=== PATIENT | male | born 1980 | race American Indian/Alaskan Native ===

== ENCOUNTER 2017-07-25 15:51 | Emergency (ER) | payer MEDICAID ==
[2017-07-25 16:04] VITALS: BP 124/73
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
[2017-07-25] MEDS ORDERED: Ciprofloxacin 500 MG Tab PO ONE (18:15)
== END 2017-07-25 18:20 | disposition home or self-care (01) ==
LOC: DL.ED 15:51
DX: T83.511S Infection and inflammatory reaction due to indwelling urethral catheter, sequela (principal); K21.9 Gastro-esophageal reflux disease without esophagitis; F32.9 Major depressive disorder, single episode, unspecified; Z96.0 Presence of urogenital implants; Z98.890 Other specified postprocedural states; Z79.899 Other long term (current) drug therapy; Z87.820 Personal history of traumatic brain injury
CPT/HCPCS: 81003; 87086; 99284; A9270; 87088; 87186

== ENCOUNTER 2017-12-08 13:55 | Inpatient (IN) | payer MEDICAID ==
[2017-12-08] MEDS ORDERED: Sodium Chloride 0.9% 1,000 ML IV ONE ×2 (13:56→16:23)
[2017-12-08] MEDS ORDERED: Acetaminophen 325 MG Tab PO ONE (13:57)
[2017-12-08] MEDS: Sodium Chloride 0.9% 10 ML Syringe FLUSH PRN (14:09)
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
--- NOTE | 2017-12-08 14:33 | CR ---
Clinical history: 37-year-old male chest pain. Interpretation: Evidence of lower cervical spinal fusion. Melva thorax otherwise unremarkable on this AP portable film. Normal cardiac silhouette and no cephalization of vascular flow, signs of alveolar edema or dependent pleural fluid accumulation. No lung mass, hilar lymphadenopathy or focal lobar pneumonia. No pneumothorax. CONCLUSION: No acute cardiopulmonary abnormality.
[2017-12-08 14:38] LABS: ANION GAP 12.3; CHLORIDE,CL 97 mmol/L (101-111); SODIUM,NA 131 mmol/L (135-145)
[2017-12-08] MEDS ORDERED: Zolpidem 5 MG Tab PO PRN (16:33)
[2017-12-08] MEDS ORDERED: Docusate Sodium 100 MG Cap PO PRN (16:33)
[2017-12-08] MEDS ORDERED: Ondansetron 4 MG/2 ML SDV IVPUSH PRN (16:33)
[2017-12-08] MEDS ORDERED: Albuterol 0.083% 2.5 MG/3 ML Neb Soln NEB PRN (16:33)
[2017-12-08] MEDS ORDERED: Magnesium Hydroxide 400 MG/5 ML Susp 30 ML Cup PO PRN (16:33)
[2017-12-08] MEDS ORDERED: Morphine 2 MG/ML Syringe IVPUSH PRN (16:33)
[2017-12-08] MEDS ORDERED: Polyethylene Glycol 3350 Powder 17 GM Packet PO PRN (16:33)
[2017-12-08] MEDS ORDERED: Acetaminophen 325 MG Tab PO PRN (16:33)
[2017-12-08] MEDS ORDERED: Promethazine 25 MG/ML SDV IM PRN (16:33)
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
[2017-12-08] MEDS: Multivitamins,Therapeutic Tab PO SCH (17:36)
[2017-12-08] MEDS: Oseltamivir 75 MG Cap PO SCH ×2 (17:36→21:22)
[2017-12-08] MEDS: Acetaminophen/oxyCODONE 325-5 MG Tab PO SCH ×2 (17:37→21:22)
[2017-12-08] MEDS: PARoxetine 20 MG Tab PO SCH (17:37)
[2017-12-08] MEDS: Ketorolac 30 MG/ML SDV IVPUSH PRN (17:39)
[2017-12-08] MEDS: Albuterol/Ipratropium 3.0-0.5 MG/3 ML Neb Soln NEB SCH (18:26)
[2017-12-08] MEDS ORDERED: Sodium Chloride 0.9% 1,000 ML IV SCH (21:45)
[2017-12-09] MEDS: Acetaminophen/oxyCODONE 325-5 MG Tab PO SCH ×6 (01:27→22:29)
[2017-12-09] MEDS: Albuterol/Ipratropium 3.0-0.5 MG/3 ML Neb Soln NEB SCH ×4 (01:29→18:27)
[2017-12-09 07:32] LABS: ANION GAP 8.9; CHLORIDE,CL 110 mmol/L (101-111); SODIUM,NA 138 mmol/L (135-145)
[2017-12-09] MEDS: Ketorolac 30 MG/ML SDV IVPUSH PRN ×2 (08:15→13:49)
[2017-12-09] MEDS: Enoxaparin 40 MG/0.4 ML Syringe SUBCUT SCH (08:16)
[2017-12-09] MEDS: Sodium Chloride 0.9% 10 ML Syringe FLUSH PRN (08:17)
[2017-12-09] MEDS: Multivitamins,Therapeutic Tab PO SCH (08:17)
[2017-12-09] MEDS: Oseltamivir 75 MG Cap PO SCH ×2 (08:17→21:43)
[2017-12-09] MEDS: PARoxetine 20 MG Tab PO SCH (08:17)
[2017-12-09] MEDS: Ascorbic Acid 500 MG Tab PO SCH (08:17)
[2017-12-09] MEDS: Sodium Chloride 0.9% 1,000 ML IV SCH ×2 (09:00→21:38)
--- NOTE | 2017-12-09 09:44 | PCM.PN ---
- General Info Date of Service: 12/09/17 Admission Dx/Problem (Free Text): Admission Diagnosis/Problem Admission Diagnosis/Problem Influenza due to influenza A virus Subjective Update: Patient stated that he feels slightly better but his cough is worse. Now his coughing up a lot of green thick mucus. His shortness of breath improved. He still having fever and chills. Toradol helps. He denies nausea, vomiting, chest pain, abdominal pain, diarrhea, any other symptoms or concerns - Patient Data Vitals - Most Recent: Last Vital Signs Temp 36.9 C 12/09/17 08:00 Pulse 80 12/09/17 08:48 Resp 16 12/09/17 08:00 BP 114/64 12/09/17 08:00 Pulse Ox 95 12/09/17 08:00 Weight - Most Recent: 64.274 kg I&O - Last 24 Hours: Intake & Output 12/08/17 12/09/17 12/09/17 22:59 06:59 14:59 Intake Total 2220 912 125 Output Total 1175 450 Balance 1045 462 125 Lab Results Last 24 Hours: Laboratory Results - last 24 hr 12/09/17 12/09/17 Range/Units 07:00 07:00 WBC 12.2 H (5.0-10.0) 10^3/uL RBC 3.63 L (4.6-6.2) 10^6/uL Hgb 11.0 L D (14.0-18.0) g/dL Hct 34.2 L (40.0-54.0) % MCV 94.2 (80-100) fL MCH 30.3 (27.0-34.0) pg MCHC 32.2 L (33.0-35.0) g/dL Plt Count 200 (150-450) 10^3/uL Neut % (Auto) 78.5 H (42.2-75.2) % Lymph % (Auto) 12.7 L (20.5-50.1) % [place] % (Auto) 8.4 H (2-8) % Eos % (Auto) 0.2 L (1.0-3.0) % Baso % (Auto) 0.2 (0.0-1.0) % Sodium 138 (135-145) mmol/L Potassium 3.9 (3.6-5.0) mmol/L Chloride 110 D (101-111) mmol/L Carbon Dioxide 23.0 (21.0-31.0) mmol/L Anion Gap 8.9 BUN 11 (7-18) mg/dL Creatinine 0.6 (0.6-1.3) mg/dL Est Cr Clr Drug Dosing 154.73 mL/min Estimated GFR (MDRD) > 60 BUN/Creatinine Ratio 18.33 Glucose 101 (74-105) mg/dL Calcium 7.5 L (8.4-10.2) mg/dl Total Bilirubin 0.4 (0.2-1.0) mg/dL AST 43 H (10-42) IU/L ALT 53 (10-60) IU/L Alkaline Phosphatase 52 (42-121) IU/L Total Protein 5.4 L (6.7-8.2) g/dl Albumin 2.6 L (3.2-5.5) g/dl Globulin 2.8 Albumin/Globulin Ratio 0.93 Juliano Results Last 24 Hours: Microbiology 12/09/17 01:47 Gram Stain - Final Sputum - Expectorated Med Orders - Current: Current Medications Acetaminophen (Tylenol) 650 mg PO Q4H PRN PRN Reason: Pain (Mild 1-3)/fever Last Admin: 12/08/17 19:58 Dose: 650 mg Albuterol (Proventil Neb Soln) 2.5 mg NEB Q2H PRN PRN Reason: shortness of breath/wheezing Albuterol/Ipratropium (Duoneb 3.0-0.5 Mg/3 Ml) 3 ml NEB Q6HRRT [facility] Last Admin: 12/09/17 08:48 Dose: 3 ml Ascorbic Acid (Vitamin C) 500 mg PO DAILY [facility] Last Admin: 12/09/17 08:17 Dose: 500 mg Docusate Sodium (Colace) 100 mg PO BID PRN PRN Reason: Constipation Enoxaparin Sodium (Lovenox) 40 mg SUBCUT DAILY [facility] Last Admin: 12/09/17 08:16 Dose: 40 mg Levofloxacin/Dextrose 750 mg/ (Premix) 150 mls @ 100 mls/hr IV Q24H [facility] Sodium Chloride (Normal Saline) 1,000 mls @ 100 mls/hr IV ASDIRECTED [facility] Ketorolac Tromethamine (Toradol) 30 mg IVPUSH Q6H PRN PRN Reason: body aches, fever Stop: 12/13/17 16:33 Last Admin: 12/09/17 08:15 Dose: 30 mg Magnesium Hydroxide (Milk Of Magnesia) 30 ml PO Q12H PRN PRN Reason: Constipation Morphine Sulfate (Morphine) 2 mg IVPUSH Q2H PRN PRN Reason: Pain (severe 7-10) Multivitamins (Thera) 1 each PO DAILY [facility] Last Admin: 12/09/17 08:17 Dose: 1 each Ondansetron HCl (Zofran) 4 mg IVPUSH Q6H PRN PRN Reason: Nausea/Vomiting Oseltamivir Phosphate (Tamiflu) 75 mg PO BID [facility] Last Admin: 12/09/17 08:17 Dose: 75 mg Oxycodone/Acetaminophen (Percocet 325-5 Mg) 1 tab PO Q4H [facility] Last Admin: 12/09/17 05:28 Dose: 1 tab Paroxetine HCl (Paxil) 20 mg PO DAILY [facility] Last Admin: 12/09/17 08:17 Dose: 20 mg Polyethylene Glycol (Miralax) 17 gm PO DAILY PRN PRN Reason: Constipation Promethazine HCl (Phenergan) 12.5 mg IM Q6H PRN PRN Reason: Nausea/Vomiting Sodium Chloride (Saline Flush) 10 ml FLUSH ASDIRECTED PRN PRN Reason: Keep Vein Open Last Admin: 12/09/17 08:17 Dose: 10 ml Zolpidem Tartrate (Ambien) 5 mg PO BEDTIME PRN PRN Reason: Sleep Discontinued Medications Acetaminophen (Tylenol) 650 mg PO NOW ONE Stop: 12/08/17 13:58 Last Admin: 12/08/17 14:09 Dose: 650 mg Sodium Chloride (Normal Saline) 1,000 mls @ 999 mls/hr IV .BOLUS ONE Stop: 12/08/17 14:56 Last Infusion: 12/08/17 16:20 Dose: Infused Sodium Chloride (Normal Saline) 1,000 mls @ 250 mls/hr IV .BOLUS ONE Stop: 12/08/17 20:22 Last Admin: 12/08/17 17:33 Dose: 250 mls/hr Sodium Chloride (Normal Saline) 1,000 mls @ 100 mls/hr IV ASDIRECTED [facility] Stop: 12/09/17 07:44 Last Admin: 12/08/17 22:29 Dose: 100 mls/hr - Exam General: Alert, Oriented, Cooperative, No Acute Distress, Other (Still looks ill. ). No: Moderate Distress, Severe Distress, Sedated, Lethargic, Obtunded HEENT: Pupils Equal, Pupils Reactive, Other (Dry mouth) Neck: Supple, Trachea Midline, No JVD Lungs: Normal Respiratory Effort, Crackles, Rhonchi (Diffuse). No: Stridor, Wheezing Cardiovascular: Regular Rate, Regular Rhythm GI/Abdominal Exam: Normal Bowel Sounds, Soft, Non-Tender, No Organomegaly, No Distention, No Abnormal Bruit, No Mass (Male) Exam: Deferred Back Exam: Normal Inspection, Full Range of Motion. No: CVA Tenderness (L), CVA Tenderness (R) Extremities: Normal Inspection, Normal Range of Motion, Non-Tender, No Pedal Edema, Normal Capillary Refill Skin: Warm, Dry, Intact Neurological: No New Focal Deficit Psy/Mental Status: Alert, Normal Affect, Normal Mood - Problem List Review Problem List Initiated/Reviewed/Updated: Yes - My Orders Last 24 Hours: My Active Orders 12/08/17 16:44 Communication Order [RC] 08,20 12/08/17 16:45 Flutter Valve Therapy [RT Chest Physiotherapy] [RC] ASDIRECTED Multivitamins,Therapeutic [Thera] 1 each PO DAILY PARoxetine [Paxil] 20 mg PO DAILY 12/08/17 18:00 Acetaminophen/oxyCODONE [Percocet 325-5 MG] 1 tab PO Q4H 12/09/17 01:47 CULTURE SPUTUM + SMEAR [RM] Routine 12/09/17 09:00 Ascorbic Acid [Vitamin C] 500 mg PO DAILY 12/09/17 09:24 CXR [Chest 2V] [CR] Routine 12/09/17 09:30 Levofloxacin/Dextrose 5%-Water [Levaquin in D5W 750 MG/150 ML] 750 mg Premix Bag 1 bag IV Q24H Sodium Chloride 0.9% [Normal Saline] 1,000 ml IV ASDIRECTED - Plan Plan:: 57-year-old male with past medical history as above presented with history of, physical exam, workup consistent with influenza a and sepsis from viral infection #Influenza infection -Continue Tamiflu -Toradol IV and Tylenol by mouth as needed for body aches, headache, fever. Acetaminophen not to exceed 4000 milligram per 24 hours #Sepsis most likely due to viral infection Admission Lactic acid is 2.2. Patient received 4 L of normal saline upon admission Continue Tamiflu -We'll add levofloxacin for concern for committee acquired pneumonia #Probable committee acquired pneumonia -We'll repeat chest x-ray -Start levofloxacin empirically -Awaiting sputum culture results #Dehydration, due to influenza and decreased oral intake -Continue IV fluid at 100 mL per hour of normal saline -Fritz catheter for more accurate urine output. Patient also requested the Fritz catheter #Hyponatremia -Resolved Sodium on admission is 131 #Elevated liver enzymes Most likely from sepsis and dehydration Improved #Paraplegia, chronic Change position every 2 hours #Urine retention, 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 He does self-catheterization Fritz catheter is placed per patient's request #Chronic pain Continue oxycodone/acetaminophen that he takes at home #Depression and anxiety, chronic Stable Continue paroxetine CODE STATUS: Full Lovenox for DVT prophylaxis
--- NOTE | 2017-12-09 10:34 | CR ---
Clinical history: 37-year-old male with "influenza A" and possible pneumonia. Interpretation: No new signs of lobar pneumonia when compared to recent 08 December chest radiograph or... earlier CT scan chest 21 July 2014. Evidence of lower cervical spinal fusion. Normal cardiac silhouette without alveolar edema or dependent pleural effusion. No atelectasis/collapse. No pneumothorax.
[2017-12-09] MEDS: Levofloxacin/Dextrose 5%-Water 750 MG in Premix Bag 1 BAG IV SCH (11:01)
[2017-12-10] MEDS: Albuterol/Ipratropium 3.0-0.5 MG/3 ML Neb Soln NEB SCH ×4 (00:51→17:43)
[2017-12-10] MEDS: Acetaminophen/oxyCODONE 325-5 MG Tab PO SCH ×6 (02:58→21:57)
[2017-12-10] MEDS: Sodium Chloride 0.9% 1,000 ML IV SCH (07:46)
[2017-12-10] MEDS: Oseltamivir 75 MG Cap PO SCH ×2 (09:13→21:57)
[2017-12-10] MEDS: PARoxetine 20 MG Tab PO SCH (09:14)
[2017-12-10] MEDS: Ascorbic Acid 500 MG Tab PO SCH (09:14)
[2017-12-10] MEDS: Multivitamins,Therapeutic Tab PO SCH (09:14)
[2017-12-10] MEDS: Enoxaparin 40 MG/0.4 ML Syringe SUBCUT SCH (09:15)
[2017-12-10] MEDS: Levofloxacin/Dextrose 5%-Water 750 MG in Premix Bag 1 BAG IV SCH (10:33)
[2017-12-10] MEDS ORDERED: LORazepam 1 MG Tab PO PRN (11:57)
--- NOTE | 2017-12-10 11:58 | PCM.PN ---
- General Info Date of Service: 12/10/17 Admission Dx/Problem (Free Text): Admission Diagnosis/Problem Admission Diagnosis/Problem Influenza due to influenza A virus Subjective Update: Patient stated that he feels better. He said that he is breathing better and his cough improved. He denies fever or chills since yesterday evening, however he had sweats this morning. He denies nausea, vomiting, chest pain, abdominal pain, diarrhea, any other symptoms or concerns - Patient Data Vitals - Most Recent: Last Vital Signs Temp 36.9 C 12/10/17 11:00 Pulse 77 12/10/17 11:00 Resp 20 12/10/17 11:00 BP 115/69 12/10/17 11:00 Pulse Ox 99 12/10/17 11:00 Weight - Most Recent: 64.274 kg I&O - Last 24 Hours: Intake & Output 12/09/17 12/10/17 12/10/17 22:59 06:59 14:59 Intake Total 1560 984 223 Output Total 475 600 Balance 1085 384 223 Juliano Results Last 24 Hours: Microbiology 12/09/17 01:47 Gram Stain - Final Sputum - Expectorated Sputum Culture - Preliminary Normal [facility] Orders - Current: Current Medications Acetaminophen (Tylenol) 650 mg PO Q4H PRN PRN Reason: Pain (Mild 1-3)/fever Last Admin: 12/08/17 19:58 Dose: 650 mg Albuterol (Proventil Neb Soln) 2.5 mg NEB Q2H PRN PRN Reason: shortness of breath/wheezing Albuterol/Ipratropium (Duoneb 3.0-0.5 Mg/3 Ml) 3 ml NEB Q6HRRT [facility] Last Admin: 12/10/17 09:12 Dose: 3 ml Ascorbic Acid (Vitamin C) 500 mg PO DAILY [facility] Last Admin: 12/10/17 09:14 Dose: 500 mg Docusate Sodium (Colace) 100 mg PO BID PRN PRN Reason: Constipation Enoxaparin Sodium (Lovenox) 40 mg SUBCUT DAILY [facility] Last Admin: 12/10/17 09:15 Dose: 40 mg Levofloxacin/Dextrose 750 mg/ (Premix) 150 mls @ 100 mls/hr IV Q24H [facility] Last Admin: 12/10/17 10:33 Dose: 100 mls/hr Sodium Chloride (Normal Saline) 1,000 mls @ 100 mls/hr IV ASDIRECTED [facility] Last Admin: 12/10/17 07:46 Dose: 100 mls/hr Ketorolac Tromethamine (Toradol) 30 mg IVPUSH Q6H PRN PRN Reason: body aches, fever Stop: 12/13/17 16:33 Last Admin: 12/09/17 13:49 Dose: 30 mg Magnesium Hydroxide (Milk Of Magnesia) 30 ml PO Q12H PRN PRN Reason: Constipation Last Admin: 12/10/17 09:15 Dose: 30 ml Morphine Sulfate (Morphine) 2 mg IVPUSH Q2H PRN PRN Reason: Pain (severe 7-10) Multivitamins (Thera) 1 each PO DAILY [facility] Last Admin: 12/10/17 09:14 Dose: 1 each Ondansetron HCl (Zofran) 4 mg IVPUSH Q6H PRN PRN Reason: Nausea/Vomiting Oseltamivir Phosphate (Tamiflu) 75 mg PO BID [facility] Last Admin: 12/10/17 09:13 Dose: 75 mg Oxycodone/Acetaminophen (Percocet 325-5 Mg) 1 tab PO Q4H [facility] Last Admin: 12/10/17 09:14 Dose: 1 tab Paroxetine HCl (Paxil) 20 mg PO DAILY [facility] Last Admin: 12/10/17 09:14 Dose: 20 mg Polyethylene Glycol (Miralax) 17 gm PO DAILY PRN PRN Reason: Constipation Promethazine HCl (Phenergan) 12.5 mg IM Q6H PRN PRN Reason: Nausea/Vomiting Sodium Chloride (Saline Flush) 10 ml FLUSH ASDIRECTED PRN PRN Reason: Keep Vein Open Last Admin: 12/09/17 08:17 Dose: 10 ml Zolpidem Tartrate (Ambien) 5 mg PO BEDTIME PRN PRN Reason: Sleep Last Admin: 12/09/17 22:28 Dose: 5 mg Discontinued Medications Acetaminophen (Tylenol) 650 mg PO NOW ONE Stop: 12/08/17 13:58 Last Admin: 12/08/17 14:09 Dose: 650 mg Sodium Chloride (Normal Saline) 1,000 mls @ 999 mls/hr IV .BOLUS ONE Stop: 12/08/17 14:56 Last Infusion: 12/08/17 16:20 Dose: Infused Sodium Chloride (Normal Saline) 1,000 mls @ 250 mls/hr IV .BOLUS ONE Stop: 12/08/17 20:22 Last Admin: 12/08/17 17:33 Dose: 250 mls/hr Sodium Chloride (Normal Saline) 1,000 mls @ 100 mls/hr IV ASDIRECTED [facility] Stop: 12/09/17 07:44 Last Infusion: 12/09/17 10:27 Dose: Infused - Exam General: Alert, Oriented, Cooperative, No Acute Distress. No: Mild Distress, Moderate Distress, Severe Distress, Sedated, Lethargic, Obtunded HEENT: Pupils Equal, Pupils Reactive, EOMI, Mucous Membr. Moist/[place] Neck: Supple, Trachea Midline, No JVD Lungs: Clear to Auscultation, Normal Respiratory Effort. No: Decreased Breath Sounds, Crackles, Rales, Rhonchi, Rub, Stridor, Wheezing Cardiovascular: Regular Rate, Regular Rhythm GI/Abdominal Exam: Normal Bowel Sounds, Soft, Non-Tender, No Organomegaly, No Distention, No Abnormal Bruit, No Mass (Male) Exam: Deferred Back Exam: No: CVA Tenderness (L), CVA Tenderness (R) Extremities: Normal Inspection, Normal Range of Motion, Non-Tender, No Pedal Edema, Normal Capillary Refill Neurological: No New Focal Deficit Psy/Mental Status: Alert, Anxious. No: Suicidal Ideation, Homicidal Ideation, Hallucinations, Withdrawal Symptoms - Problem List Review Problem List Initiated/Reviewed/Updated: Yes - My Orders Last 24 Hours: My Active Orders 12/11/17 05:11 CBC WITH AUTO DIFF [HEME] Routine CMP [COMPREHENSIVE METABOLIC PN,CMP] [CHEM] AM - Plan Plan:: 57-year-old male with past medical history as above presented with history of, physical exam, workup consistent with influenza a and sepsis from viral infection #Influenza infection -Continue Tamiflu -Toradol IV and Tylenol by mouth as needed for body aches, headache, fever, maximum 5 doses. Acetaminophen not to exceed 4000 milligram per 24 hours #Sepsis most likely due to viral infection Admission Lactic acid is 2.2. Patient received 4 L of normal saline upon admission, patient had IV fluid infusion at 100 mL per hour. Patient's appetite improved so we'll stop his IV fluid infusion today. Continue Tamiflu -Continue levofloxacin #Probable committee acquired pneumonia -Repeat chest x-ray from yesterday did not report any infiltrates or pneumothorax -Continue levofloxacin empirically -Awaiting sputum culture results #Dehydration, due to influenza and decreased oral intake Improved. Patient is having good urine output Stop IV fluid as afternoon Encourage oral fluid intake -Fritz catheter for more accurate urine output. Patient also requested the Fritz catheter #Hyponatremia -Resolved Sodium on admission is 131 #Elevated liver enzymes Most likely from sepsis and dehydration Improved #Paraplegia, chronic Change position every 2 hours #Urine retention, 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 He does self-catheterization Fritz catheter is placed per patient's request #Chronic pain Continue oxycodone/acetaminophen that he takes at home #Depression and anxiety, chronic Stable Continue paroxetine -Add Ativan as needed as patient looks anxious. CODE STATUS: Full Lovenox for DVT prophylaxis
[2017-12-10] MEDS ORDERED: Bisacodyl 10 MG Supp RECTAL PRN (16:54)
[2017-12-11] MEDS: Acetaminophen/oxyCODONE 325-5 MG Tab PO SCH ×6 (01:56→21:30)
[2017-12-11] MEDS: Albuterol/Ipratropium 3.0-0.5 MG/3 ML Neb Soln NEB SCH ×4 (01:57→17:46)
[2017-12-11 07:04] LABS: ANION GAP 9.4; CHLORIDE,CL 104 mmol/L (101-111); SODIUM,NA 138 mmol/L (135-145)
[2017-12-11] MEDS: Ascorbic Acid 500 MG Tab PO SCH (08:54)
[2017-12-11] MEDS: Multivitamins,Therapeutic Tab PO SCH (08:54)
[2017-12-11] MEDS: Oseltamivir 75 MG Cap PO SCH ×2 (08:54→20:31)
[2017-12-11] MEDS: PARoxetine 20 MG Tab PO SCH (08:54)
[2017-12-11] MEDS: Enoxaparin 40 MG/0.4 ML Syringe SUBCUT SCH (08:54)
[2017-12-11] MEDS: Levofloxacin/Dextrose 5%-Water 750 MG in Premix Bag 1 BAG IV SCH (10:36)
--- NOTE | 2017-12-11 12:03 | PCM.PN ---
- General Info Date of Service: 12/11/17 Admission Dx/Problem (Free Text): Admission Diagnosis/Problem Admission Diagnosis/Problem Influenza due to influenza A virus and weakness Subjective Update: Patient stated that he feels better. He said that he is breathing better and his cough improved. He denies fever or chills . He denies nausea, vomiting, chest pain, abdominal pain, diarrhea, any other symptoms , but has rt sided chest wall pain with deep breathing Functional Status: Reports: Pain Controlled, Tolerating Diet, Urinating - Review of Systems General: Reports: Weakness, Appetite (good). Denies: Fever, Chills HEENT: Denies: Post Nasal Drip, Sinus Congestion, Sore Throat, Visual Changes Pulmonary: Reports: Other (Decrease air movement into Rt Lower lobe). Denies: Shortness of Breath, Cough, Sputum, Wheezing Cardiovascular: Denies: Chest Pain, Edema, Lightheadedness Gastrointestinal: Denies: Abdominal Pain, Diarrhea, Difficulty Swallowing, Nausea, Vomiting Genitourinary: Denies: Dysuria, Frequency, Burning, Urgency Musculoskeletal: Denies: Neck Pain, Arm Pain, Hand Pain, Foot Pain Skin: Denies: Cyanosis, Jaundice, Bruising, Pruritis, Rash Neurological: Reports: Other (paraplegic). Denies: Confusion, Tremors Psychiatric: Denies: Confusion, Anxiety - Patient Data Vitals - Most Recent: Last Vital Signs Temp 36.4 C 12/11/17 11:41 Pulse 80 12/11/17 11:41 Resp 20 12/11/17 11:41 BP 121/67 12/11/17 11:41 Pulse Ox 99 12/11/17 11:41 Weight - Most Recent: 64.274 kg I&O - Last 24 Hours: Intake & Output 12/10/17 12/11/17 12/11/17 22:59 06:59 14:59 Intake Total 3423 300 240 Output Total 3325 1600 Balance 98 -1300 240 Lab Results Last 24 Hours: Laboratory Results - last 24 hr 12/11/17 12/11/17 Range/Units 06:10 06:10 WBC 5.8 (5.0-10.0) 10^3/uL RBC 3.97 L (4.6-6.2) 10^6/uL Hgb 11.9 L (14.0-18.0) g/dL Hct 37.0 L (40.0-54.0) % MCV 93.2 (80-100) fL MCH 30.0 (27.0-34.0) pg MCHC 32.2 L (33.0-35.0) g/dL Plt Count 266 (150-450) 10^3/uL Neut % (Auto) 52.4 (42.2-75.2) % Lymph % (Auto) 32.7 (20.5-50.1) % Cotton % (Auto) 8.5 H (2-8) % Eos % (Auto) 6.1 H (1.0-3.0) % Baso % (Auto) 0.3 (0.0-1.0) % Sodium 138 (135-145) mmol/L Potassium 4.4 (3.6-5.0) mmol/L Chloride 104 (101-111) mmol/L Carbon Dioxide 29.0 (21.0-31.0) mmol/L Anion Gap 9.4 BUN 7 (7-18) mg/dL Creatinine 0.6 (0.6-1.3) mg/dL Est Cr Clr Drug Dosing 154.73 mL/min Estimated GFR (MDRD) > 60 BUN/Creatinine Ratio 11.66 Glucose 89 (74-105) mg/dL Calcium 8.1 L (8.4-10.2) mg/dl Total Bilirubin 0.4 (0.2-1.0) mg/dL AST 43 H (10-42) IU/L ALT 56 (10-60) IU/L Alkaline Phosphatase 52 (42-121) IU/L Total Protein 6.0 L (6.7-8.2) g/dl Albumin 2.7 L (3.2-5.5) g/dl Globulin 3.3 Albumin/Globulin Ratio 0.82 Juliano Results Last 24 Hours: Microbiology 12/09/17 01:47 Gram Stain - Final Sputum - Expectorated Sputum Culture - Preliminary Normal [facility] Orders - Current: Current Medications Acetaminophen (Tylenol) 650 mg PO Q4H PRN PRN Reason: Pain (Mild 1-3)/fever Last Admin: 12/08/17 19:58 Dose: 650 mg Albuterol (Proventil Neb Soln) 2.5 mg NEB Q2H PRN PRN Reason: shortness of breath/wheezing Albuterol/Ipratropium (Duoneb 3.0-0.5 Mg/3 Ml) 3 ml NEB Q6HRRT [facility] Last Admin: 12/11/17 08:37 Dose: 3 ml Ascorbic Acid (Vitamin C) 500 mg PO DAILY [facility] Last Admin: 12/11/17 08:54 Dose: 500 mg Bisacodyl (Dulcolax) 10 mg RECTAL DAILY PRN PRN Reason: Constipation Docusate Sodium (Colace) 100 mg PO BID PRN PRN Reason: Constipation Enoxaparin Sodium (Lovenox) 40 mg SUBCUT DAILY [facility] Last Admin: 12/11/17 08:54 Dose: 40 mg Levofloxacin/Dextrose 750 mg/ (Premix) 150 mls @ 100 mls/hr IV Q24H [facility] Last Admin: 12/11/17 10:36 Dose: 100 mls/hr Ketorolac Tromethamine (Toradol) 30 mg IVPUSH Q6H PRN PRN Reason: body aches, fever Stop: 12/13/17 16:33 Last Admin: 12/09/17 13:49 Dose: 30 mg Lorazepam (Ativan) 1 mg PO Q8H PRN PRN Reason: Anxiety Magnesium Hydroxide (Milk Of Magnesia) 30 ml PO Q12H PRN PRN Reason: Constipation Last Admin: 12/10/17 09:15 Dose: 30 ml Morphine Sulfate (Morphine) 2 mg IVPUSH Q2H PRN PRN Reason: Pain (severe 7-10) Multivitamins (Thera) 1 each PO DAILY [facility] Last Admin: 12/11/17 08:54 Dose: 1 each Ondansetron HCl (Zofran) 4 mg IVPUSH Q6H PRN PRN Reason: Nausea/Vomiting Oseltamivir Phosphate (Tamiflu) 75 mg PO BID [facility] Last Admin: 12/11/17 08:54 Dose: 75 mg Oxycodone/Acetaminophen (Percocet 325-5 Mg) 1 tab PO Q4H [facility] Last Admin: 12/11/17 10:36 Dose: 1 tab Paroxetine HCl (Paxil) 20 mg PO DAILY [facility] Last Admin: 12/11/17 08:54 Dose: 20 mg Polyethylene Glycol (Miralax) 17 gm PO DAILY PRN PRN Reason: Constipation Promethazine HCl (Phenergan) 12.5 mg IM Q6H PRN PRN Reason: Nausea/Vomiting Sodium Chloride (Saline Flush) 10 ml FLUSH ASDIRECTED PRN PRN Reason: Keep Vein Open Last Admin: 12/09/17 08:17 Dose: 10 ml Zolpidem Tartrate (Ambien) 5 mg PO BEDTIME PRN PRN Reason: Sleep Last Admin: 12/09/17 22:28 Dose: 5 mg Discontinued Medications Acetaminophen (Tylenol) 650 mg PO NOW ONE Stop: 12/08/17 13:58 Last Admin: 12/08/17 14:09 Dose: 650 mg Sodium Chloride (Normal Saline) 1,000 mls @ 999 mls/hr IV .BOLUS ONE Stop: 12/08/17 14:56 Last Infusion: 12/08/17 16:20 Dose: Infused Sodium Chloride (Normal Saline) 1,000 mls @ 250 mls/hr IV .BOLUS ONE Stop: 12/08/17 20:22 Last Admin: 12/08/17 17:33 Dose: 250 mls/hr Sodium Chloride (Normal Saline) 1,000 mls @ 100 mls/hr IV ASDIRECTED [facility] Stop: 12/09/17 07:44 Last Infusion: 12/09/17 10:27 Dose: Infused Sodium Chloride (Normal Saline) 1,000 mls @ 100 mls/hr IV ASDIRECTED [facility] Stop: 12/10/17 18:00 Last Admin: 12/10/17 07:46 Dose: 100 mls/hr - Exam Quality Assessment: DVT Prophylaxis. No: Supplemental Oxygen, Urine Catheter General: Alert, Oriented, Cooperative, No Acute Distress HEENT: Pupils Equal, EOMI, Mucous Membr. Moist/[place] Neck: Supple, No JVD, No Thyromegaly Lungs: Clear to Auscultation, Normal Respiratory Effort, Decreased Breath Sounds (on rt lower lobe). No: Crackles, Wheezing Cardiovascular: Regular Rate GI/Abdominal Exam: Normal Bowel Sounds, Soft, No Distention. No: Guarding, Rigid, Rebound, Tender (Male) Exam: Deferred Back Exam: Normal Inspection Extremities: Normal Inspection, No Pedal Edema Skin: Warm, Dry, Intact Neurological: Other (paraplegic) Psy/Mental Status: Alert, Normal Affect, Normal Mood - Problem List Review Problem List Initiated/Reviewed/Updated: Yes - Plan Plan:: 57-year-old male with past medical history paraplegia from Cervical fracture, presented with respiratory symptom and work up consistent with influenza A and sepsis from viral infection #Influenza infection -Continue Tamiflu -Toradol IV and Tylenol by mouth as needed for body aches, headache, fever, maximum 5 doses. Acetaminophen not to exceed 4000 milligram per 24 hours #Sepsis most likely due to viral infection -Continue Tamiflu -Continue levofloxacin #Probable committee acquired pneumonia -Repeat chest x-ray from 12/09/17 did not report any infiltrates or pneumothorax -Continue levofloxacin empirically - sputum culture normal lea #Hyponatremia -Resolved Sodium on admission is 131 #Elevated liver enzymes Most likely from sepsis and dehydration Improved #Paraplegia, chronic Change position every 2 hours #Urine retention, 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 He does self-catheterization Fritz catheter is placed per patient's request #Chronic pain Continue oxycodone/acetaminophen that he takes at home #Depression and anxiety, chronic Stable Continue paroxetine -Add Ativan as needed as patient looks anxious. CODE STATUS: Full Lovenox for DVT prophylaxis
[2017-12-12] MEDS: Albuterol/Ipratropium 3.0-0.5 MG/3 ML Neb Soln NEB SCH ×4 (01:58→17:29)
[2017-12-12] MEDS: Acetaminophen/oxyCODONE 325-5 MG Tab PO SCH ×6 (02:07→21:52)
[2017-12-12] MEDS: Oseltamivir 75 MG Cap PO SCH ×2 (08:43→21:52)
[2017-12-12] MEDS: Multivitamins,Therapeutic Tab PO SCH (08:43)
[2017-12-12] MEDS: PARoxetine 20 MG Tab PO SCH (08:43)
[2017-12-12] MEDS: Ascorbic Acid 500 MG Tab PO SCH (08:43)
[2017-12-12] MEDS: Enoxaparin 40 MG/0.4 ML Syringe SUBCUT SCH (08:45)
[2017-12-12] MEDS: Levofloxacin/Dextrose 5%-Water 750 MG in Premix Bag 1 BAG IV SCH (09:59)
--- NOTE | 2017-12-12 10:43 | PCM.PN ---
- General Info Date of Service: 12/12/17 Admission Dx/Problem (Free Text): Admission Diagnosis/Problem Admission Diagnosis/Problem Influenza due to influenza A virus and weakness Subjective Update: Patient stated that he feels better. He said that he is breathing better and his cough improved. He denies fever or chills . He denies nausea, vomiting, chest pain, abdominal pain, diarrhea, any other symptoms , but has rt sided chest wall pain with deep breathing but improving. He is also able to come out of bed to chair with little assistance Functional Status: Reports: Pain Controlled, Tolerating Diet, Urinating - Review of Systems General: Reports: Weakness, Appetite (good). Denies: Fever, Chills HEENT: Denies: Dysphasia, Sinus Congestion, Sore Throat, Visual Changes Pulmonary: Reports: Shortness of Breath (mild), Cough (but no sputum). Denies: Sputum, Wheezing Cardiovascular: Denies: Chest Pain, Lightheadedness Gastrointestinal: Denies: Abdominal Pain, Diarrhea, Difficulty Swallowing, Nausea, Vomiting Genitourinary: Denies: Dysuria, Frequency, Burning, Flank Pain Musculoskeletal: Reports: Shoulder Pain, Other (occasional jerking of his lower extremity). Denies: Leg Pain, Foot Pain Skin: Denies: Cyanosis, Bruising, Pruritis, Rash Neurological: Denies: Confusion, Numbness, Tremors Psychiatric: Denies: Confusion, Anxiety - Patient Data Vitals - Most Recent: Last Vital Signs Temp 37.0 C 12/12/17 07:55 Pulse 76 12/12/17 07:55 Resp 20 12/12/17 07:55 BP 117/73 12/12/17 07:55 Pulse Ox 99 12/12/17 07:55 Weight - Most Recent: 64.274 kg I&O - Last 24 Hours: Intake & Output 12/11/17 12/12/17 12/12/17 22:59 06:59 14:59 Intake Total 900 360 400 Output Total 500 2000 Balance 400 -1640 400 Med Orders - Current: Current Medications Acetaminophen (Tylenol) 650 mg PO Q4H PRN PRN Reason: Pain (Mild 1-3)/fever Last Admin: 12/08/17 19:58 Dose: 650 mg Albuterol (Proventil Neb Soln) 2.5 mg NEB Q2H PRN PRN Reason: shortness of breath/wheezing Albuterol/Ipratropium (Duoneb 3.0-0.5 Mg/3 Ml) 3 ml NEB Q6HRRT [facility] Last Admin: 12/12/17 07:22 Dose: 3 ml Ascorbic Acid (Vitamin C) 500 mg PO DAILY [facility] Last Admin: 12/12/17 08:43 Dose: 500 mg Bisacodyl (Dulcolax) 10 mg RECTAL DAILY PRN PRN Reason: Constipation Docusate Sodium (Colace) 100 mg PO BID PRN PRN Reason: Constipation Enoxaparin Sodium (Lovenox) 40 mg SUBCUT DAILY [facility] Last Admin: 12/12/17 08:45 Dose: 40 mg Levofloxacin/Dextrose 750 mg/ (Premix) 150 mls @ 100 mls/hr IV Q24H [facility] Last Admin: 12/12/17 09:59 Dose: 100 mls/hr Ketorolac Tromethamine (Toradol) 30 mg IVPUSH Q6H PRN PRN Reason: body aches, fever Stop: 12/13/17 16:33 Last Admin: 12/09/17 13:49 Dose: 30 mg Lorazepam (Ativan) 1 mg PO Q8H PRN PRN Reason: Anxiety Magnesium Hydroxide (Milk Of Magnesia) 30 ml PO Q12H PRN PRN Reason: Constipation Last Admin: 12/10/17 09:15 Dose: 30 ml Morphine Sulfate (Morphine) 2 mg IVPUSH Q2H PRN PRN Reason: Pain (severe 7-10) Multivitamins (Thera) 1 each PO DAILY [facility] Last Admin: 12/12/17 08:43 Dose: 1 each Ondansetron HCl (Zofran) 4 mg IVPUSH Q6H PRN PRN Reason: Nausea/Vomiting Oseltamivir Phosphate (Tamiflu) 75 mg PO BID [facility] Last Admin: 12/12/17 08:43 Dose: 75 mg Oxycodone/Acetaminophen (Percocet 325-5 Mg) 1 tab PO Q4H [facility] Last Admin: 12/12/17 10:01 Dose: 1 tab Paroxetine HCl (Paxil) 20 mg PO DAILY [facility] Last Admin: 12/12/17 08:43 Dose: 20 mg Polyethylene Glycol (Miralax) 17 gm PO DAILY PRN PRN Reason: Constipation Promethazine HCl (Phenergan) 12.5 mg IM Q6H PRN PRN Reason: Nausea/Vomiting Sodium Chloride (Saline Flush) 10 ml FLUSH ASDIRECTED PRN PRN Reason: Keep Vein Open Last Admin: 12/09/17 08:17 Dose: 10 ml Zolpidem Tartrate (Ambien) 5 mg PO BEDTIME PRN PRN Reason: Sleep Last Admin: 12/09/17 22:28 Dose: 5 mg Discontinued Medications Acetaminophen (Tylenol) 650 mg PO NOW ONE Stop: 12/08/17 13:58 Last Admin: 12/08/17 14:09 Dose: 650 mg Sodium Chloride (Normal Saline) 1,000 mls @ 999 mls/hr IV .BOLUS ONE Stop: 12/08/17 14:56 Last Infusion: 12/08/17 16:20 Dose: Infused Sodium Chloride (Normal Saline) 1,000 mls @ 250 mls/hr IV .BOLUS ONE Stop: 12/08/17 20:22 Last Admin: 12/08/17 17:33 Dose: 250 mls/hr Sodium Chloride (Normal Saline) 1,000 mls @ 100 mls/hr IV ASDIRECTED [facility] Stop: 12/09/17 07:44 Last Infusion: 12/09/17 10:27 Dose: Infused Sodium Chloride (Normal Saline) 1,000 mls @ 100 mls/hr IV ASDIRECTED [facility] Stop: 12/10/17 18:00 Last Admin: 12/10/17 07:46 Dose: 100 mls/hr - Exam Quality Assessment: DVT Prophylaxis. No: Supplemental Oxygen, Urine Catheter General: Alert, Oriented, Cooperative, No Acute Distress HEENT: Pupils Equal, Pupils Reactive, Mucous Membr. Moist/[place] Neck: Supple, No JVD, No Thyromegaly Lungs: Clear to Auscultation, Normal Respiratory Effort, Other (decreased air movement Rt lower lobe). No: Crackles GI/Abdominal Exam: Normal Bowel Sounds, Soft, Non-Tender, No Distention. No: Guarding, Rigid, Rebound, Tender (Male) Exam: Deferred Back Exam: Normal Inspection Extremities: Normal Inspection, No Pedal Edema Skin: Warm, Dry, Intact Neurological: No New Focal Deficit Psy/Mental Status: Alert, Normal Affect, Normal Mood - Problem List Review Problem List Initiated/Reviewed/Updated: Yes - My Orders Last 24 Hours: My Active Orders 12/13/17 06:00 BASIC METABOLIC PANEL,BMP [CHEM] Routine - Plan Plan:: 57-year-old male with past medical history paraplegia from Cervical fracture, presented with respiratory symptom and work up consistent with influenza A and sepsis from viral infection #Influenza infection -Continue Tamiflu -Toradol IV and Tylenol by mouth as needed for body aches, headache #Sepsis most likely due to viral infection -Continue Tamiflu -Continue levofloxacin #Probable committee acquired pneumonia -Repeat chest x-ray from 12/09/17 did not report any infiltrates or pneumothorax -Continue levofloxacin empirically - sputum culture normal di #Hyponatremia -Resolved Sodium on admission is 131 and it was 138 meq./L ( on 12/11/17) #Elevated liver enzymes Most likely from sepsis and dehydration Improved #Paraplegia, chronic Change position every 2 hours #Urine retention, 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 He does self-catheterization Fritz catheter is placed per patient's request #Chronic pain Continue oxycodone/acetaminophen that he takes at home #Depression and anxiety, chronic Stable Continue paroxetine -Add Ativan as needed as patient looks anxious. DVT prophylaxis: Continue Lovenox CODE STATUS: Full L
[2017-12-13] MEDS: Albuterol/Ipratropium 3.0-0.5 MG/3 ML Neb Soln NEB SCH ×4 (02:03→18:48)
[2017-12-13] MEDS: Acetaminophen/oxyCODONE 325-5 MG Tab PO SCH ×6 (02:03→22:05)
[2017-12-13 06:54] LABS: ANION GAP 11.5; CHLORIDE,CL 98 mmol/L (101-111); SODIUM,NA 137 mmol/L (135-145)
--- NOTE | 2017-12-13 08:35 | PCM.PN ---
- General Info Date of Service: 12/13/17 Subjective Update: Seen on rounds. Patient feeling bettert. No new complaints. Functional Status: Reports: Pain Controlled - Review of Systems General: Reports: No Symptoms HEENT: Reports: No Symptoms Pulmonary: Reports: No Symptoms Cardiovascular: Reports: No Symptoms Gastrointestinal: Reports: No Symptoms Genitourinary: Reports: No Symptoms Musculoskeletal: Reports: No Symptoms Skin: Reports: No Symptoms Neurological: Reports: No Symptoms Psychiatric: Reports: No Symptoms - Patient Data Vitals - Most Recent: Last Vital Signs Temp 98.9 F 12/13/17 07:00 Pulse 76 12/13/17 07:00 Resp 20 12/13/17 07:00 BP 102/66 12/13/17 07:00 Pulse Ox 96 12/13/17 07:00 Weight - Most Recent: 141 lb 11.2 oz I&O - Last 24 Hours: Intake & Output 12/12/17 12/13/17 12/13/17 22:59 06:59 14:59 Intake Total 448 475 Output Total 1400 2600 Balance -952 -2983 Lab Results Last 24 Hours: Laboratory Results - last 24 hr 12/13/17 Range/Units 06:15 Sodium 137 (135-145) mmol/L Potassium 4.5 (3.6-5.0) mmol/L Chloride 98 L (101-111) mmol/L Carbon Dioxide 32.0 H (21.0-31.0) mmol/L Anion Gap 11.5 BUN 10 (7-18) mg/dL Creatinine 0.8 (0.6-1.3) mg/dL Est Cr Clr Drug Dosing 116.05 mL/min Estimated GFR (MDRD) > 60 Glucose 90 (74-105) mg/dL Calcium 8.8 (8.4-10.2) mg/dl Med Orders - Current: Current Medications Acetaminophen (Tylenol) 650 mg PO Q4H PRN PRN Reason: Pain (Mild 1-3)/fever Last Admin: 12/08/17 19:58 Dose: 650 mg Albuterol (Proventil Neb Soln) 2.5 mg NEB Q2H PRN PRN Reason: shortness of breath/wheezing Albuterol/Ipratropium (Duoneb 3.0-0.5 Mg/3 Ml) 3 ml NEB Q6HRRT [facility]AT[facility] Last Admin: 12/13/17 06:59 Dose: 3 ml Ascorbic Acid (Vitamin C) 500 mg PO DAILY [facility] Last Admin: 12/12/17 08:43 Dose: 500 mg Bisacodyl (Dulcolax) 10 mg RECTAL DAILY PRN PRN Reason: Constipation Docusate Sodium (Colace) 100 mg PO BID PRN PRN Reason: Constipation Enoxaparin Sodium (Lovenox) 40 mg SUBCUT DAILY [facility] Last Admin: 12/12/17 08:45 Dose: 40 mg Levofloxacin/Dextrose 750 mg/ (Premix) 150 mls @ 100 mls/hr IV Q24H [facility] Last Admin: 12/12/17 09:59 Dose: 100 mls/hr Ketorolac Tromethamine (Toradol) 30 mg IVPUSH Q6H PRN PRN Reason: body aches, fever Stop: 12/13/17 16:33 Last Admin: 12/09/17 13:49 Dose: 30 mg Lorazepam (Ativan) 1 mg PO Q8H PRN PRN Reason: Anxiety Magnesium Hydroxide (Milk Of Magnesia) 30 ml PO Q12H PRN PRN Reason: Constipation Last Admin: 12/10/17 09:15 Dose: 30 ml Morphine Sulfate (Morphine) 2 mg IVPUSH Q2H PRN PRN Reason: Pain (severe 7-10) Multivitamins (Thera) 1 each PO DAILY [facility] Last Admin: 12/12/17 08:43 Dose: 1 each Ondansetron HCl (Zofran) 4 mg IVPUSH Q6H PRN PRN Reason: Nausea/Vomiting Last Admin: 12/12/17 12:45 Dose: 4 mg Oseltamivir Phosphate (Tamiflu) 75 mg PO BID [facility] Last Admin: 12/12/17 21:52 Dose: 75 mg Oxycodone/Acetaminophen (Percocet 325-5 Mg) 1 tab PO Q4H [facility] Last Admin: 12/13/17 06:36 Dose: 1 tab Paroxetine HCl (Paxil) 20 mg PO DAILY [facility] Last Admin: 12/12/17 08:43 Dose: 20 mg Polyethylene Glycol (Miralax) 17 gm PO DAILY PRN PRN Reason: Constipation Promethazine HCl (Phenergan) 12.5 mg IM Q6H PRN PRN Reason: Nausea/Vomiting Sodium Chloride (Saline Flush) 10 ml FLUSH ASDIRECTED PRN PRN Reason: Keep Vein Open Last Admin: 12/09/17 08:17 Dose: 10 ml Zolpidem Tartrate (Ambien) 5 mg PO BEDTIME PRN PRN Reason: Sleep Last Admin: 12/09/17 22:28 Dose: 5 mg Discontinued Medications Acetaminophen (Tylenol) 650 mg PO NOW ONE Stop: 12/08/17 13:58 Last Admin: 12/08/17 14:09 Dose: 650 mg Sodium Chloride (Normal Saline) 1,000 mls @ 999 mls/hr IV .BOLUS ONE Stop: 12/08/17 14:56 Last Infusion: 12/08/17 16:20 Dose: Infused Sodium Chloride (Normal Saline) 1,000 mls @ 250 mls/hr IV .BOLUS ONE Stop: 12/08/17 20:22 Last Admin: 12/08/17 17:33 Dose: 250 mls/hr Sodium Chloride (Normal Saline) 1,000 mls @ 100 mls/hr IV ASDIRECTED [facility]AT[facility] Stop: 12/09/17 07:44 Last Infusion: 12/09/17 10:27 Dose: Infused Sodium Chloride (Normal Saline) 1,000 mls @ 100 mls/hr IV ASDIRECTED [facility]AT[facility] Stop: 12/10/17 18:00 Last Admin: 12/10/17 07:46 Dose: 100 mls/hr - Exam General: Alert, Oriented HEENT: Pupils Equal, Pupils Reactive, EOMI, Mucous Membr. Moist/[place] Neck: Supple Lungs: Clear to Auscultation, Normal Respiratory Effort Cardiovascular: Regular Rate, Regular Rhythm GI/Abdominal Exam: Normal Bowel Sounds, Soft, Non-Tender, No Organomegaly, No Distention, No Abnormal Bruit, No Mass, Pelvis Stable (Male) Exam: No Hernia, Normal Inspection, Normal Prostate, Circumcised Back Exam: Normal Inspection, Full Range of Motion Extremities: Normal Inspection, Normal Range of Motion, Non-Tender, No Pedal Edema, Normal Capillary Refill Skin: Warm, Dry, Intact Wound/Incisions: Healing Well Neurological: No New Focal Deficit Psy/Mental Status: Alert, Normal Affect, Normal Mood EKG INTERPRETATION Rhythm: NSR [place]: Normal P-Wave: Present QRS: Normal ST-T: Normal QT: Normal - Problem List & Annotations (1) Influenza A SNOMED Code(s): 913249591 Code(s): J10.1 - FLU DUE TO OTH IDENT INFLUENZA VIRUS W OTH RESP MANIFEST Status: Acute Priority: High Current Visit: Yes - Problem List Review Problem List Initiated/Reviewed/Updated: Yes - Plan Plan:: 57-year-old male with past medical history paraplegia from Cervical fracture, presented with respiratory symptom and work up consistent with influenza A and sepsis from viral infection #Influenza infection -Improved -Continue Tamiflu -Toradol IV and Tylenol by mouth as needed for body aches, headache #Sepsis most likely due to viral infection -Resolved -Continue Tamiflu -Continue levofloxacin #Probable committee acquired pneumonia -Repeat chest x-ray from 12/09/17 did not report any infiltrates or pneumothorax -Continue levofloxacin empirically - sputum culture normal di #Hyponatremia -Resolved #Elevated liver enzymes Most likely from sepsis and dehydration Improved will repeta LFTs today #Paraplegia, chronic Change position every 2 hours #Urine retention, 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 He does self-catheterization Fritz catheter is placed per patient's request #Chronic pain Continue oxycodone/acetaminophen that he takes at home #Depression and anxiety, chronic Stable Continue paroxetine -Add Ativan as needed as patient looks anxious. DVT prophylaxis: Continue Lovenox CODE STATUS: Full
[2017-12-13] MEDS: Enoxaparin 40 MG/0.4 ML Syringe SUBCUT SCH (09:13)
[2017-12-13] MEDS: Ascorbic Acid 500 MG Tab PO SCH (09:14)
[2017-12-13] MEDS: Multivitamins,Therapeutic Tab PO SCH (09:14)
[2017-12-13] MEDS: Oseltamivir 75 MG Cap PO SCH ×2 (09:14→22:05)
[2017-12-13] MEDS: PARoxetine 20 MG Tab PO SCH (09:14)
[2017-12-13] MEDS: Levofloxacin/Dextrose 5%-Water 750 MG in Premix Bag 1 BAG IV SCH (10:28)
[2017-12-14] MEDS: Acetaminophen/oxyCODONE 325-5 MG Tab PO SCH ×4 (02:11→14:17)
[2017-12-14] MEDS: Albuterol/Ipratropium 3.0-0.5 MG/3 ML Neb Soln NEB SCH ×3 (02:12→13:41)
[2017-12-14 10:46] VITALS: BP 108/68
[2017-12-14] MEDS: PARoxetine 20 MG Tab PO SCH (10:51)
[2017-12-14] MEDS: Oseltamivir 75 MG Cap PO SCH (10:51)
[2017-12-14] MEDS: Multivitamins,Therapeutic Tab PO SCH (10:52)
[2017-12-14] MEDS: Ascorbic Acid 500 MG Tab PO SCH (10:53)
[2017-12-14] MEDS: Levofloxacin/Dextrose 5%-Water 750 MG in Premix Bag 1 BAG IV SCH (10:55)
[2017-12-14] MEDS: Enoxaparin 40 MG/0.4 ML Syringe SUBCUT SCH (10:55)
[2017-12-14] MEDS: Sodium Chloride 0.9% 10 ML Syringe FLUSH PRN (10:56)
--- NOTE | 2017-12-14 11:58 | PCM.DCSUM1 ---
Discharge Summary - Hospital Course Free Text/Narrative:: 57-year-old male with past medical history paraplegia from Cervical fracture, presented with respiratory symptom and work up consistent with influenza A and sepsis from viral infection. He was managed with Tamiflu and IV antibiotics with significant improvement. His symptoms have improved significantly and is being discharge home. He will follow with his PCP. - Discharge Data Discharge Date: 12/14/17 Discharge Disposition: Home, Self-Care 01 Condition: Good - Discharge Diagnosis/Problem(s) (1) Influenza A SNOMED Code(s): 841465453 ICD Code: J10.1 - FLU DUE TO OTH IDENT INFLUENZA VIRUS W OTH RESP MANIFEST Status: Acute Priority: High Current Visit: Yes (2) Influenza A SNOMED Code(s): 669245906 ICD Code: J10.1 - FLU DUE TO OTH IDENT INFLUENZA VIRUS W OTH RESP MANIFEST Status: Acute Current Visit: Yes (3) Sepsis SNOMED Code(s): 76271749 ICD Code: A41.9 - SEPSIS, UNSPECIFIED ORGANISM Status: Acute Current Visit: Yes (4) Sepsis SNOMED Code(s): 92878409 ICD Code: A41.9 - SEPSIS, UNSPECIFIED ORGANISM Status: Acute Current Visit: Yes - Patient Instructions Diet: Heart Healthy Diet Activity: As Tolerated - Discharge Plan Home Medications: Home Meds Ascorbic Acid [Vitamin C] 500 mg PO DAILY 10/20/13 [History] Multivitamin [Multi-Vitamin Daily] 1 each PO DAILY 10/20/13 [History] PARoxetine [Paxil] 20 mg PO DAILY 10/20/13 [History] Sildenafil [Viagra] 100 mg PO WEEKLY PRN 12/08/17 [History] oxyCODONE HCl/Acetaminophen [oxyCODONE-Acetaminophen 5-325] 1 tab PO Q4H [History] Acetaminophen [Tylenol] 650 mg PO Q4H PRN tablet 12/14/17 [Rx] Albuterol [IJD: Albuterol] 2.5 mg NEB Q2H PRN nebule 12/14/17 [Rx] Albuterol/Ipratropium [DuoNeb 3.0-0.5 MG/3 ML] 3 ml NEB Q6HRRT neb 12/14/17 [Rx ] Bisacodyl [Dulcolax] 10 mg RECTAL DAILY PRN supp 12/14/17 [Rx] Docusate Sodium [Colace] 100 mg PO BID PRN cap 12/14/17 [Rx] LORazepam [Ativan] 1 mg PO Q8H PRN tablet 12/14/17 [Rx] Magnesium Hydroxide [Milk of Magnesia] 30 ml PO Q12H PRN cup 12/14/17 [Rx] Oseltamivir Phosphate [IJD: Tamiflu] 75 mg PO BID #6 capsule 12/14/17 [Rx] Patient Handouts: Influenza, Adult, [id number] Referrals: PCP,None [Primary Care Provider] - - Discharge Summary/Plan Comment DC Time >30 min.: Yes - General Info Admission Dx/Problem (Free Text: Admission Diagnosis/Problem Admission Diagnosis/Problem Influenza due to influenza A virus and weakness Subjective Update: Seen on rounds. Patient feeling bettert. No new complaints. - Review of Systems General: Reports: No Symptoms HEENT: Reports: No Symptoms Pulmonary: Reports: No Symptoms Cardiovascular: Reports: No Symptoms Gastrointestinal: Reports: No Symptoms Genitourinary: Reports: No Symptoms Musculoskeletal: Reports: No Symptoms Skin: Reports: No Symptoms Neurological: Reports: No Symptoms Psychiatric: Reports: No Symptoms - Patient Data Vitals - Most Recent: Last Vital Signs Temp 97.9 F 12/14/17 10:45 Pulse 58 L 12/14/17 10:45 Resp 20 12/14/17 10:45 BP 108/68 12/14/17 10:45 Pulse Ox 98 12/14/17 10:45 Weight - Most Recent: 141 lb 11.2 oz I&O - Last 24 hours: Intake & Output 12/13/17 12/14/17 12/14/17 22:59 06:59 14:59 Intake Total 940 885 Output Total 775 1100 Balance 165 -215 MINDY Results - Last 24 hrs: Microbiology 12/09/17 01:47 Gram Stain - Final Sputum - Expectorated Sputum Culture - Final Haemophilus Sp, Not Influenza Med Orders - Current: Current Medications Acetaminophen (Tylenol) 650 mg PO Q4H PRN PRN Reason: Pain (Mild 1-3)/fever Last Admin: 12/08/17 19:58 Dose: 650 mg Albuterol (Proventil Neb Soln) 2.5 mg NEB Q2H PRN PRN Reason: shortness of breath/wheezing Albuterol/Ipratropium (Duoneb 3.0-0.5 Mg/3 Ml) 3 ml NEB Q6HRRT [facility] Last Admin: 12/14/17 07:34 Dose: 3 ml Ascorbic Acid (Vitamin C) 500 mg PO DAILY [facility] Last Admin: 12/14/17 10:53 Dose: 500 mg Bisacodyl (Dulcolax) 10 mg RECTAL DAILY PRN PRN Reason: Constipation Docusate Sodium (Colace) 100 mg PO BID PRN PRN Reason: Constipation Enoxaparin Sodium (Lovenox) 40 mg SUBCUT DAILY [facility] Last Admin: 12/14/17 10:55 Dose: 40 mg Levofloxacin (Levaquin) 500 mg PO Q24H [facility] Lorazepam (Ativan) 1 mg PO Q8H PRN PRN Reason: Anxiety Magnesium Hydroxide (Milk Of Magnesia) 30 ml PO Q12H PRN PRN Reason: Constipation Last Admin: 12/10/17 09:15 Dose: 30 ml Morphine Sulfate (Morphine) 2 mg IVPUSH Q2H PRN PRN Reason: Pain (severe 7-10) Multivitamins (Thera) 1 each PO DAILY [facility] Last Admin: 12/14/17 10:52 Dose: 1 each Ondansetron HCl (Zofran) 4 mg IVPUSH Q6H PRN PRN Reason: Nausea/Vomiting Last Admin: 12/12/17 12:45 Dose: 4 mg Oseltamivir Phosphate (Tamiflu) 75 mg PO BID [facility] Last Admin: 12/14/17 10:51 Dose: 75 mg Oxycodone/Acetaminophen (Percocet 325-5 Mg) 1 tab PO Q4H [facility] Last Admin: 12/14/17 10:53 Dose: 1 tab Paroxetine HCl (Paxil) 20 mg PO DAILY [facility] Last Admin: 12/14/17 10:51 Dose: 20 mg Polyethylene Glycol (Miralax) 17 gm PO DAILY PRN PRN Reason: Constipation Promethazine HCl (Phenergan) 12.5 mg IM Q6H PRN PRN Reason: Nausea/Vomiting Sodium Chloride (Saline Flush) 10 ml FLUSH ASDIRECTED PRN PRN Reason: Keep Vein Open Last Admin: 12/14/17 10:56 Dose: 10 ml Zolpidem Tartrate (Ambien) 5 mg PO BEDTIME PRN PRN Reason: Sleep Last Admin: 12/09/17 22:28 Dose: 5 mg Discontinued Medications Acetaminophen (Tylenol) 650 mg PO NOW ONE Stop: 12/08/17 13:58 Last Admin: 12/08/17 14:09 Dose: 650 mg Sodium Chloride (Normal Saline) 1,000 mls @ 999 mls/hr IV .BOLUS ONE Stop: 12/08/17 14:56 Last Infusion: 12/08/17 16:20 Dose: Infused Sodium Chloride (Normal Saline) 1,000 mls @ 250 mls/hr IV .BOLUS ONE Stop: 12/08/17 20:22 Last Admin: 12/08/17 17:33 Dose: 250 mls/hr Sodium Chloride (Normal Saline) 1,000 mls @ 100 mls/hr IV ASDIRECTED [facility] Stop: 12/09/17 07:44 Last Infusion: 12/09/17 10:27 Dose: Infused Levofloxacin/Dextrose 750 mg/ (Premix) 150 mls @ 100 mls/hr IV Q24H [facility] Last Admin: 12/14/17 10:55 Dose: 100 mls/hr Sodium Chloride (Normal Saline) 1,000 mls @ 100 mls/hr IV ASDIRECTED [facility] Stop: 12/10/17 18:00 Last Admin: 12/10/17 07:46 Dose: 100 mls/hr Ketorolac Tromethamine (Toradol) 30 mg IVPUSH Q6H PRN PRN Reason: body aches, fever Stop: 12/13/17 16:33 Last Admin: 12/09/17 13:49 Dose: 30 mg - Exam General: Reports: Alert, Oriented HEENT: Reports: Pupils Equal, Pupils Reactive, EOMI, Mucous Membr. Moist/[place] Neck: Reports: Supple Lungs: Reports: Clear to Auscultation, Normal Respiratory Effort Cardiovascular: Reports: Regular Rate, Regular Rhythm GI/Abdominal Exam: Normal Bowel Sounds, Soft, Non-Tender, No Organomegaly, No Distention, No Abnormal Bruit, No Mass, Pelvis Stable (Male) Exam: No Hernia, Normal Inspection, Normal Prostate, Circumcised Rectal (Males) Exam: Normal Exam, Normal Rectal Tone, Prostate Normal Back Exam: Reports: Normal Inspection, Full Range of Motion Extremities: Normal Inspection, Normal Range of Motion, Non-Tender, No Pedal Edema, Normal Capillary Refill Skin: Reports: Warm, Dry, Intact Wound/Incisions: Reports: Healing Well Neurological: Reports: No New Focal Deficit Psy/Mental Status: Reports: Alert, Normal Affect, Normal Mood EKG INTERPRETATION Rhythm: NSR [place]: Normal P-Wave: Present QRS: Normal ST-T: Normal QT: Normal *Q Meaningful Use (DIS) - VTE *Q VTE Criteria *Q: - Stroke *Q Stroke Criteria *Q: - AMI *Q AMI Criteria *Q:
[2017-12-15] MEDS ORDERED: Levofloxacin 500 MG Tab PO SCH (10:00)
== END 2017-12-14 16:30 | disposition home or self-care (01) | DRG 871 ==
LOC: DL.ED 13:55 → UNDOADMIN 14:49 → DL.MS 14:49
PROVIDERS: ADMIT Family Medicine; ATTEND Family Medicine
DX: A41.9 Sepsis, unspecified organism (principal); K21.9 Gastro-esophageal reflux disease without esophagitis; F32.9 Major depressive disorder, single episode, unspecified; F41.9 Anxiety disorder, unspecified; F17.200 Nicotine dependence, unspecified, uncomplicated; Z79.899 Other long term (current) drug therapy; J11.00 Influenza due to unidentified influenza virus with unspecified type of pneumonia; E87.1 Hypo-osmolality and hyponatremia; G82.20 Paraplegia, unspecified; E86.0 Dehydration; R79.89 Other specified abnormal findings of blood chemistry; T14.8XXS Other injury of unspecified body region, sequela; Y93.79 Activity, other specified sports and athletics; S12.9XXS Fracture of neck, unspecified, sequela; R33.8 Other retention of urine; G89.29 Other chronic pain
CPT/HCPCS: 36415; 51702; 71045; 80053; 81001; 83605; 85025; 87040 ×2; 87804 ×2; 96360; 99285; A9270; J7030; J7050; 71046; 80048; 87070; 87205; 94640; J1650; J1885; J1956; J2405

== ENCOUNTER 2018-04-30 15:59 | Emergency (ER) | payer OTHER, MEDICAID ==
--- NOTE | 2018-04-30 16:19 | EDM.PDOC ---
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 He admits to one loose BM yesterday and he thought maybe diarrhea was going to develop, but today he had a nl BM. Denies fever, N/V, or pain. Report good appetite and taking plenty of fluids. Pt is a paraplegic and self caths about 4 times a day for urine. Onset: Gradual Duration: Day(s): (2-3), Constant, Getting Worse Location: Reports: Other (urinary) Severity: Moderate Improves with: Reports: None Worsens with: Reports: None Associated Symptoms: Reports: No Other Symptoms - Related Data Allergies Allergy/AdvReac Type Severity Reaction Status Date / Time No Known Allergies Allergy Verified 04/30/18 16:20 Home Meds: Home Meds Multivitamin [Multi-Vitamin Daily] 1 each PO DAILY 10/20/13 [History] PARoxetine [Paxil] 20 mg PO DAILY 10/20/13 [History] Sildenafil [Viagra] 100 mg PO WEEKLY PRN 12/08/17 [History] Acetaminophen [Tylenol] 650 mg PO Q4H PRN tablet 12/14/17 [Rx] Bisacodyl [Dulcolax] 10 mg RECTAL DAILY PRN supp 12/14/17 [Rx] Past Medical History HEENT History: Reports: None Cardiovascular History: Reports: None Other Cardiovascular History: states heart rate can vary Respiratory History: Reports: Intubation, Previous Gastrointestinal History: Reports: GERD Other Gastrointestinal History: previous feeding tube, no longer present Genitourinary History: Reports: UTI, Recurrent Other Genitourinary History: self cath several times a day as needed. Other Musculoskeletal History: fractured neck at C6-C7 Neurological History: Reports: Brain Injury, Other (See Below) Other Neuro History: Head injury with accident, paraplegia Psychiatric History: Reports: Anxiety, Depression Endocrine/Metabolic History: Reports: None Hematologic History: Reports: None Immunologic History: Reports: None Oncologic (Cancer) History: Reports: None Dermatologic History: Reports: None - Infectious Disease History Infectious Disease History: Reports: Chicken Pox - Past Surgical History Head Surgeries/Procedures: Reports: None HEENT Surgical History: Reports: Other (See Below) Other HEENT Surgeries/Procedures: history of trach after accident Cardiovascular Surgical History: Reports: None Respiratory Surgical History: Reports: Other (See Below) Other Respiratory Surgeries/Procedures: hx of tracheostomy from accident, healed GI Surgical History: Reports: None Male Surgical History: Reports: None Neurological Surgical History: Reports: Other (See Below) Other Neurological Surgeries/Procedures: spinal repair/stabilzation post- accident Musculoskeletal Surgical History: Reports: Other (See Below) Other Musculoskeletal Surgeries/Procedures:: neck repair post accident, paraplegia Social & Family History - Family History Family Medical History: Noncontributory - Caffeine Use Caffeine Use: Reports: None - Living Situation & Occupation Living situation: Reports: with Significant Other Occupation: Disabled ED ROS GENERAL - Review of Systems Review Of Systems: ROS reveals no pertinent complaints other than HPI. ED EXAM, GI/ABD - Physical Exam Exam: See Below Exam Limited By: No Limitations General Appearance: Alert, WD/WN, No Apparent Distress Eyes: Bilateral: Normal Appearance Nose: Normal Inspection Throat/Mouth: Normal Inspection, Normal Lips, Normal Teeth, Normal Gums, Normal Oropharynx, Normal Voice, No Airway Compromise Head: Atraumatic, Normocephalic Neck: Normal Inspection, Supple, Non-Tender, Full Range of Motion Respiratory/Chest: No Respiratory Distress, Lungs Clear, Normal Breath Sounds, No Accessory Muscle Use, Chest Non-Tender Cardiovascular: Regular Rate, Rhythm GI/Abdominal Exam: Normal Bowel Sounds, Soft, Non-Tender, No Distention. No: Guarding, Rigid, Rebound (Male) Exam: Deferred Rectal (Males) Exam: Deferred Neurological: Alert, Oriented, CN II-XII Intact, Normal Cognition, Sensory/ Motor Deficit (chronic/stable paraplegia) Psychiatric: Normal Affect, Normal Mood Skin Exam: Warm, Dry, Intact, Normal Color, No Rash Course - Vital Signs Last Recorded V/S: Last Vital Signs Temp 37.4 C 04/30/18 16:38 Pulse 72 04/30/18 16:38 Resp 22 H 04/30/18 16:38 BP 157/93 H 04/30/18 16:38 Pulse Ox 97 04/30/18 16:38 - Orders/Labs/Meds Orders: Active Orders 24 hr Category Date Time Status CULTURE URINE [RM] Stat Lab 04/30/18 16:47 Received Labs: Laboratory Tests 04/30/18 Range/Units 16:47 Urine Color Yellow (YELLOW) Urine Appearance Cloudy (CLEAR) Urine pH 7.5 (5.0-9.0) Ur Specific [place] 1.015 (1.005-1.030) Urine Protein Negative (NEGATIVE) Urine Glucose (UA) Negative (NEGATIVE) Urine Ketones Negative (NEGATIVE) Urine Occult Blood Negative (NEGATIVE) Urine Nitrite Positive H (NEGATIVE) Urine Bilirubin Negative (NEGATIVE) Urine Urobilinogen 0.2 (0.2-1.0) mg/dL Ur Leukocyte Esterase Small H (NEGATIVE) Urine RBC 0-5 /HPF Urine WBC 50-75 H (0-5/HPF) /HPF Ur Epithelial Cells Occasional /HPF Urine Bacteria Many H (0-FEW/HPF) /HPF Meds: Medications Discontinued Medications Generic Name Dose Route Start Last Admin Trade Name Tenq PRN Reason Stop Dose Admin Ciprofloxacin 500 mg 04/30/18 17:15 Ciprofloxacin Hcl PO 04/30/18 17:16 ONETIME ONE Ceftriaxone Sodium 1 gm/ 0 gm 04/30/18 17:15 Lidocaine HCl 2.1 ml IM 04/30/18 17:16 ONETIME ONE Departure - Departure Time of Disposition: 17:22 Disposition: Home, Self-Care 01 Condition: Good Clinical Impression: Neurogenic bladder, Paraplegia Catheter-associated urinary tract infection Qualifiers: Indwelling urinary catheter type: unspecified Encounter type: initial encounter Qualified Code(s): T83.511A - Infection and inflammatory reaction due to indwelling urethral catheter, initial encounter; N39.0 - Urinary tract infection, site not specified - Discharge Information Instructions: Urinary Tract Infection, Adult, [id number] Forms: ED Department Discharge Additional Instructions: Rx: Cipro 500mg Follow up in clinic for urine recheck in 7 to 10 days. Return to ER if not improving as expected. - My Orders Last 24 Hours: My Active Orders 04/30/18 16:47 CULTURE URINE [RM] Stat - Assessment/Plan Last 24 Hours: My Active Orders 04/30/18 16:47 CULTURE URINE [RM] Stat
[2018-04-30 16:42] VITALS: BP 157/93
[2018-04-30] MEDS ORDERED: cefTRIAXone 1 GM, Lidocaine 1% 2.1 ML IM ONE ×2 (17:15)
[2018-04-30] MEDS ORDERED: Ciprofloxacin 500 MG Tab PO ONE (17:15)
== END 2018-04-30 17:50 | disposition home or self-care (01) ==
LOC: DL.ED 15:59
DX: T83.511A Infection and inflammatory reaction due to indwelling urethral catheter, initial encounter (principal); N39.0 Urinary tract infection, site not specified; G82.20 Paraplegia, unspecified; N31.9 Neuromuscular dysfunction of bladder, unspecified
CPT/HCPCS: 81001; 87086; 87088; 87186; 96372; 99284; A9270; J0696; 99283

== ENCOUNTER 2018-07-29 02:06 | Emergency (ER) | payer MEDICAID, OTHER ==
[2018-07-29 02:16] VITALS: BP 121/60
--- NOTE | 2018-07-29 02:31 | EDM.PDOC ---
ED HPI GENERAL MEDICAL PROBLEM - General Chief Complaint: Drug or Alcohol Abuse Stated Complaint: AMBULANCE-SUBSTANCE ABUSE Time Seen by Provider: 07/29/18 02:15 Source of Information: Reports: Patient, EMS History Limitations: Reports: No Limitations - History of Present Illness INITIAL COMMENTS - FREE TEXT/NARRATIVE: ED via [facility] with c/o palpations and anxiety . Admits meth use around 6pm tonight and then viagra at 930. Feeling shaky. No other c/o - Related Data Allergies Allergy/AdvReac Type Severity Reaction Status Date / Time No Known Allergies Allergy Verified 07/29/18 02:11 Home Meds: Home Meds Multivitamin [Multi-Vitamin Daily] 1 each PO DAILY 10/20/13 [History] PARoxetine [Paxil] 20 mg PO DAILY 10/20/13 [History] Sildenafil [Viagra] 100 mg PO WEEKLY PRN 12/08/17 [History] Acetaminophen [Tylenol] 650 mg PO Q4H PRN tablet 12/14/17 [Rx] Bisacodyl [Dulcolax] 10 mg RECTAL DAILY PRN supp 12/14/17 [Rx] Past Medical History HEENT History: Reports: None Cardiovascular History: Reports: None Other Cardiovascular History: states heart rate can vary Respiratory History: Reports: Intubation, Previous Gastrointestinal History: Reports: GERD Other Gastrointestinal History: previous feeding tube, no longer present Genitourinary History: Reports: UTI, Recurrent Other Genitourinary History: self cath several times a day as needed. Other Musculoskeletal History: fractured neck at C6-C7 Neurological History: Reports: Brain Injury, Other (See Below) Other Neuro History: Head injury with accident, paraplegia Psychiatric History: Reports: Anxiety, Depression Endocrine/Metabolic History: Reports: None Hematologic History: Reports: None Immunologic History: Reports: None Oncologic (Cancer) History: Reports: None Dermatologic History: Reports: None - Infectious Disease History Infectious Disease History: Reports: Chicken Pox - Past Surgical History Head Surgeries/Procedures: Reports: None HEENT Surgical History: Reports: Other (See Below) Other HEENT Surgeries/Procedures: history of trach after accident Cardiovascular Surgical History: Reports: None Respiratory Surgical History: Reports: Other (See Below) Other Respiratory Surgeries/Procedures: hx of tracheostomy from accident, healed GI Surgical History: Reports: None Male Surgical History: Reports: None Neurological Surgical History: Reports: Other (See Below) Other Neurological Surgeries/Procedures: spinal repair/stabilzation post- accident Musculoskeletal Surgical History: Reports: Other (See Below) Other Musculoskeletal Surgeries/Procedures:: neck repair post accident, paraplegia Social & Family History - Family History Family Medical History: Noncontributory - Tobacco Use Smoking Status *Q: Light Tobacco Smoker Years of Tobacco use: 18 Packs/Tins Daily: 0.2 - Caffeine Use Caffeine Use: Reports: None - Recreational Drug Use Recreational Drug Use: Yes Drug Use in Last 12 Months: Yes Recreational Drug Type: Reports: Methamphetamine Recreational Drug Use Frequency: Weekly - Living Situation & Occupation Living situation: Reports: with Significant Other Occupation: Disabled ED ROS GENERAL - Review of Systems Review Of Systems: ROS reveals no pertinent complaints other than HPI. ED EXAM, GENERAL - Physical Exam Exam: See Below Exam Limited By: No Limitations General Appearance: Alert, No Apparent Distress Eye Exam: Bilateral Eye: EOMI Ears: Normal External Exam, Normal TMs Nose: Normal Inspection Throat/Mouth: Normal Inspection, Normal Voice Head: Atraumatic, Normocephalic Neck: Normal Inspection, Full Range of Motion Respiratory/Chest: No Respiratory Distress, Lungs Clear, Normal Breath Sounds Cardiovascular: Normal Peripheral Pulses, Regular Rate, Rhythm GI/Abdominal: Normal Bowel Sounds Extremities: Other (paraplegic) Neurological: Alert, Oriented Psychiatric: Normal Affect, Normal Mood Skin Exam: Warm, Dry, Intact, Normal Color Course - Vital Signs Last Recorded V/S: Last Vital Signs Temp 97.9 F 07/29/18 02:13 Pulse 85 07/29/18 02:13 Resp 11 L 07/29/18 02:13 BP 121/60 07/29/18 02:13 Pulse Ox 99 07/29/18 02:13 - Orders/Labs/Meds Orders: Active Orders 24 hr Category Date Time Status EKG Documentation Completion [RC] URGENT Care 07/29/18 02:28 Active Labs: Laboratory Tests 07/29/18 07/29/18 07/29/18 Range/Units 02:40 02:40 03:20 WBC 7.5 (5.0-10.0) 10^3/uL RBC 4.19 L (4.6-6.2) 10^6/uL Hgb 12.6 L (14.0-18.0) g/dL Hct 38.9 L (40.0-54.0) % MCV 92.8 (80-100) fL MCH 30.1 (27.0-34.0) pg MCHC 32.4 L (33.0-35.0) g/dL Plt Count 274 (150-450) 10^3/uL Neut % (Auto) 61.1 (42.2-75.2) % Lymph % (Auto) 28.9 (20.5-50.1) % [place] % (Auto) 7.6 (2-8) % Eos % (Auto) 2.1 (1.0-3.0) % Baso % (Auto) 0.3 (0.0-1.0) % Sodium 137 (135-145) mmol/L Potassium 4.0 (3.6-5.0) mmol/L Chloride 104 (101-111) mmol/L Carbon Dioxide 27.0 (21.0-31.0) mmol/L Anion Gap 10.0 BUN 19 H (7-18) mg/dL Creatinine 0.6 (0.6-1.3) mg/dL Est Cr Clr Drug Dosing 152.49 mL/min Estimated GFR (MDRD) > 60 BUN/Creatinine Ratio 31.66 Glucose 97 (74-105) mg/dL Calcium 8.5 (8.4-10.2) mg/dl Total Bilirubin 0.3 (0.2-1.0) mg/dL AST 29 (10-42) IU/L ALT 38 (10-60) IU/L Alkaline Phosphatase 57 (42-121) IU/L Total Protein 6.7 (6.7-8.2) g/dl Albumin 3.5 (3.2-5.5) g/dl Globulin 3.2 Albumin/Globulin Ratio 1.09 Urine Color Yellow (YELLOW) Urine Appearance Slightly cloudy (CLEAR) Urine pH 6.5 (5.0-9.0) Ur Specific [place] >= 1.030 (1.005-1.030) Urine Protein Negative (NEGATIVE) Urine Glucose (UA) Negative (NEGATIVE) Urine Ketones Negative (NEGATIVE) Urine Occult Blood Negative (NEGATIVE) Urine Nitrite Negative (NEGATIVE) Urine Bilirubin Negative (NEGATIVE) Urine Urobilinogen 1.0 (0.2-1.0) mg/dL Ur Leukocyte Esterase Trace H (NEGATIVE) Urine RBC 0-5 /HPF Urine WBC 30-40 H (0-5/HPF) /HPF Ur Epithelial Cells Moderate H /HPF Urine Bacteria Many H (0-FEW/HPF) /HPF Urine Mucus Many H /LPF Urine Trichomonas Present H (0/HPF) /HPF Ethyl Alcohol < 5 mg/dL - Re-Assessments/Exams Free Text/Narrative Re-Assessment/Exam: On arrival patient reporting anxiety resolving and feeling improved. Requesting to leave on arrival, agree to be evaluated Departure - Departure Time of Disposition: 03:28 Disposition: Home, Self-Care 01 Condition: Good Clinical Impression: Methamphetamine abuse - Discharge Information Instructions: Stimulant Use Disorder-Amphetamines Referrals: PCP,None [Primary Care Provider] - Forms: ED Department Discharge Additional Instructions: Stop meth use increase fluids today follow up as needed - My Orders Last 24 Hours: My Active Orders 07/29/18 02:28 EKG Documentation Completion [RC] URGENT - Assessment/Plan Last 24 Hours: My Active Orders 07/29/18 02:28 EKG Documentation Completion [RC] URGENT
[2018-07-29 03:06] LABS: CHLORIDE,CL 104 mmol/L (101-111); SODIUM,NA 137 mmol/L (135-145)
== END 2018-07-29 03:41 | disposition home or self-care (01) ==
LOC: DL.ED 02:06
DX: F15.10 Other stimulant abuse, uncomplicated (principal); F17.210 Nicotine dependence, cigarettes, uncomplicated; F41.9 Anxiety disorder, unspecified; F32.9 Major depressive disorder, single episode, unspecified; Z79.899 Other long term (current) drug therapy
CPT/HCPCS: 36415; 80053; 81001; 85025; 93005; 99285; G0480

== ENCOUNTER 2018-12-09 02:54 | Emergency (ER) | payer MEDICAID, OTHER ==
[2018-12-09 03:08] VITALS: BP 108/72
--- NOTE | 2018-12-09 03:21 | EDM.PDOC ---
ED HPI GENERAL MEDICAL PROBLEM - General Chief Complaint: Flank Pain Stated Complaint: BACK ACHE Time Seen by Provider: 12/09/18 03:21 Source of Information: Reports: Patient, RN, RN Notes Reviewed History Limitations: Reports: No Limitations - History of Present Illness INITIAL COMMENTS - FREE TEXT/NARRATIVE: Pt to ER with c/o sudden onset of bilateral flank pain. He states the pain began about an hour prior to coming to the ER. Pt is paraplegic and self caths. He states he became nauseated and vomited a small amount. He denies fever or chills. Patient and significant other state he took 1 full viagara, 2 1/2 pills of viagara, and another 1/4 pill of viagara. He took a total of 2 1/4 tablets of viagara today, patient states "I took way more than I should have". Onset: Today, Sudden Duration: Intermittent Location: Reports: Back Quality: Reports: Ache, Burning Bilateral Flank Pain Score (Numeric/FACES): 7 - Related Data Allergies Allergy/AdvReac Type Severity Reaction Status Date / Time No Known Allergies Allergy Verified 12/09/18 03:08 Home Meds: Home Meds Multivitamin [Multi-Vitamin Daily] 1 each PO DAILY 10/20/13 [History] Sildenafil [Viagra] 100 mg PO WEEKLY PRN 12/08/17 [History] Acetaminophen [Tylenol] 650 mg PO Q4H PRN tablet 12/14/17 [Rx] Bisacodyl [Dulcolax] 10 mg RECTAL DAILY PRN #10 supp 09/07/18 [Rx] Lactulose [Enulose] 10 gm PO BID PRN #250 ml 09/22/18 [Rx] PARoxetine [Paxil] 10 mg PO DAILY #30 tab 09/22/18 [Rx] Polyethylene Glycol 3350 [Miralax] 17 gm PO DAILY #30 powd.pack 09/22/18 [Rx] Sennosides/Docusate Sodium [Sennosides-Docusate Sodium] 1 each PO BID #60 tablet 09/22/18 [Rx] Past Medical History HEENT History: Reports: None Cardiovascular History: Reports: None Other Cardiovascular History: states heart rate can vary Respiratory History: Reports: Intubation, Previous Gastrointestinal History: Reports: GERD Other Gastrointestinal History: previous feeding tube, no longer present Genitourinary History: Reports: UTI, Recurrent Other Genitourinary History: self cath several times a day as needed. Musculoskeletal History: Reports: Neck Pain, Chronic Other Musculoskeletal History: fractured neck at C6-C7 Neurological History: Reports: Brain Injury, Other (See Below) Other Neuro History: Head injury with accident, paraplegia Psychiatric History: Reports: Anxiety, Depression Endocrine/Metabolic History: Reports: None Hematologic History: Reports: None Immunologic History: Reports: None Oncologic (Cancer) History: Reports: None Dermatologic History: Reports: None - Infectious Disease History Infectious Disease History: Reports: Chicken Pox - Past Surgical History Head Surgeries/Procedures: Reports: None HEENT Surgical History: Reports: Other (See Below) Other HEENT Surgeries/Procedures: history of trach after accident Cardiovascular Surgical History: Reports: None Respiratory Surgical History: Reports: Other (See Below) Other Respiratory Surgeries/Procedures: hx of tracheostomy from accident, healed GI Surgical History: Reports: None Male Surgical History: Reports: None Neurological Surgical History: Reports: Other (See Below) Other Neurological Surgeries/Procedures: spinal repair/stabilzation post- accident Musculoskeletal Surgical History: Reports: Other (See Below) Other Musculoskeletal Surgeries/Procedures:: neck repair post accident, paraplegia Social & Family History - Family History Family Medical History: Noncontributory - Tobacco Use Smoking Status *Q: Current Every Day Smoker Years of Tobacco use: 5 Packs/Tins Daily: 10 - Caffeine Use Caffeine Use: Reports: Coffee, Soda, Tea - Recreational Drug Use Recreational Drug Use: No - Living Situation & Occupation Living situation: Reports: with Significant Other Occupation: Disabled ED ROS GENERAL - Review of Systems Review Of Systems: ROS reveals no pertinent complaints other than HPI. ED EXAM, RENAL/ - Physical Exam Exam: See Below Exam Limited By: No Limitations General Appearance: Alert, WD/WN, No Apparent Distress Eye Exam: Bilateral Eye: EOMI, Normal Inspection Ears: Normal External Exam, Hearing Grossly Normal Nose: Normal Inspection Throat/Mouth: Normal Inspection, Normal Voice, No Airway Compromise Head: Atraumatic, Normocephalic Neck: Normal Inspection, Supple, Non-Tender, Full Range of Motion Respiratory/Chest: No Respiratory Distress, Lungs Clear, Normal Breath Sounds, No Accessory Muscle Use, Chest Non-Tender Cardiovascular: Normal Peripheral Pulses, Regular Rate, Rhythm, No Edema, No Gallop, No JVD, No Murmur, No Rub GI/Abdominal: Normal Bowel Sounds, Soft, Non-Tender (Male) Exam: Deferred, Other (patient self cathed) Rectal (Males) Exam: Deferred Back Exam: Normal Inspection, Full Range of Motion Extremities: Normal Inspection, Limited Range of Motion Neurological: Alert, Oriented Psychiatric: Anxious Skin Exam: Warm, Dry, Intact, Normal Color, No Rash Lymphatic: No Adenopathy Course - Vital Signs Last Recorded V/S: Last Vital Signs Temp 95.5 F 12/09/18 02:57 Pulse 63 12/09/18 02:57 Resp 18 12/09/18 02:57 BP 108/72 12/09/18 02:57 Pulse Ox 100 12/09/18 02:57 - Orders/Labs/Meds Orders: Active Orders 24 hr Category Date Time Status CULTURE URINE [RM] Stat Lab 12/09/18 03:33 Received cephALEXin [Keflex] Med 12/09/18 04:10 Once 500 mg PO ONETIME ONE Medication Orders Cephalexin (Keflex) 500 mg PO ONETIME ONE Stop: 12/09/18 04:11 Labs: Laboratory Tests 12/09/18 12/09/18 12/09/18 Range/Units 03:33 03:36 03:36 WBC 5.2 (5.0-10.0) 10^3/uL RBC 4.56 L (4.6-6.2) 10^6/uL Hgb 13.8 L (14.0-18.0) g/dL Hct 42.1 (40.0-54.0) % MCV 92.3 (80-100) fL MCH 30.3 (27.0-34.0) pg MCHC 32.8 L (33.0-35.0) g/dL Plt Count 271 (150-450) 10^3/uL Neut % (Auto) 48.0 (42.2-75.2) % Lymph % (Auto) 35.9 (20.5-50.1) % [place] % (Auto) 11.0 H (2-8) % Eos % (Auto) 4.7 H (1.0-3.0) % Baso % (Auto) 0.4 (0.0-1.0) % Sodium 133 L (135-145) mmol/L Potassium 4.1 (3.6-5.0) mmol/L Chloride 96 L (101-111) mmol/L Carbon Dioxide 28.0 (21.0-31.0) mmol/L Anion Gap 13.1 BUN 22 H (7-18) mg/dL Creatinine 0.6 (0.6-1.3) mg/dL Est Cr Clr Drug Dosing 148.16 mL/min Estimated GFR (MDRD) > 60 BUN/Creatinine Ratio 36.66 Glucose 119 H (74-105) mg/dL Calcium 8.7 (8.4-10.2) mg/dl Total Bilirubin 0.5 (0.2-1.0) mg/dL AST 36 (10-42) IU/L ALT 47 (10-60) IU/L Alkaline Phosphatase 71 (42-121) IU/L Total Protein 6.7 (6.7-8.2) g/dl Albumin 3.6 (3.2-5.5) g/dl Globulin 3.1 Albumin/Globulin Ratio 1.16 Urine Color Dark yellow (YELLOW) Urine Appearance Turbid (CLEAR) Urine pH 6.5 (5.0-9.0) Ur Specific [place] >= 1.030 (1.005-1.030) Urine Protein Trace H (NEGATIVE) Urine Glucose (UA) Negative (NEGATIVE) Urine Ketones Negative (NEGATIVE) Urine Occult Blood Negative (NEGATIVE) Urine Nitrite Positive H (NEGATIVE) Urine Bilirubin Small H (NEGATIVE) Urine Urobilinogen 4.0 H (0.2-1.0) mg/dL Ur Leukocyte Esterase Trace H (NEGATIVE) Urine RBC 0-5 /HPF Urine WBC 20-30 H (0-5/HPF) /HPF Ur Epithelial Cells Rare /HPF Amorphous Sediment Moderate (0/HPF) /HPF Urine Bacteria Many H (0-FEW/HPF) /HPF Urine Mucus Few H /LPF Meds: Medications Generic Name Dose Route Start Last Admin Trade Name Freq PRN Reason Stop Dose Admin Cephalexin 500 mg 12/09/18 04:10 Keflex PO 12/09/18 04:11 ONETIME ONE Departure - Departure Time of Disposition: 04:10 Disposition: Home, Self-Care 01 Condition: Fair Clinical Impression: UTI, Urinary tract infectious disease - Discharge Information *PRESCRIPTION DRUG MONITORING PROGRAM REVIEWED*: No *COPY OF PRESCRIPTION DRUG MONITORING REPORT IN PATIENT NATALIE: No Instructions: Antibiotic Medicine, Adult, [id number], Catheter-Associated Urinary Tract Infection FAQs - ALEXANDRA, Urinary Tract Infection, Adult, Easy-to- Read Forms: ED Department Discharge Additional Instructions: RX: Cephalexin 500mg orally four times daily for 10 days Drink plenty of water Follow up with your primary care facility May use Tylenol and/or Ibuprofen as directed for pain - My Orders Last 24 Hours: My Active Orders 12/09/18 03:33 CULTURE URINE [RM] Stat 12/09/18 04:10 cephALEXin [Keflex] 500 mg PO ONETIME ONE - Assessment/Plan Last 24 Hours: My Active Orders 12/09/18 03:33 CULTURE URINE [RM] Stat 12/09/18 04:10 cephALEXin [Keflex] 500 mg PO ONETIME ONE
[2018-12-09 04:00] LABS: ANION GAP 13.1; CHLORIDE,CL 96 mmol/L (101-111); SODIUM,NA 133 mmol/L (135-145)
[2018-12-09] MEDS ORDERED: Cephalexin 500 MG Cap PO ONE (04:10)
== END 2018-12-09 04:19 | disposition home or self-care (01) ==
LOC: DL.ED 02:54
DX: N39.0 Urinary tract infection, site not specified (principal); F17.210 Nicotine dependence, cigarettes, uncomplicated
CPT/HCPCS: 36415; 80053; 81001; 85025; 87086; 87088; 87186; 99284; A9270

== ENCOUNTER 2018-12-13 02:42 | Emergency (ER) | payer MEDICAID, OTHER ==
[2018-12-13 02:48] VITALS: BP 104/72
[2018-12-13] MEDS ORDERED: LORazepam 0.5 MG Tab PO ONE (03:39)
--- NOTE | 2018-12-13 04:29 | EDM.PDOC ---
ED HPI GENERAL MEDICAL PROBLEM - General Chief Complaint: Abdominal Pain Stated Complaint: STOMACH PAIN [id number] Time Seen by Provider: 12/13/18 02:45 Source of Information: Reports: Patient History Limitations: Reports: No Limitations - History of Present Illness INITIAL COMMENTS - FREE TEXT/NARRATIVE: C/o generalized abdominal pain, No BM for 3 days, has taken usual home meds for constipation and Mag citrate 1.5 hours ago but no relief yet. No fever, chills or vomiting. Abdomen Pain Score (Numeric/FACES): 7 - Related Data Allergies Allergy/AdvReac Type Severity Reaction Status Date / Time No Known Allergies Allergy Verified 12/13/18 02:48 Home Meds: Home Meds Multivitamin [Multi-Vitamin Daily] 1 each PO DAILY 10/20/13 [History] Sildenafil [Viagra] 100 mg PO WEEKLY PRN 12/08/17 [History] Acetaminophen [Tylenol] 650 mg PO Q4H PRN tablet 12/14/17 [Rx] Bisacodyl [Dulcolax] 10 mg RECTAL DAILY PRN #10 supp 09/07/18 [Rx] Lactulose [Enulose] 10 gm PO BID PRN #250 ml 09/22/18 [Rx] PARoxetine [Paxil] 10 mg PO DAILY #30 tab 09/22/18 [Rx] Polyethylene Glycol 3350 [Miralax] 17 gm PO DAILY #30 powd.pack 09/22/18 [Rx] Sennosides/Docusate Sodium [Sennosides-Docusate Sodium] 1 each PO BID #60 tablet 09/22/18 [Rx] Past Medical History HEENT History: Reports: None Cardiovascular History: Reports: None Other Cardiovascular History: states heart rate can vary Respiratory History: Reports: Intubation, Previous Gastrointestinal History: Reports: Chronic Constipation, GERD Other Gastrointestinal History: previous feeding tube, no longer present Genitourinary History: Reports: UTI, Recurrent Other Genitourinary History: self cath several times a day as needed. Musculoskeletal History: Reports: Neck Pain, Chronic Other Musculoskeletal History: fractured neck at C6-C7 Neurological History: Reports: Brain Injury, Other (See Below) Other Neuro History: Head injury with accident, paraplegia Psychiatric History: Reports: Anxiety, Depression Endocrine/Metabolic History: Reports: None Hematologic History: Reports: None Immunologic History: Reports: None Oncologic (Cancer) History: Reports: None Dermatologic History: Reports: None - Infectious Disease History Infectious Disease History: Reports: Chicken Pox - Past Surgical History Head Surgeries/Procedures: Reports: None HEENT Surgical History: Reports: Other (See Below) Other HEENT Surgeries/Procedures: history of trach after accident Cardiovascular Surgical History: Reports: None Respiratory Surgical History: Reports: Other (See Below) Other Respiratory Surgeries/Procedures: hx of tracheostomy from accident, healed GI Surgical History: Reports: None Male Surgical History: Reports: None Neurological Surgical History: Reports: Other (See Below) Other Neurological Surgeries/Procedures: spinal repair/stabilzation post- accident Musculoskeletal Surgical History: Reports: Other (See Below) Other Musculoskeletal Surgeries/Procedures:: neck repair post accident, paraplegia Social & Family History - Family History Family Medical History: Noncontributory - Tobacco Use Smoking Status *Q: Current Every Day Smoker Years of Tobacco use: 10 Packs/Tins Daily: 0.1 Second Hand Smoke Exposure: Yes - Caffeine Use Caffeine Use: Reports: Coffee, Soda, Tea - Recreational Drug Use Recreational Drug Use: No - Living Situation & Occupation Living situation: Reports: with Significant Other Occupation: Disabled ED ROS GENERAL - Review of Systems Review Of Systems: ROS reveals no pertinent complaints other than HPI. ED EXAM, GI/ABD - Physical Exam Exam: See Below Exam Limited By: No Limitations General Appearance: Alert, Mild Distress Eyes: Bilateral: EOMI Ears: Normal External Exam, Hearing Grossly Normal Throat/Mouth: Normal Voice Head: Atraumatic, Normocephalic Neck: Normal Inspection Respiratory/Chest: No Respiratory Distress, Lungs Clear Cardiovascular: Regular Rate, Rhythm GI/Abdominal Exam: Soft, Abnormal Bowel Sounds (hyperactive). No: Distended, Guarding Extremities: No: Normal Range of Motion (para) Neurological: Alert, Oriented, Normal Cognition Psychiatric: Anxious Skin Exam: Warm, Dry, Normal Color Course - Vital Signs Last Recorded V/S: Last Vital Signs Temp 98.1 F 12/13/18 02:45 Pulse 87 12/13/18 02:45 Resp 18 12/13/18 02:45 BP 104/72 12/13/18 02:45 Pulse Ox 100 12/13/18 02:45 - Orders/Labs/Meds Orders: Active Orders 24 hr Category Date Time Status Enema [RC] ASDIRECTED Care 12/13/18 03:12 Ordered Abdomen 1V Flat [CR] Urgent Exams 12/13/18 02:58 Ordered Meds: Medications Discontinued Medications Generic Name Dose Route Start Last Admin Trade Name Sho PRN Reason Stop Dose Admin Lorazepam 0.5 mg 12/13/18 03:39 12/13/18 03:51 Ativan PO 12/13/18 03:40 0.5 mg ONETIME ONE Administration - Re-Assessments/Exams Free Text/Narrative Re-Assessment/Exam: Relef of symptoms with SSE . Departure - Departure Time of Disposition: 04:28 Disposition: Home, Self-Care 01 Condition: Good Clinical Impression: Constipation - Discharge Information *PRESCRIPTION DRUG MONITORING PROGRAM REVIEWED*: Not Applicable *COPY OF PRESCRIPTION DRUG MONITORING REPORT IN PATIENT NATALIE: Not Applicable Instructions: Constipation, Adult Forms: ED Department Discharge Additional Instructions: increase fluids fruit and fiber in diet continue home medications light diet today clinic follow up as needed - My Orders Last 24 Hours: My Active Orders 12/13/18 02:58 Abdomen 1V Flat [CR] Urgent 12/13/18 03:12 Enema [RC] ASDIRECTED - Assessment/Plan Last 24 Hours: My Active Orders 12/13/18 02:58 Abdomen 1V Flat [CR] Urgent 12/13/18 03:12 Enema [RC] ASDIRECTED
== END 2018-12-13 04:46 | disposition home or self-care (01) ==
LOC: DL.ED 02:42
DX: K59.00 Constipation, unspecified (principal); F17.210 Nicotine dependence, cigarettes, uncomplicated; F41.9 Anxiety disorder, unspecified; F32.9 Major depressive disorder, single episode, unspecified; Z79.899 Other long term (current) drug therapy; Z79.82 Long term (current) use of aspirin
CPT/HCPCS: 74018; 99284; A9270-GY

== ENCOUNTER 2019-01-06 07:50 | Emergency (ER) | payer MEDICAID ==
[2019-01-06] MEDS ORDERED: Morphine 4 MG/ML Syringe IVPUSH ONE (08:09)
[2019-01-06] MEDS ORDERED: Sodium Chloride 0.9% 10 ML Syringe FLUSH PRN (08:09)
[2019-01-06] MEDS ORDERED: Ondansetron 4 MG/2 ML SDV IV ONE (08:10)
[2019-01-06 08:51] LABS: ANION GAP 13.4; CHLORIDE,CL 98 mmol/L (101-111); SODIUM,NA 133 mmol/L (135-145)
[2019-01-06] MEDS ORDERED: Iopamidol 612 MG/ML 75 ML Bottle IVPUSH ONE (09:20)
[2019-01-06 09:26] VITALS: BP 134/87
--- NOTE | 2019-01-06 11:03 | CT ---
CLINICAL HISTORY: 38-year-old 152 pound male smoker with abdominal pain. Etiology? CT scan 20 September 2018 revealed "constipation and urinary bladder wall thickening". SCAN TECHNIQUE: Volume acquisition of data from the abdomen and pelvis obtained without oral contrast but during the intravenous administration 75 cc nonionic Isovue contrast (3 cc/s via injector) while the patient was lying supine on the Siemens multislice scanner [facility]. All data archived PACS system for storage, reformatting axial/sagittal/coronal planes and study. INTERPRETATION: 1. Gastric wall appears thickened consistent with "smoker". Major pancreatic duct measures 3 mm diameter (normal up to 3.5 mm) and normal pancreatic tissues without mass, calcifications, edema, peripancreatic "dirty" fat (inflammation) or pseudocyst. Serum amylase? Lipase? 2. Gallbladder, liver, spleen, adrenal glands and kidneys unremarkable, i.e., negative. No renal cortical mass lesion, nephrolithiasis or obstructive uropathy. Symmetrically distended normal appearing urinary bladder. Prostate gland unremarkable. 3. No abdominal or pelvic mass lesion, mesenteric/retroperitoneal lymphadenopathy, inflammatory fat, mechanical bowel obstruction, ascites or free intraperitoneal air. Normal appendix RLQ. No ventral wall or inguinal hernias. 4. Normal caliber aortoiliac vessels. Early marginal spondylosis mid lumbar spine. Lung bases clear. CONCLUSION: Gastritis. Otherwise Negative exam.
--- NOTE | 2019-01-09 13:48 | ER ---
SUBJECTIVE: The patient is a 38-year-old male who comes in for abdominal pain, nonspecific, radiates to his back. He denies any trauma. Denies any fever or chills. He is quite nauseated and no vomiting. No diarrhea. No melena or hematochezia. He does self-catheterize himself because of paraplegia because of a low neck injury years ago. His is here with him. He denies any recent trauma. No recent bowel or bladder changes. His abdominal pain began last night. PAST MEDICAL HISTORY: Significant for cervical spine injury with resultant paraplegia. He at one point, had a trach that is now removed. 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 He has spinal stabilization. He has anxiety and depression. CURRENT MEDICATIONS: Include: 1. Viagra 100 mg p.o. weekly p.r.n. 2. Tylenol 650 mg p.o. q.4 hours p.r.n. ALLERGIES: He has no known allergies. SOCIAL HISTORY: He is , has 4 children. He does use tobacco. No alcohol or substance abuse per his history. REVIEW OF SYSTEMS: No chest pain, back pain. No headache, syncope, near syncope, HEENT changes of neck pain or dyspnea. Gastrointestinal: No vomiting. No diarrhea. No melena or hematochezia. He does have nausea, however. He does have abdominal pain radiates to his back. It is nonspecific and it hay. He had a normal BM 2 days ago. Again, no trauma or no other in acute issues. OBJECTIVE: Vital Signs: Stable. He is currently afebrile. He is somewhat hypertensive with his pain. Blood pressure initially 174/109 respiratory rate was 20, his oxygen sats are 100% on room air. General: He is pleasant and cooperative. He appears in some discomfort. HEENT: Normocephalic, atraumatic. He is not jaundiced. He is a fairly good historian. Mucous membranes moist. Neck: Unremarkable. Chest: Clear, nontender. Cardiovascular: RRR. Abdomen: Generally tender, only mild to exam. It appears more subjective tenderness to the patient. No specific tenderness. It is atraumatic. He has good bowel sounds. Back: No CVAT, atraumatic. Skin : Warm and dry. It is of normal color. LABORATORY DATA: White count is normal at 6.7. He has no anemia. A differential unremarkable. His electrolytes are quite unremarkable. BUN and creatinine are normal. Lactic acid is normal at 0.8. Total bili and LFTs are all normal, amylase is normal. His urinalysis is yellow and clear, trace leukocyte esterase, negative nitrites. Normal amount of white blood cells, rare bacteria. Urine is quite unremarkable otherwise. Urine drug screen is positive for oxycodone, positive for methamphetamine. Negative for marijuana. Because of patient's need to self-catheterize and a positive drug screen and his abdominal pain and the blood all being not remarkable, an abdominal pelvic CAT scan was ordered with contrast, please see report, it was negative exam without any specific findings. EMERGENCY ROOM COURSE: The patient was given an IV, he was given morphine and Zofran. He felt improved, he was given a second dose of morphine later in the ER course, which he tolerated well. When all of his workup was available, I did thoroughly discuss all of this with the patient as well with his attendant including blood work and CAT scan. Discharged the patient to home in stable and markedly improved condition. ASSESSMENT: 1. Abdominal pain, nonspecific, improved. CAT scan and blood work, not remarkable for acute findings. 2. Nausea, resolved. PLAN: Discharge to home in stable condition with his . Advice clear fluids. Very slowly advance diet. Use Tylenol, ibuprofen as baseline medicines. Prescription for Zofran for nausea and/or any vomiting that might develop and tramadol for any pain not covered by Tylenol or ibuprofen. Advice the patient's blood was sent for culture will be available early next week at which time, he can follow up with his PCP in clinic as needed. Return to emergency room for any emergent issues. [facility] /[id number]
== END 2019-01-06 11:39 | disposition home or self-care (01) ==
LOC: DL.ED 07:50
DX: R10.9 Unspecified abdominal pain (principal); R11.0 Nausea
CPT/HCPCS: 36415; 74177; 80053; 80305; 81001; 82150; 83605; 85025; 87040; 96374; 96375; 99284; J2270; J2405; Q9967

== ENCOUNTER 2019-03-15 13:57 | Emergency (ER) | payer MEDICAID ==
[2019-03-15 14:03] VITALS: BP 112/62
[2019-03-15] MEDS ORDERED: Sodium Chloride 0.9% 1,000 ML IV ONE (14:16)
[2019-03-15] MEDS ORDERED: Ketorolac 30 MG/ML SDV IVPUSH ONE (14:16)
--- NOTE | 2019-03-15 14:23 | EDM.PDOC ---
ED HPI GENERAL MEDICAL PROBLEM - General Chief Complaint: Respiratory Problem Stated Complaint: TROUBLES BREATHING Time Seen by Provider: 03/15/19 14:10 Source of Information: Reports: Patient History Limitations: Reports: No Limitations - History of Present Illness INITIAL COMMENTS - FREE TEXT/NARRATIVE: This 38 yo male patient reports to the ED with abdominal pain causing him to have difficulties breathing. The patient reports his symptoms started this morning and have been getting worse throughout the day. The patient reports he has been having bowel movements, but they have been hard. The patient denies any drug or alcohol use. Onset: Today Duration: Constant, Getting Worse Location: Reports: Abdomen (left upper quadrant) Quality: Reports: Other Severity: Mild Improves with: Reports: None Worsens with: Reports: None Context: Reports: Other Associated Symptoms: Reports: No Other Symptoms Left Lower Abdomen Pain Score (Numeric/FACES): 6 - Related Data Allergies Allergy/AdvReac Type Severity Reaction Status Date / Time No Known Allergies Allergy Verified 03/15/19 14:03 Home Meds: Home Meds . [No Known Home Meds] 03/15/19 [History] Past Medical History HEENT History: Reports: None Cardiovascular History: Reports: None Other Cardiovascular History: states heart rate can vary Respiratory History: Reports: Intubation, Previous Gastrointestinal History: Reports: Chronic Constipation, GERD Other Gastrointestinal History: previous feeding tube, no longer present Genitourinary History: Reports: UTI, Recurrent Other Genitourinary History: self cath several times a day as needed. Musculoskeletal History: Reports: Neck Pain, Chronic Other Musculoskeletal History: fractured neck at C6-C7 Neurological History: Reports: Brain Injury, Other (See Below) Other Neuro History: Head injury with accident, paraplegia Psychiatric History: Reports: Anxiety, Depression Endocrine/Metabolic History: Reports: None Hematologic History: Reports: None Immunologic History: Reports: None Oncologic (Cancer) History: Reports: None Dermatologic History: Reports: None - Infectious Disease History Infectious Disease History: Reports: Chicken Pox - Past Surgical History Head Surgeries/Procedures: Reports: None HEENT Surgical History: Reports: Other (See Below) Other HEENT Surgeries/Procedures: history of trach after accident Cardiovascular Surgical History: Reports: None Respiratory Surgical History: Reports: Other (See Below) Other Respiratory Surgeries/Procedures: hx of tracheostomy from accident, healed GI Surgical History: Reports: None Male Surgical History: Reports: None Neurological Surgical History: Reports: Other (See Below) Other Neurological Surgeries/Procedures: spinal repair/stabilzation post- accident Musculoskeletal Surgical History: Reports: Other (See Below) Other Musculoskeletal Surgeries/Procedures:: neck repair post accident, paraplegia Social & Family History - Family History Family Medical History: Noncontributory - Tobacco Use Smoking Status *Q: Current Every Day Smoker Years of Tobacco use: 18 Packs/Tins Daily: 0.1 Second Hand Smoke Exposure: Yes - Caffeine Use Caffeine Use: Reports: Coffee, Soda, Tea - Recreational Drug Use Recreational Drug Use: No - Living Situation & Occupation Living situation: Reports: with Significant Other Occupation: Disabled ED ROS GENERAL - Review of Systems Review Of Systems: ROS reveals no pertinent complaints other than HPI. ED EXAM, GENERAL - Physical Exam Exam: See Below Exam Limited By: No Limitations General Appearance: Alert, WD/WN, Moderate Distress Eye Exam: Bilateral Eye: EOMI, Normal Inspection, PERRL Ears: Normal External Exam, Normal Canal, Hearing Grossly Normal, Normal TMs Nose: Normal Inspection, Normal Mucosa, No Blood Throat/Mouth: Normal Inspection, Normal Lips, Normal Teeth, Normal Gums, Normal Oropharynx, Normal Voice, No Airway Compromise Head: Atraumatic, Normocephalic Neck: Normal Inspection, Supple, Non-Tender, Full Range of Motion Respiratory/Chest: No Respiratory Distress, Lungs Clear, Normal Breath Sounds, No Accessory Muscle Use, Chest Non-Tender Cardiovascular: Normal Peripheral Pulses, Regular Rate, Rhythm, No Edema, No Gallop, No JVD, No Murmur, No Rub GI/Abdominal: Normal Bowel Sounds, Soft, Non-Tender, No Organomegaly, No Distention, No Abnormal Bruit, No Mass (Male) Exam: Deferred Rectal (Males) Exam: Deferred Back Exam: CVA Tenderness (L) Extremities: Normal Inspection, Normal Range of Motion, Non-Tender, No Pedal Edema, Normal Capillary Refill Neurological: Alert, Oriented, CN II-XII Intact, Normal Cognition, Normal Gait, Normal Reflexes, No Motor/Sensory Deficits Psychiatric: Normal Affect, Normal Mood Skin Exam: Warm, Dry, Intact, Normal Color, No Rash Lymphatic: No Adenopathy Course - Vital Signs Last Recorded V/S: Last Vital Signs Temp 36.1 C 03/15/19 14:00 Pulse 70 03/15/19 14:00 Resp 18 03/15/19 14:00 BP 112/62 03/15/19 14:00 Pulse Ox 100 03/15/19 14:00 - Orders/Labs/Meds Orders: Active Orders 24 hr Category Date Time Status CULTURE URINE [RM] Stat Lab 03/15/19 14:39 Received Labs: Laboratory Tests 03/15/19 03/15/19 03/15/19 Range/Units 14:23 14:23 14:39 WBC 5.6 (5.0-10.0) 10^3/uL RBC 4.37 L (4.6-6.2) 10^6/uL Hgb 13.1 L D (14.0-18.0) g/dL Hct 40.4 (40.0-54.0) % MCV 92.4 (80-100) fL MCH 30.0 (27.0-34.0) pg MCHC 32.4 L (33.0-35.0) g/dL Plt Count 297 (150-450) 10^3/uL Neut % (Auto) 49.7 (42.2-75.2) % Lymph % (Auto) 35.7 (20.5-50.1) % [place] % (Auto) 9.5 H (2-8) % Eos % (Auto) 4.6 H (1.0-3.0) % Baso % (Auto) 0.5 (0.0-1.0) % Sodium 134 L (135-145) mmol/L Potassium 3.9 (3.6-5.0) mmol/L Chloride 105 (101-111) mmol/L Carbon Dioxide 24.0 (21.0-31.0) mmol/L Anion Gap 8.9 BUN 12 (7-18) mg/dL Creatinine 0.5 L (0.6-1.3) mg/dL Est Cr Clr Drug Dosing 202.28 mL/min Estimated GFR (MDRD) > 60 BUN/Creatinine Ratio 24.00 Glucose 95 (74-105) mg/dL Calcium 8.3 L (8.4-10.2) mg/dl Total Bilirubin 0.3 (0.2-1.0) mg/dL AST 38 (10-42) IU/L ALT 48 (10-60) IU/L Alkaline Phosphatase 57 (42-121) IU/L Total Protein 6.2 L (6.7-8.2) g/dl Albumin 3.2 (3.2-5.5) g/dl Globulin 3.0 Albumin/Globulin Ratio 1.07 Urine Color Yellow (YELLOW) Urine Appearance Clear (CLEAR) Urine pH 6.0 (5.0-9.0) Ur Specific [place] 1.025 (1.005-1.030) Urine Protein Negative (NEGATIVE) Urine Glucose (UA) Negative (NEGATIVE) Urine Ketones Negative (NEGATIVE) Urine Occult Blood Negative (NEGATIVE) Urine Nitrite Negative (NEGATIVE) Urine Bilirubin Negative (NEGATIVE) Urine Urobilinogen 0.2 (0.2-1.0) mg/dL Ur Leukocyte Esterase Trace H (NEGATIVE) Urine RBC Not seen /HPF Urine WBC 0-5 (0-5/HPF) /HPF Ur Epithelial Cells Rare (NOT SEEN) /HPF Urine Bacteria Few (0-FEW/HPF) /HPF Urine Mucus Few H (NOT SEEN) /LPF Urine Opiates Screen (NEGATIVE) Ur Oxycodone Screen (NEGATIVE) Urine Methadone Screen (NEGATIVE) Ur Barbiturates Screen (NEGATIVE) U Tricyclic Antidepress (NEGATIVE) Ur Phencyclidine Scrn (NEGATIVE) Ur Amphetamine Screen (NEGATIVE) U Methamphetamines Scrn (NEGATIVE) Urine MDMA Screen (NEGATIVE) U Benzodiazepines Scrn (NEGATIVE) Urine Cocaine Screen (NEGATIVE) U Marijuana (THC) Screen (NEGATIVE) 03/15/19 Range/Units 14:39 WBC (5.0-10.0) 10^3/uL RBC (4.6-6.2) 10^6/uL Hgb (14.0-18.0) g/dL Hct (40.0-54.0) % MCV (80-100) fL MCH (27.0-34.0) pg MCHC (33.0-35.0) g/dL Plt Count (150-450) 10^3/uL Neut % (Auto) (42.2-75.2) % Lymph % (Auto) (20.5-50.1) % [place] % (Auto) (2-8) % Eos % (Auto) (1.0-3.0) % Baso % (Auto) (0.0-1.0) % Sodium (135-145) mmol/L Potassium (3.6-5.0) mmol/L Chloride (101-111) mmol/L Carbon Dioxide (21.0-31.0) mmol/L Anion Gap BUN (7-18) mg/dL Creatinine (0.6-1.3) mg/dL Est Cr Clr Drug Dosing mL/min Estimated GFR (MDRD) BUN/Creatinine Ratio Glucose (74-105) mg/dL Calcium (8.4-10.2) mg/dl Total Bilirubin (0.2-1.0) mg/dL AST (10-42) IU/L ALT (10-60) IU/L Alkaline Phosphatase (42-121) IU/L Total Protein (6.7-8.2) g/dl Albumin (3.2-5.5) g/dl Globulin Albumin/Globulin Ratio Urine Color (YELLOW) Urine Appearance (CLEAR) Urine pH (5.0-9.0) Ur Specific [place] (1.005-1.030) Urine Protein (NEGATIVE) Urine Glucose (UA) (NEGATIVE) Urine Ketones (NEGATIVE) Urine Occult Blood (NEGATIVE) Urine Nitrite (NEGATIVE) Urine Bilirubin (NEGATIVE) Urine Urobilinogen (0.2-1.0) mg/dL Ur Leukocyte Esterase (NEGATIVE) Urine RBC /HPF Urine WBC (0-5/HPF) /HPF Ur Epithelial Cells (NOT SEEN) /HPF Urine Bacteria (0-FEW/HPF) /HPF Urine Mucus (NOT SEEN) /LPF Urine Opiates Screen Negative (NEGATIVE) Ur Oxycodone Screen Negative (NEGATIVE) Urine Methadone Screen Negative (NEGATIVE) Ur Barbiturates Screen Negative (NEGATIVE) U Tricyclic Antidepress Negative (NEGATIVE) Ur Phencyclidine Scrn Negative (NEGATIVE) Ur Amphetamine Screen Positive H (NEGATIVE) U Methamphetamines Scrn Positive H (NEGATIVE) Urine MDMA Screen Negative (NEGATIVE) U Benzodiazepines Scrn Negative (NEGATIVE) Urine Cocaine Screen Negative (NEGATIVE) U Marijuana (THC) Screen Negative (NEGATIVE) Meds: Medications Discontinued Medications Generic Name Dose Route Start Last Admin Trade Name Freq PRN Reason Stop Dose Admin Sodium Chloride 1,000 mls @ 999 mls/hr 03/15/19 14:16 03/15/19 14:31 Normal Saline IV 03/15/19 15:16 999 mls/hr .BOLUS ONE Administration Ketorolac Tromethamine 30 mg 03/15/19 14:16 03/15/19 14:32 Toradol IVPUSH 03/15/19 14:17 30 mg ONETIME ONE Administration Departure - Departure Time of Disposition: 16:09 Disposition: Home, Self-Care 01 Condition: Fair Clinical Impression: Constipation Qualifiers: Constipation type: unspecified constipation type Qualified Code(s): K59.00 - Constipation, unspecified - Discharge Information *PRESCRIPTION DRUG MONITORING PROGRAM REVIEWED*: Not Applicable *COPY OF PRESCRIPTION DRUG MONITORING REPORT IN PATIENT NATALIE: Not Applicable Instructions: Constipation, Adult, [id number] Forms: ED Department Discharge Care Plan Goals: The patient was advised of the examination, lab and x-ray results during the visit. The patient was encouraged to take MiraLax daily for the next 3-4 days and increase his oral fluid intake. If the patient has any additional symptoms or concerns, the patient should either return to the emergency department or visit his primary care facility. - My Orders Last 24 Hours: My Active Orders 03/15/19 14:39 CULTURE URINE [RM] Stat - Assessment/Plan Last 24 Hours: My Active Orders 03/15/19 14:39 CULTURE URINE [RM] Stat
[2019-03-15 14:52] LABS: ANION GAP 8.9; CHLORIDE,CL 105 mmol/L (101-111); SODIUM,NA 134 mmol/L (135-145)
--- NOTE | 2019-03-15 16:04 | CR ---
Clinical history: 38-year-old male abdominal pain. Interpretation: Flat plate of the abdomen unremarkable i.e. no foreign body, abdominal soft tissue mass lesion, pathologic calcifications or mechanical bowel obstruction. (Arthritic changes of the hips). Accompanying upright abdomen/chest confirms mild dorsolumbar scoliosis. No free subdiaphragmatic air. Normal cardiac silhouette without signs of alveolar edema, dependent effusion, lung mass, hilar lymphadenopathy or focal lobar pneumonia. No pneumothorax. CONCLUSION: Negative exam.
== END 2019-03-15 16:15 | disposition home or self-care (01) ==
LOC: DL.ED 13:57
DX: K59.00 Constipation, unspecified (principal); F17.210 Nicotine dependence, cigarettes, uncomplicated
CPT/HCPCS: 36415; 74019; 80053; 80305; 81001; 85025; 87086; 96361; 96374; 99284; J1885; J7030

== ENCOUNTER 2019-06-29 09:44 | Emergency (ER) | payer SELFPAY ==
--- NOTE | 2019-06-29 09:51 | EDM.PDOC ---
ED HPI GENERAL MEDICAL PROBLEM - General Chief Complaint: Genitourinary Problem Stated Complaint: HISTORY OF BLADDER INFECTION PER PATIENT Time Seen by Provider: 06/29/19 09:47 Source of Information: Reports: Patient, Old Records, RN, RN Notes Reviewed History Limitations: Reports: No Limitations - History of Present Illness INITIAL COMMENTS - FREE TEXT/NARRATIVE: Pt presents to ER from home by POV with c/o "bladder infection". Pt is a paraplegic who self caths and has Hx of UTI's. He reports onset of severe stomach pain, cramping, and back pain x1 hour. Denies fever, chills, N/V, or chest pain. Pt states his last BM was 3 days ago and he usually go every 3 days but does not usually experience pain, cramping or back pain in association with BMs. Onset: Gradual Duration: Getting Worse Location: Reports: Other (Urinary) Quality: Reports: Sharp, Other (Cramping) Severity: Severe Improves with: Reports: None Worsens with: Reports: None Associated Symptoms: Reports: No Other Symptoms Abdominal Pain Score (Numeric/FACES): 8 - Related Data Allergies Allergy/AdvReac Type Severity Reaction Status Date / Time No Known Allergies Allergy Verified 06/29/19 09:54 Home Meds: Home Meds . [No Known Home Meds] 03/15/19 [History] Past Medical History HEENT History: Reports: None Cardiovascular History: Reports: None Other Cardiovascular History: states heart rate can vary Respiratory History: Reports: Intubation, Previous Gastrointestinal History: Reports: Chronic Constipation, GERD Other Gastrointestinal History: previous feeding tube, no longer present Genitourinary History: Reports: UTI, Recurrent Other Genitourinary History: self cath several times a day as needed. Musculoskeletal History: Reports: Neck Pain, Chronic Other Musculoskeletal History: fractured neck at C6-C7 Neurological History: Reports: Brain Injury, Other (See Below) Other Neuro History: Head injury with accident, paraplegia Psychiatric History: Reports: Anxiety, Depression Endocrine/Metabolic History: Reports: None Hematologic History: Reports: None Immunologic History: Reports: None Oncologic (Cancer) History: Reports: None Dermatologic History: Reports: Cellulitis - Infectious Disease History Infectious Disease History: Reports: Chicken Pox - Past Surgical History Head Surgeries/Procedures: Reports: None HEENT Surgical History: Reports: Other (See Below) Other HEENT Surgeries/Procedures: history of trach after accident Cardiovascular Surgical History: Reports: None Respiratory Surgical History: Reports: Other (See Below) Other Respiratory Surgeries/Procedures: hx of tracheostomy from accident, healed GI Surgical History: Reports: None Male Surgical History: Reports: None Neurological Surgical History: Reports: Other (See Below) Other Neurological Surgeries/Procedures: spinal repair/stabilzation post- accident Musculoskeletal Surgical History: Reports: Other (See Below) Other Musculoskeletal Surgeries/Procedures:: neck repair post accident, paraplegia Social & Family History - Family History Family Medical History: Noncontributory - Caffeine Use Caffeine Use: Reports: Coffee, Soda, Tea - Living Situation & Occupation Living situation: Reports: with Significant Other Occupation: Disabled ED ROS GENERAL - Review of Systems Review Of Systems: ROS reveals no pertinent complaints other than HPI. ED EXAM, RENAL/ - Physical Exam Exam: See Below Exam Limited By: No Limitations General Appearance: Alert, No Apparent Distress, Mild Distress (Due to abdominal pain), Other (Chronic paraplegic) Nose: Normal Inspection Throat/Mouth: Normal Inspection, Normal Lips, Normal Voice, No Airway Compromise Head: Atraumatic, Normocephalic Neck: Normal Inspection, Full Range of Motion Respiratory/Chest: No Respiratory Distress, Lungs Clear, Normal Breath Sounds, No Accessory Muscle Use, Chest Non-Tender Cardiovascular: Regular Rate, Rhythm GI/Abdominal: Normal Bowel Sounds, Soft, No Distention, No Abnormal Bruit, No Mass, Tender (Generalized abdominal tenderness). No: Guarding, Rigid, Rebound (Male) Exam: Deferred Rectal (Males) Exam: Deferred Back Exam: Normal Inspection Extremities: No Pedal Edema. No: Joint Swelling, Increased Warmth, Mottled, Pallor, Redness Neurological: Alert, Oriented, Other (Chronic paraplegic) Psychiatric: Normal Mood Skin Exam: Warm, Dry, Intact Course - Vital Signs Last Recorded V/S: Last Vital Signs Temp 98.6 F 06/29/19 11:30 Pulse 65 06/29/19 11:30 Resp 20 06/29/19 11:30 BP 139/88 06/29/19 11:30 Pulse Ox 100 06/29/19 11:30 - Orders/Labs/Meds Orders: Active Orders 24 hr Category Date Time Status Enema [RC] ASDIRECTED Care 06/29/19 10:54 Active Peripheral IV Care [RC] . DIRECTED Care 06/29/19 10:15 Active CHLAMYDIA AND GONORRHEA BY TMA Routine Lab 06/29/19 10:00 Received CULTURE URINE [RM] Stat Lab 06/29/19 10:00 Received Sodium Chloride 0.9% [Saline Flush] Med 06/29/19 10:14 Active 10 ml FLUSH ASDIRECTED PRN Peripheral IV Insertion Adult [OM.PC] Stat Oth 06/29/19 10:13 Ordered Medication Orders Sodium Chloride (Saline Flush) 10 ml FLUSH ASDIRECTED PRN PRN Reason: Keep Vein Open Last Admin: 06/29/19 10:34 Dose: 10 ml Labs: Laboratory Tests 06/29/19 06/29/19 06/29/19 Range/Units 10:00 10:00 10:22 WBC 6.3 (5.0-10.0) 10^3/uL RBC 4.86 (4.6-6.2) 10^6/uL Hgb 14.5 D (14.0-18.0) g/dL Hct 44.3 (40.0-54.0) % MCV 91.2 (80-100) fL MCH 29.8 (27.0-34.0) pg MCHC 32.7 L (33.0-35.0) g/dL Plt Count 273 (150-450) 10^3/uL Neut % (Auto) 63.7 (42.2-75.2) % Lymph % (Auto) 26.9 (20.5-50.1) % [place] % (Auto) 6.2 (2-8) % Eos % (Auto) 2.7 (1.0-3.0) % Baso % (Auto) 0.5 (0.0-1.0) % Sodium (135-145) mmol/L Potassium (3.6-5.0) mmol/L Chloride (101-111) mmol/L Carbon Dioxide (21.0-31.0) mmol/L Anion Gap BUN (7-18) mg/dL Creatinine (0.6-1.3) mg/dL Est Cr Clr Drug Dosing mL/min Estimated GFR (MDRD) BUN/Creatinine Ratio Glucose (74-105) mg/dL Lactic Acid (0.5-2.2) mmol/L Calcium (8.4-10.2) mg/dl Total Bilirubin (0.2-1.0) mg/dL AST (10-42) IU/L ALT (10-60) IU/L Alkaline Phosphatase (42-121) IU/L Total Protein (6.7-8.2) g/dl Albumin (3.2-5.5) g/dl Globulin Albumin/Globulin Ratio Amylase (28-100) U/L Lipase (22-51) U/L Urine Color Yellow (YELLOW) Urine Appearance Clear (CLEAR) Urine pH 6.0 (5.0-9.0) Ur Specific [place] 1.025 (1.005-1.030) Urine Protein Negative (NEGATIVE) Urine Glucose (UA) Negative (NEGATIVE) Urine Ketones Negative (NEGATIVE) Urine Occult Blood Negative (NEGATIVE) Urine Nitrite Negative (NEGATIVE) Urine Bilirubin Negative (NEGATIVE) Urine Urobilinogen 1.0 (0.2-1.0) mg/dL Ur Leukocyte Esterase Small H (NEGATIVE) Urine RBC 0-5 /HPF Urine WBC 50-75 H (0-5/HPF) /HPF Ur Epithelial Cells Moderate H (NOT SEEN) /HPF Urine Bacteria Few (0-FEW/HPF) /HPF Urine Mucus Many H (NOT SEEN) /LPF Urine Opiates Screen Negative (NEGATIVE) Ur Oxycodone Screen Negative (NEGATIVE) Urine Methadone Screen Negative (NEGATIVE) Ur Barbiturates Screen Negative (NEGATIVE) U Tricyclic Antidepress Negative (NEGATIVE) Ur Phencyclidine Scrn Negative (NEGATIVE) Ur Amphetamine Screen Positive H (NEGATIVE) U Methamphetamines Scrn Positive H (NEGATIVE) Urine MDMA Screen Positive H (NEGATIVE) U Benzodiazepines Scrn Negative (NEGATIVE) Urine Cocaine Screen Negative (NEGATIVE) U Marijuana (THC) Screen Negative (NEGATIVE) 06/29/19 06/29/19 Range/Units 10:22 10:22 WBC (5.0-10.0) 10^3/uL RBC (4.6-6.2) 10^6/uL Hgb (14.0-18.0) g/dL Hct (40.0-54.0) % MCV (80-100) fL MCH (27.0-34.0) pg MCHC (33.0-35.0) g/dL Plt Count (150-450) 10^3/uL Neut % (Auto) (42.2-75.2) % Lymph % (Auto) (20.5-50.1) % [place] % (Auto) (2-8) % Eos % (Auto) (1.0-3.0) % Baso % (Auto) (0.0-1.0) % Sodium 139 (135-145) mmol/L Potassium 3.9 (3.6-5.0) mmol/L Chloride 104 (101-111) mmol/L Carbon Dioxide 27.0 (21.0-31.0) mmol/L Anion Gap 11.9 BUN 14 (7-18) mg/dL Creatinine 0.6 (0.6-1.3) mg/dL Est Cr Clr Drug Dosing 144.58 mL/min Estimated GFR (MDRD) > 60 BUN/Creatinine Ratio 23.33 Glucose 98 (74-105) mg/dL Lactic Acid 0.9 (0.5-2.2) mmol/L Calcium 8.8 (8.4-10.2) mg/dl Total Bilirubin 0.7 (0.2-1.0) mg/dL AST 36 (10-42) IU/L ALT 47 (10-60) IU/L Alkaline Phosphatase 71 (42-121) IU/L Total Protein 7.5 (6.7-8.2) g/dl Albumin 3.8 (3.2-5.5) g/dl Globulin 3.7 Albumin/Globulin Ratio 1.03 Amylase 83 (28-100) U/L Lipase 29 (22-51) U/L Urine Color (YELLOW) Urine Appearance (CLEAR) Urine pH (5.0-9.0) Ur Specific [place] (1.005-1.030) Urine Protein (NEGATIVE) Urine Glucose (UA) (NEGATIVE) Urine Ketones (NEGATIVE) Urine Occult Blood (NEGATIVE) Urine Nitrite (NEGATIVE) Urine Bilirubin (NEGATIVE) Urine Urobilinogen (0.2-1.0) mg/dL Ur Leukocyte Esterase (NEGATIVE) Urine RBC /HPF Urine WBC (0-5/HPF) /HPF Ur Epithelial Cells (NOT SEEN) /HPF Urine Bacteria (0-FEW/HPF) /HPF Urine Mucus (NOT SEEN) /LPF Urine Opiates Screen (NEGATIVE) Ur Oxycodone Screen (NEGATIVE) Urine Methadone Screen (NEGATIVE) Ur Barbiturates Screen (NEGATIVE) U Tricyclic Antidepress (NEGATIVE) Ur Phencyclidine Scrn (NEGATIVE) Ur Amphetamine Screen (NEGATIVE) U Methamphetamines Scrn (NEGATIVE) Urine MDMA Screen (NEGATIVE) U Benzodiazepines Scrn (NEGATIVE) Urine Cocaine Screen (NEGATIVE) U Marijuana (THC) Screen (NEGATIVE) Meds: Medications Generic Name Dose Route Start Last Admin Trade Name Freq PRN Reason Stop Dose Admin Sodium Chloride 10 ml 06/29/19 10:14 06/29/19 10:34 Saline Flush FLUSH 10 ml ASDIRECTED PRN Administration Keep Vein Open Discontinued Medications Generic Name Dose Route Start Last Admin Trade Name Freq PRN Reason Stop Dose Admin Dicyclomine HCl 20 mg 06/29/19 10:14 06/29/19 10:28 Bentyl IM 06/29/19 10:15 20 mg ONETIME ONE Administration Sodium Chloride 1,000 mls @ 999 mls/hr 06/29/19 10:14 06/29/19 10:47 Normal Saline IV 06/29/19 11:14 999 mls/hr .BOLUS ONE Administration Lactulose 20 gm 06/29/19 10:53 06/29/19 10:57 Cephulac PO 06/29/19 10:54 20 gm ONETIME ONE Administration - Re-Assessments/Exams Free Text/Narrative Re-Assessment/Exam: 06/29/19 13:07 Pt had lrg stool output following po Lactulose and soap suds enemas. Departure - Departure Time of Disposition: 13:07 Disposition: Home, Self-Care 01 Condition: Good Clinical Impression: Methamphetamine abuse Constipation Qualifiers: Constipation type: other constipation type Qualified Code(s): K59.09 - Other constipation - Discharge Information *PRESCRIPTION DRUG MONITORING PROGRAM REVIEWED*: Not Applicable *COPY OF PRESCRIPTION DRUG MONITORING REPORT IN PATIENT NATALIE: Not Applicable Instructions: High-Fiber Diet, Constipation, Adult, [id number], Stimulant Use Disorder-Methamphetamines Forms: ED Department Discharge Additional Instructions: Drink plenty of water or juice. High fiber diet with plenty of fresh fruits and vegetables. Abstain from substance abuse as this causes worsening constipation and abdominal pain issues. Follow up in clinic for recheck in the next few days if needed. - My Orders Last 24 Hours: My Active Orders 06/29/19 10:00 CHLAMYDIA AND GONORRHEA BY TMA Routine CULTURE URINE [RM] Stat 06/29/19 10:13 Peripheral IV Insertion Adult [OM.PC] Stat 06/29/19 10:14 Sodium Chloride 0.9% [Saline Flush] 10 ml FLUSH ASDIRECTED PRN 06/29/19 10:15 Peripheral IV Care [RC] . DIRECTED 06/29/19 10:54 Enema [RC] ASDIRECTED - Assessment/Plan Last 24 Hours: My Active Orders 06/29/19 10:00 CHLAMYDIA AND GONORRHEA BY TMA Routine CULTURE URINE [RM] Stat 06/29/19 10:13 Peripheral IV Insertion Adult [OM.PC] Stat 06/29/19 10:14 Sodium Chloride 0.9% [Saline Flush] 10 ml FLUSH ASDIRECTED PRN 06/29/19 10:15 Peripheral IV Care [RC] . DIRECTED 06/29/19 10:54 Enema [RC] ASDIRECTED
[2019-06-29] MEDS ORDERED: Dicyclomine 20 MG/2 ML SDV IM ONE (10:14)
[2019-06-29] MEDS ORDERED: Sodium Chloride 0.9% 10 ML Syringe FLUSH PRN (10:14)
[2019-06-29] MEDS ORDERED: Sodium Chloride 0.9% 1,000 ML IV ONE (10:14)
[2019-06-29 10:53] LABS: ANION GAP 11.9; CHLORIDE,CL 104 mmol/L (101-111); SODIUM,NA 139 mmol/L (135-145)
[2019-06-29] MEDS ORDERED: Lactulose Soln 10 GM/15 ML 30 ML UD Cup PO ONE (10:53)
[2019-06-29 13:03] VITALS: BP 139/88
== END 2019-06-29 13:23 | disposition home or self-care (01) ==
LOC: DL.ED 09:44
DX: K59.09 Other constipation (principal); F15.10 Other stimulant abuse, uncomplicated
CPT/HCPCS: 36415; 74018; 80053; 80305; 81001; 82150; 83605; 83690; 85025; 87086; 87491; 87591; 96360; 96361; 96372; 99284; A9270; J0500; J7030

== ENCOUNTER 2019-07-16 07:30 | Emergency (ER) | payer MEDICAID ==
--- NOTE | 2019-07-16 08:13 | EDM.PDOC ---
ED HPI GENERAL MEDICAL PROBLEM - General Chief Complaint: Abdominal Pain Stated Complaint: UTI? Time Seen by Provider: 07/16/19 08:00 Source of Information: Reports: Patient History Limitations: Reports: No Limitations - History of Present Illness INITIAL COMMENTS - FREE TEXT/NARRATIVE: 39 year old male with RLQ abdominal pain with bilateral flank pain since 299 without N/V. Hx of paraplegia and has been constipated x 2 days. tried suppository without success. No fevers. Self caths. Severity: Mild Left Lower Abdomen Pain Score (Numeric/FACES): 8 - Related Data Allergies Allergy/AdvReac Type Severity Reaction Status Date / Time No Known Allergies Allergy Verified 06/29/19 09:54 Home Meds: Home Meds . [No Known Home Meds] 03/15/19 [History] Past Medical History HEENT History: Reports: None Cardiovascular History: Reports: None Other Cardiovascular History: states heart rate can vary Respiratory History: Reports: Intubation, Previous Gastrointestinal History: Reports: Chronic Constipation, GERD Other Gastrointestinal History: previous feeding tube, no longer present Genitourinary History: Reports: UTI, Recurrent Other Genitourinary History: self cath several times a day as needed. Musculoskeletal History: Reports: Neck Pain, Chronic Other Musculoskeletal History: fractured neck at C6-C7 Neurological History: Reports: Brain Injury, Other (See Below) Other Neuro History: Head injury with accident, paraplegia Psychiatric History: Reports: Anxiety, Depression Endocrine/Metabolic History: Reports: None Hematologic History: Reports: None Immunologic History: Reports: None Oncologic (Cancer) History: Reports: None Dermatologic History: Reports: Cellulitis - Infectious Disease History Infectious Disease History: Reports: Chicken Pox - Past Surgical History Head Surgeries/Procedures: Reports: None HEENT Surgical History: Reports: Other (See Below) Other HEENT Surgeries/Procedures: history of trach after accident Cardiovascular Surgical History: Reports: None Respiratory Surgical History: Reports: Other (See Below) Other Respiratory Surgeries/Procedures: hx of tracheostomy from accident, healed GI Surgical History: Reports: None Male Surgical History: Reports: None Neurological Surgical History: Reports: Other (See Below) Other Neurological Surgeries/Procedures: spinal repair/stabilzation post- accident Musculoskeletal Surgical History: Reports: Other (See Below) Other Musculoskeletal Surgeries/Procedures:: neck repair post accident, paraplegia Social & Family History - Family History Family Medical History: Noncontributory - Caffeine Use Caffeine Use: Reports: Coffee, Soda, Tea - Living Situation & Occupation Living situation: Reports: with Significant Other Occupation: Disabled ED ROS GENERAL - Review of Systems Review Of Systems: ROS reveals no pertinent complaints other than HPI. GI/Abdominal: Reports: Abdominal Pain ED EXAM, GI/ABD - Physical Exam Exam: See Below Exam Limited By: No Limitations General Appearance: Alert, WD/WN, No Apparent Distress Eyes: Bilateral: Normal Appearance Throat/Mouth: Normal Lips, Normal Voice, No Airway Compromise Head: Atraumatic, Normocephalic Neck: Normal Inspection, Supple, Non-Tender, Full Range of Motion Respiratory/Chest: No Respiratory Distress, Lungs Clear, Normal Breath Sounds, No Accessory Muscle Use, Chest Non-Tender Cardiovascular: Normal Peripheral Pulses, Regular Rate, Rhythm, No Edema, No Gallop, No JVD, No Murmur, No Rub GI/Abdominal Exam: Soft, No Organomegaly, No Distention, Rebound, Other (Tender in the lower right abdominal region; mild guarding. Has sensation in the lower abdomen even though paraplegia) Back Exam: CVA Tenderness (L), CVA Tenderness (R) Extremities: Normal Inspection (Paraplegia. ), Other Neurological: Alert, Oriented, Normal Cognition Psychiatric: Normal Affect, Normal Mood Skin Exam: Warm, Dry, Intact, Normal Color, No Rash Lymphatic: No Adenopathy Course - Vital Signs Last Recorded V/S: Last Vital Signs Temp 36.4 C 07/16/19 07:38 Pulse 67 07/16/19 07:38 Resp 18 07/16/19 07:38 BP 142/91 H 07/16/19 07:38 Pulse Ox 100 07/16/19 07:38 - Orders/Labs/Meds Orders: Active Orders 24 hr Category Date Time Status Abdomen 1V Flat [CR] Urgent Exams 07/16/19 08:30 Taken Labs: Laboratory Tests 07/16/19 07/16/19 07/16/19 Range/Units 07:58 08:12 08:12 WBC 6.3 (5.0-10.0) 10^3/uL RBC 4.97 (4.6-6.2) 10^6/uL Hgb 15.0 (14.0-18.0) g/dL Hct 45.0 (40.0-54.0) % MCV 90.5 (80-100) fL MCH 30.2 (27.0-34.0) pg MCHC 33.3 (33.0-35.0) g/dL Plt Count 301 (150-450) 10^3/uL Neut % (Auto) 62.2 (42.2-75.2) % Lymph % (Auto) 26.5 (20.5-50.1) % [place] % (Auto) 7.6 (2-8) % Eos % (Auto) 3.2 H (1.0-3.0) % Baso % (Auto) 0.5 (0.0-1.0) % Sodium 138 (135-145) mmol/L Potassium 4.4 (3.6-5.0) mmol/L Chloride 105 (101-111) mmol/L Carbon Dioxide 26.0 (21.0-31.0) mmol/L Anion Gap 11.4 BUN 14 (7-18) mg/dL Creatinine 0.6 (0.6-1.3) mg/dL Est Cr Clr Drug Dosing 166.93 mL/min Estimated GFR (MDRD) > 60 BUN/Creatinine Ratio 23.33 Glucose 93 (74-105) mg/dL Calcium 8.6 (8.4-10.2) mg/dl Total Bilirubin 0.7 (0.2-1.0) mg/dL AST 46 H (10-42) IU/L ALT 61 H (10-60) IU/L Alkaline Phosphatase 75 (42-121) IU/L Total Protein 7.4 (6.7-8.2) g/dl Albumin 3.7 (3.2-5.5) g/dl Globulin 3.7 Albumin/Globulin Ratio 1.00 Lipase 43 (22-51) U/L Urine Color Yellow (YELLOW) Urine Appearance Clear (CLEAR) Urine pH 6.0 (5.0-9.0) Ur Specific [place] <= 1.005 (1.005-1.030) Urine Protein Negative (NEGATIVE) Urine Glucose (UA) Negative (NEGATIVE) Urine Ketones Negative (NEGATIVE) Urine Occult Blood Trace-intact H (NEGATIVE) Urine Nitrite Negative (NEGATIVE) Urine Bilirubin Negative (NEGATIVE) Urine Urobilinogen 0.2 (0.2-1.0) mg/dL Ur Leukocyte Esterase Negative (NEGATIVE) Urine RBC 0-5 /HPF Urine WBC 0-5 (0-5/HPF) /HPF Ur Epithelial Cells Occasional (NOT SEEN) /HPF Urine Bacteria Few (0-FEW/HPF) /HPF Meds: Medications Discontinued Medications Generic Name Dose Route Start Last Admin Trade Name Sho PRN Reason Stop Dose Admin Magnesium Citrate 296 ml 07/16/19 09:04 Citrate Of Magnesia PO 07/16/19 09:05 ONETIME ONE - Radiology Interpretation Free Text/Narrative:: Abd flat plate: + for constipation. - Re-Assessments/Exams Free Text/Narrative Re-Assessment/Exam: 07/16/19 08:32 Urine without evidence of infection on UA. CBC without leukocytosis. No n/v. Departure - Departure Time of Disposition: 09:03 Disposition: Home, Self-Care 01 Condition: Good Clinical Impression: Paraplegia, Constipation - Discharge Information *PRESCRIPTION DRUG MONITORING PROGRAM REVIEWED*: Not Applicable *COPY OF PRESCRIPTION DRUG MONITORING REPORT IN PATIENT NATALIE: Not Applicable Instructions: Constipation, Adult Forms: ED Department Discharge Additional Instructions: Mag citrate drink; take one bottle today and two Senna-S stool softener twice a day. Regular bowel program should include Senna-S twice a day and Dulcolax suppository daily. - My Orders Last 24 Hours: My Active Orders 07/16/19 08:30 Abdomen 1V Flat [CR] Urgent - Assessment/Plan Last 24 Hours: My Active Orders 07/16/19 08:30 Abdomen 1V Flat [CR] Urgent
[2019-07-16 08:21] VITALS: BP 142/91; PULSE 67
[2019-07-16 08:40] LABS: ANION GAP 11.4; CHLORIDE,CL 105 mmol/L (101-111); SODIUM,NA 138 mmol/L (135-145)
[2019-07-16] MEDS ORDERED: Magnesium Citrate Solution 296 ML Bottle PO ONE (09:04)
== END 2019-07-16 09:26 | disposition home or self-care (01) ==
LOC: DL.ED 07:30
DX: K59.00 Constipation, unspecified (principal); G82.20 Paraplegia, unspecified
CPT/HCPCS: 36415; 74018; 80053; 81001; 83690; 85025; 99284; A9270

== ENCOUNTER 2019-07-17 00:48 | Emergency (ER) | payer MEDICAID ==
[2019-07-17 01:02] VITALS: BP 133/84; PULSE 84
[2019-07-17] MEDS ORDERED: Dicyclomine 20 MG/2 ML SDV IM ONE (01:21)
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
[2019-07-17 01:34] LABS: ANION GAP 10.6; CHLORIDE,CL 102 mmol/L (101-111); SODIUM,NA 137 mmol/L (135-145)
[2019-07-17] MEDS ORDERED: LORazepam 2 MG/ML Syringe IVPUSH ONE (01:45)
== END 2019-07-17 01:58 | disposition home or self-care (01) ==
LOC: DL.ED 00:48
DX: K59.09 Other constipation (principal); F17.200 Nicotine dependence, unspecified, uncomplicated
CPT/HCPCS: 36415; 80053; 80305; 81003; 85025; 96372; 96374; 99283; J0500; J2060

== ENCOUNTER 2019-10-24 07:04 | Emergency (ER) | payer MEDICAID ==
[2019-10-24 07:21] VITALS: PULSE 88
[2019-10-24] MEDS ORDERED: Sodium Chloride 0.9% 1,000 ML IV ONE (07:25)
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
[2019-10-24 08:06] LABS: ANION GAP 13.7; CHLORIDE,CL 99 mmol/L (101-111); SODIUM,NA 133 mmol/L (135-145)
[2019-10-24] MEDS ORDERED: LORazepam 2 MG/ML Syringe IVPUSH ONE (08:29)
[2019-10-24 09:20] VITALS: BP 151/91
== END 2019-10-24 11:12 | disposition home or self-care (01) ==
LOC: DL.ED 07:04
DX: K59.09 Other constipation (principal)
CPT/HCPCS: 36415; 74019; 80053; 80305; 81003; 85025; 96361; 96374; 99284; J2060; J7030

== ENCOUNTER 2019-10-29 00:04 | Emergency (ER) | payer MEDICAID ==
[2019-10-29] MEDS ORDERED: Magnesium Citrate Solution 296 ML Bottle PO ONE (00:05)
[2019-10-29 01:44] VITALS: BP 145/95; PULSE 81
[2019-10-29] MEDS ORDERED: Magnesium Citrate Solution 296 ML Bottle ONE (01:57)
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
== END 2019-10-29 02:09 | disposition home or self-care (01) ==
LOC: DL.ED 00:04
DX: K59.01 Slow transit constipation (principal); F17.210 Nicotine dependence, cigarettes, uncomplicated
CPT/HCPCS: 99283; A9270

== ENCOUNTER 2019-11-04 01:30 | Emergency (ER) | payer MEDICAID ==
[2019-11-04 01:45] VITALS: BP 123/71; PULSE 86
[2019-11-04] MEDS ORDERED: Dicyclomine 20 MG/2 ML SDV IM ONE (01:51)
--- NOTE | 2019-11-04 01:54 | EDM.PDOC ---
ED HPI GENERAL MEDICAL PROBLEM - General Chief Complaint: Gastrointestinal Problem Stated Complaint: AMBULANCE Time Seen by Provider: 11/04/19 01:52 Source of Information: Reports: Patient History Limitations: Reports: No Limitations - History of Present Illness INITIAL COMMENTS - FREE TEXT/NARRATIVE: c/o left back pain hour ago. ate john gallegos tonaleshia. was here few days ago Dx with constipation. Left Lower Abdominal Pain Score (Numeric/FACES): 9 - Related Data Allergies Allergy/AdvReac Type Severity Reaction Status Date / Time No Known Allergies Allergy Verified 11/04/19 01:27 Home Meds: Home Meds Fiber Drink 1 dose PO DAILY 10/29/19 [History] Sennosides/Docusate Sodium [Stool Softener-Laxative Tablet] 1 each PO BID [History] Past Medical History HEENT History: Reports: None Cardiovascular History: Reports: None Other Cardiovascular History: states heart rate can vary Respiratory History: Reports: Intubation, Previous Gastrointestinal History: Reports: Chronic Constipation, GERD Other Gastrointestinal History: previous feeding tube, no longer present Genitourinary History: Reports: UTI, Recurrent Other Genitourinary History: self cath several times a day as needed. Musculoskeletal History: Reports: Neck Pain, Chronic Other Musculoskeletal History: fractured neck at C6-C7 Neurological History: Reports: Brain Injury, Other (See Below) Other Neuro History: Head injury with accident, paraplegia Psychiatric History: Reports: Anxiety, Depression Endocrine/Metabolic History: Reports: None Hematologic History: Reports: None Immunologic History: Reports: None Oncologic (Cancer) History: Reports: None Dermatologic History: Reports: Cellulitis - Infectious Disease History Infectious Disease History: Reports: Chicken Pox - Past Surgical History Head Surgeries/Procedures: Reports: None Cardiovascular Surgical History: Reports: None Respiratory Surgical History: Reports: Other (See Below) Other Respiratory Surgeries/Procedures: hx of tracheostomy from accident, healed GI Surgical History: Reports: None Male Surgical History: Reports: None Neurological Surgical History: Reports: Other (See Below) Other Neurological Surgeries/Procedures: spinal repair/stabilzation post- accident Musculoskeletal Surgical History: Reports: Other (See Below) Other Musculoskeletal Surgeries/Procedures:: neck repair post accident, paraplegia Social & Family History - Family History Family Medical History: Noncontributory - Tobacco Use Smoking Status *Q: Current Every Day Smoker Years of Tobacco use: 22 Packs/Tins Daily: 5 Used Tobacco, but Quit: No Second Hand Smoke Exposure: Yes - Caffeine Use Caffeine Use: Reports: Coffee, Energy Drinks, Soda, Tea Caffeine Use Comment: 2 cans pop a day - Recreational Drug Use Recreational Drug Use: Yes Recreational Drug Type: Reports: Marijuana/Hashish Recreational Drug Use Frequency: Binges Recreational Drug Last Use: 11/03/19 - Living Situation & Occupation Living situation: Reports: with Significant Other Occupation: Disabled ED ROS GENERAL - Review of Systems Review Of Systems: Comprehensive ROS is negative, except as noted in HPI. ED EXAM, GI/ABD - Physical Exam Exam: See Below Exam Limited By: No Limitations General Appearance: Alert, WD/WN, Mild Distress, Moderate Distress, Other ( discomfort). No: Active Emesis Ears: Hearing Grossly Normal Throat/Mouth: Normal Voice, No Airway Compromise Head: Atraumatic Neck: Non-Tender, Full Range of Motion Respiratory/Chest: No Respiratory Distress Cardiovascular: Regular Rate, Rhythm GI/Abdominal Exam: Tender, Other (periumb>). No: Distended, Guarding, Rigid, Rebound Neurological: Alert, Oriented, Normal Cognition Psychiatric: Flat Affect, Tearful Skin Exam: Warm, Dry, Normal Color Lymphatic: No Adenopathy Course - Vital Signs Last Recorded V/S: Last Vital Signs Temp 35.9 C 11/04/19 01:43 Pulse 86 11/04/19 01:43 Resp 20 11/04/19 01:43 BP 123/71 11/04/19 01:43 Pulse Ox 99 11/04/19 01:43 - Orders/Labs/Meds Orders: Active Orders 24 hr Category Date Time Status Abdomen Pelvis w Cont [CT] Urgent Exams 11/04/19 02:34 Taken Labs: Laboratory Tests 11/04/19 11/04/19 Range/Units 02:00 02:00 WBC 6.7 (5.0-10.0) 10^3/uL RBC 4.56 L (4.6-6.2) 10^6/uL Hgb 13.8 L (14.0-18.0) g/dL Hct 42.1 (40.0-54.0) % MCV 92.3 (80-100) fL MCH 30.3 (27.0-34.0) pg MCHC 32.8 L (33.0-35.0) g/dL Plt Count 273 (150-450) 10^3/uL Neut % (Auto) 58.1 (42.2-75.2) % Lymph % (Auto) 26.3 (20.5-50.1) % [place] % (Auto) 10.4 H (2-8) % Eos % (Auto) 4.6 H (1.0-3.0) % Baso % (Auto) 0.6 (0.0-1.0) % Sodium 135 (135-145) mmol/L Potassium 4.3 (3.6-5.0) mmol/L Chloride 100 L (101-111) mmol/L Carbon Dioxide 28.0 (21.0-31.0) mmol/L Anion Gap 11.3 BUN 21 H (7-18) mg/dL Creatinine 0.7 (0.6-1.3) mg/dL Est Cr Clr Drug Dosing 133.38 mL/min Estimated GFR (MDRD) > 60 BUN/Creatinine Ratio 30.00 Glucose 96 (74-105) mg/dL Calcium 9.0 (8.4-10.2) mg/dl Total Bilirubin 0.6 (0.2-1.0) mg/dL AST 35 (10-42) IU/L ALT 37 (10-60) IU/L Alkaline Phosphatase 76 (42-121) IU/L Total Protein 7.2 (6.7-8.2) g/dl Albumin 3.8 (3.2-5.5) g/dl Globulin 3.4 Albumin/Globulin Ratio 1.12 Amylase 130 H (28-100) U/L Lipase 48 (22-51) U/L Meds: Medications Discontinued Medications Generic Name Dose Route Start Last Admin Trade Name Freq PRN Reason Stop Dose Admin Dicyclomine HCl 20 mg 11/04/19 01:51 11/04/19 02:00 Bentyl IM 11/04/19 01:52 20 mg ONETIME ONE Administration Iopamidol 100 ml 11/04/19 02:34 11/04/19 02:57 Isovue-300 (61%) IVPUSH 11/04/19 02:35 75 ml ONETIME ONE Administration - Re-Assessments/Exams Free Text/Narrative Re-Assessment/Exam: 11/04/19 04:17 results discussed with pt. Departure - Departure Time of Disposition: 04:18 Disposition: Home, Self-Care 01 Condition: Good Clinical Impression: Abdominal pain, Constipation by delayed colonic transit - Discharge Information Instructions: Constipation, Adult, [id number] Forms: ED Department Discharge Additional Instructions: 1) no solid foods next 3 days 2) follow up at clinic rx given; bentyl 10mg bid x 6 Sepsis Event Note - Evaluation Sepsis Screening Result: No Definite Risk - Focused Exam Vital Signs: Vital Signs Temp Pulse Resp BP Pulse Ox 11/04/19 01:43 35.9 C 86 20 123/71 99 Date Exam was Performed: 11/04/19 Time Exam was Performed: 04:17 - My Orders Last 24 Hours: My Active Orders 11/04/19 02:34 Abdomen Pelvis w Cont [CT] Urgent - Assessment/Plan Last 24 Hours: My Active Orders 11/04/19 02:34 Abdomen Pelvis w Cont [CT] Urgent
[2019-11-04 02:24] LABS: ANION GAP 11.3; CHLORIDE,CL 100 mmol/L (101-111); SODIUM,NA 135 mmol/L (135-145)
[2019-11-04] MEDS ORDERED: Iopamidol 612 MG/ML 100 ML Bottle IVPUSH ONE (02:34)
== END 2019-11-04 06:20 | disposition home or self-care (01) ==
LOC: DL.ED 01:30
DX: K59.01 Slow transit constipation (principal); F17.210 Nicotine dependence, cigarettes, uncomplicated
CPT/HCPCS: 36415; 74177; 80053; 82150; 83690; 85025; 96372; 99284; J0500; Q9967

== ENCOUNTER 2019-11-10 01:09 | Emergency (ER) | payer MEDICAID ==
[2019-11-10] MEDS ORDERED: Ketorolac 30 MG/ML SDV IVPUSH ONE (01:14)
--- NOTE | 2019-11-10 01:18 | EDM.PDOC ---
ED HPI GENERAL MEDICAL PROBLEM - General Chief Complaint: Abdominal Pain Stated Complaint: AMBULANCE Time Seen by Provider: 11/10/19 01:15 Source of Information: Reports: Patient, Family History Limitations: Reports: No Limitations - History of Present Illness INITIAL COMMENTS - FREE TEXT/NARRATIVE: recurrent h/o abd pain. was here 6 days ago for same, Tx with bentyl was doing ok till this am only had small amount berry cake and fuentes but nothing tonight. n= pain not going away. last BM 2 days ago. been taking stool softner but little help. Abdominal Pain Score (Numeric/FACES): 10 - Related Data Allergies Allergy/AdvReac Type Severity Reaction Status Date / Time No Known Allergies Allergy Verified 11/10/19 01:14 Home Meds: Home Meds Fiber Drink 1 dose PO DAILY 10/29/19 [History] Sennosides/Docusate Sodium [Stool Softener-Laxative Tablet] 1 each PO BID [History] Past Medical History HEENT History: Reports: None Cardiovascular History: Reports: None Other Cardiovascular History: states heart rate can vary Respiratory History: Reports: Intubation, Previous Gastrointestinal History: Reports: Chronic Constipation, GERD Other Gastrointestinal History: previous feeding tube, no longer present Genitourinary History: Reports: UTI, Recurrent Other Genitourinary History: self cath several times a day as needed. Musculoskeletal History: Reports: Neck Pain, Chronic Other Musculoskeletal History: fractured neck at C6-C7 Neurological History: Reports: Brain Injury, Other (See Below) Other Neuro History: Head injury with accident, paraplegia Psychiatric History: Reports: Anxiety, Depression Endocrine/Metabolic History: Reports: None Hematologic History: Reports: None Immunologic History: Reports: None Oncologic (Cancer) History: Reports: None Dermatologic History: Reports: Cellulitis - Infectious Disease History Infectious Disease History: Reports: Chicken Pox - Past Surgical History Head Surgeries/Procedures: Reports: None Cardiovascular Surgical History: Reports: None Respiratory Surgical History: Reports: Other (See Below) Other Respiratory Surgeries/Procedures: hx of tracheostomy from accident, healed GI Surgical History: Reports: None Male Surgical History: Reports: None Neurological Surgical History: Reports: Other (See Below) Other Neurological Surgeries/Procedures: spinal repair/stabilzation post- accident Musculoskeletal Surgical History: Reports: Other (See Below) Other Musculoskeletal Surgeries/Procedures:: neck repair post accident, paraplegia Social & Family History - Family History Family Medical History: Noncontributory - Caffeine Use Caffeine Use: Reports: Coffee, Energy Drinks, Soda, Tea Caffeine Use Comment: 2 cans pop a day - Living Situation & Occupation Living situation: Reports: with Significant Other Occupation: Disabled ED ROS GENERAL - Review of Systems Review Of Systems: Comprehensive ROS is negative, except as noted in HPI. ED EXAM, GI/ABD - Physical Exam Exam: See Below Exam Limited By: No Limitations General Appearance: Alert, WD/WN, Mild Distress, Moderate Distress, Other ( tearful). No: Active Emesis Ears: Hearing Grossly Normal Throat/Mouth: Normal Voice, No Airway Compromise Head: Atraumatic Neck: Non-Tender, Full Range of Motion Respiratory/Chest: No Respiratory Distress Cardiovascular: Regular Rate, Rhythm GI/Abdominal Exam: Tender, Other (periumb>, BS hyper, splinting). No: Distended , Guarding, Rigid, Rebound Neurological: Alert, Oriented, Normal Cognition, No Motor/Sensory Deficits Psychiatric: Tearful Skin Exam: Warm, Dry, Normal Color Lymphatic: No Adenopathy Course - Vital Signs Last Recorded V/S: Last Vital Signs Temp 36.6 C 11/10/19 01:14 Pulse 83 11/10/19 01:14 Resp 16 11/10/19 01:14 BP 127/113 H 11/10/19 01:14 Pulse Ox 100 11/10/19 01:14 - Orders/Labs/Meds Orders: Active Orders 24 hr Category Date Time Status Dicyclomine [Bentyl] Med 11/10/19 02:14 Once 20 mg IM ONETIME ONE Labs: Laboratory Tests 11/10/19 11/10/19 Range/Units 01:20 01:20 WBC 6.6 (5.0-10.0) 10^3/uL RBC 4.10 L (4.6-6.2) 10^6/uL Hgb 12.5 L (14.0-18.0) g/dL Hct 37.5 L (40.0-54.0) % MCV 91.5 (80-100) fL MCH 30.5 (27.0-34.0) pg MCHC 33.3 (33.0-35.0) g/dL Plt Count 281 (150-450) 10^3/uL Neut % (Auto) 64.9 (42.2-75.2) % Lymph % (Auto) 24.8 (20.5-50.1) % [place] % (Auto) 8.0 (2-8) % Eos % (Auto) 2.0 (1.0-3.0) % Baso % (Auto) 0.3 (0.0-1.0) % Sodium 137 (135-145) mmol/L Potassium 3.7 (3.6-5.0) mmol/L Chloride 106 (101-111) mmol/L Carbon Dioxide 23.0 (21.0-31.0) mmol/L Anion Gap 11.7 BUN 23 H (7-18) mg/dL Creatinine 0.7 (0.6-1.3) mg/dL Est Cr Clr Drug Dosing 131.64 mL/min Estimated GFR (MDRD) > 60 BUN/Creatinine Ratio 32.85 Glucose 92 (74-105) mg/dL Calcium 8.0 L (8.4-10.2) mg/dl Total Bilirubin 0.6 (0.2-1.0) mg/dL AST 27 (10-42) IU/L ALT 34 (10-60) IU/L Alkaline Phosphatase 67 (42-121) IU/L Total Protein 6.7 (6.7-8.2) g/dl Albumin 3.6 (3.2-5.5) g/dl Globulin 3.1 Albumin/Globulin Ratio 1.16 Amylase 75 (28-100) U/L Lipase 36 (22-51) U/L Meds: Medications Discontinued Medications Generic Name Dose Route Start Last Admin Trade Name Freq PRN Reason Stop Dose Admin Ketorolac Tromethamine 30 mg 11/10/19 01:14 11/10/19 01:23 Toradol IVPUSH 11/10/19 01:15 30 mg ONETIME ONE Administration - Re-Assessments/Exams Free Text/Narrative Re-Assessment/Exam: 11/10/19 02:14 results discussed with pt & family Departure - Departure Time of Disposition: 02:14 Disposition: Home, Self-Care 01 Condition: Good Clinical Impression: Paraplegia, Constipation by delayed colonic transit - Discharge Information Instructions: Constipation, Adult, [id number] Forms: ED Department Discharge Additional Instructions: 1) follow up at clinic tomorrow for GI REFERRAL rx given; bentyl 10mg bid for abd pain x 20 Sepsis Event Note - Focused Exam Vital Signs: Vital Signs Temp Pulse Resp BP Pulse Ox 11/10/19 01:14 36.6 C 83 16 127/113 H 100 Date Exam was Performed: 11/10/19 Time Exam was Performed: 02:14 - My Orders Last 24 Hours: My Active Orders 11/10/19 02:14 Dicyclomine [Bentyl] 20 mg IM ONETIME ONE - Assessment/Plan Last 24 Hours: My Active Orders 11/10/19 02:14 Dicyclomine [Bentyl] 20 mg IM ONETIME ONE
[2019-11-10 01:23] VITALS: BP 127/113; PULSE 83
[2019-11-10 01:47] LABS: ANION GAP 11.7; CHLORIDE,CL 106 mmol/L (101-111); SODIUM,NA 137 mmol/L (135-145)
[2019-11-10] MEDS ORDERED: Dicyclomine 20 MG/2 ML SDV IM ONE (02:14)
== END 2019-11-10 02:37 | disposition home or self-care (01) ==
LOC: DL.ED 01:09
DX: K59.01 Slow transit constipation (principal); G82.20 Paraplegia, unspecified
CPT/HCPCS: 36415; 80053; 82150; 83690; 85025; 96372; 96374; 99284; J0500; J1885

== ENCOUNTER 2020-02-03 01:56 | Emergency (ER) | payer MEDICAID ==
[2020-02-03 02:05] VITALS: BP 164/102; PULSE 94
--- NOTE | 2020-02-03 02:15 | EDM.PDOC ---
ED HPI GENERAL MEDICAL PROBLEM - General Chief Complaint: Gastrointestinal Problem Stated Complaint: SICK Time Seen by Provider: 02/03/20 02:08 Source of Information: Reports: Patient History Limitations: Reports: No Limitations - History of Present Illness INITIAL COMMENTS - FREE TEXT/NARRATIVE: This 39 yo male patient reports to the ED with diffuse abdominal pain. The patient reports he has not had a bowel movement in the past 2 days. The patient reports he is feeling bloated. The patient reports he took a half of bottle of mag citrate last night at about 1800 and took a stool softener yesterday, but has not been able to have a bowel movement. The patient reports similar symptoms about 4 months ago. Duration: Day(s): (2), Constant, Getting Worse Location: Reports: Abdomen Quality: Reports: Ache, Same as Previous Episode Severity: Moderate Improves with: Reports: None Worsens with: Reports: None Context: Reports: Other Associated Symptoms: Reports: No Other Symptoms Treatments [employer]: Reports: Other Medication(s) (Mag Citrate and stool softener) - Related Data Allergies Allergy/AdvReac Type Severity Reaction Status Date / Time No Known Allergies Allergy Verified 02/03/20 02:01 Home Meds: Home Meds Fiber Drink 1 dose PO DAILY 10/29/19 [History] Sennosides/Docusate Sodium [Stool Softener-Laxative Tablet] 1 each PO BID [History] Past Medical History HEENT History: Reports: None Cardiovascular History: Reports: None Other Cardiovascular History: states heart rate can vary Respiratory History: Reports: Intubation, Previous Gastrointestinal History: Reports: Chronic Constipation, GERD Other Gastrointestinal History: previous feeding tube, no longer present Genitourinary History: Reports: UTI, Recurrent Other Genitourinary History: self cath several times a day as needed. Musculoskeletal History: Reports: Neck Pain, Chronic Other Musculoskeletal History: fractured neck at C6-C7 Neurological History: Reports: Brain Injury, Other (See Below) Other Neuro History: Head injury with accident, paraplegia Psychiatric History: Reports: Anxiety, Depression Endocrine/Metabolic History: Reports: None Hematologic History: Reports: None Immunologic History: Reports: None Oncologic (Cancer) History: Reports: None Dermatologic History: Reports: Cellulitis - Infectious Disease History Infectious Disease History: Reports: Chicken Pox - Past Surgical History Head Surgeries/Procedures: Reports: None Cardiovascular Surgical History: Reports: None Respiratory Surgical History: Reports: Other (See Below) Other Respiratory Surgeries/Procedures: hx of tracheostomy from accident, healed GI Surgical History: Reports: None Male Surgical History: Reports: None Neurological Surgical History: Reports: Other (See Below) Other Neurological Surgeries/Procedures: spinal repair/stabilzation post- accident Musculoskeletal Surgical History: Reports: Other (See Below) Other Musculoskeletal Surgeries/Procedures:: neck repair post accident, paraplegia Social & Family History - Family History Family Medical History: Noncontributory - Tobacco Use Smoking Status *Q: Current Every Day Smoker Years of Tobacco use: 20 Packs/Tins Daily: 0.1 Second Hand Smoke Exposure: Yes - Caffeine Use Caffeine Use: Reports: Coffee, Energy Drinks, Soda, Tea Caffeine Use Comment: 2 cans pop a day - Recreational Drug Use Recreational Drug Use: No - Living Situation & Occupation Living situation: Reports: with Significant Other Occupation: Disabled ED ROS GENERAL - Review of Systems Review Of Systems: Comprehensive ROS is negative, except as noted in HPI. ED EXAM, GI/ABD - Physical Exam Exam: See Below Exam Limited By: No Limitations General Appearance: Alert, WD/WN, Moderate Distress Eyes: Bilateral: Normal Appearance, EOMI Ears: Normal External Exam, Normal Canal, Hearing Grossly Normal, Normal TMs Nose: Normal Inspection Throat/Mouth: Normal Inspection, Normal Lips, Normal Teeth, Normal Gums, Normal Oropharynx, Normal Voice, No Airway Compromise Head: Atraumatic, Normocephalic Neck: Normal Inspection, Supple, Non-Tender, Full Range of Motion Respiratory/Chest: No Respiratory Distress, Lungs Clear, Normal Breath Sounds, No Accessory Muscle Use, Chest Non-Tender GI/Abdominal Exam: Tender (diffuse abdominal tenderness) (Male) Exam: Deferred Rectal (Males) Exam: Deferred Back Exam: Normal Inspection, Full Range of Motion, NT Extremities: Normal Inspection, Normal Range of Motion, Non-Tender, Normal Capillary Refill, No Pedal Edema Neurological: Alert, Oriented, CN II-XII Intact, Normal Cognition, Normal Gait, Normal Reflexes, No Motor/Sensory Deficits Psychiatric: Normal Affect, Normal Mood Skin Exam: Warm, Dry, Intact, Normal Color, No Rash Lymphatic: No Adenopathy Course - Vital Signs Last Recorded V/S: Last Vital Signs Temp 36.4 C 02/03/20 02:02 Pulse 94 02/03/20 02:02 Resp 16 02/03/20 02:02 BP 164/102 H 02/03/20 02:02 Pulse Ox 100 02/03/20 02:02 - Orders/Labs/Meds Orders: Active Orders 24 hr Category Date Time Status Enema [RC] ASDIRECTED Care 02/03/20 02:31 Ordered Abdomen 2V AP Flat Upright [CR] Urgent Exams 02/03/20 02:11 Ordered Meds: Medications Discontinued Medications Generic Name Dose Route Start Last Admin Trade Name Sho PRN Reason Stop Dose Admin Lorazepam 0.5 mg 02/03/20 02:33 02/03/20 02:41 Ativan PO 02/03/20 02:34 0.5 mg ONETIME ONE Administration Departure - Departure Time of Disposition: 03:20 Disposition: Home, Self-Care 01 Condition: Fair Clinical Impression: Constipation Qualifiers: Constipation type: other constipation type Qualified Code(s): K59.09 - Other constipation - Discharge Information *PRESCRIPTION DRUG MONITORING PROGRAM REVIEWED*: Not Applicable *COPY OF PRESCRIPTION DRUG MONITORING REPORT IN PATIENT NATALIE: Not Applicable Instructions: Constipation, Adult, [id number] Forms: ED Department Discharge Care Plan Goals: The patient was advised of the examination and x-ray results during the visit. The patient was given an enema while in the ED. The patient was discharged with a bottle of Magnesium Citrate to drink when he gets home. The patient was encouraged to take an adult dose of MiraLax daily for the next 3-4 days and increase his oral fluid intake. If the patient has any additional symptoms or concerns, the patient should either return to the emergency department or visit his primary care facility. Sepsis Event Note - Evaluation Sepsis Screening Result: No Definite Risk - Focused Exam Vital Signs: Vital Signs Temp Pulse Resp BP Pulse Ox 02/03/20 02:02 36.4 C 94 16 164/102 H 100 Date Exam was Performed: 02/03/20 Time Exam was Performed: 03:15 - My Orders Last 24 Hours: My Active Orders 02/03/20 02:11 Abdomen 2V AP Flat Upright [CR] Urgent 02/03/20 02:31 Enema [RC] ASDIRECTED - Assessment/Plan Last 24 Hours: My Active Orders 02/03/20 02:11 Abdomen 2V AP Flat Upright [CR] Urgent 02/03/20 02:31 Enema [RC] ASDIRECTED
[2020-02-03] MEDS ORDERED: LORazepam 0.5 MG Tab PO ONE (02:33)
[2020-02-03] MEDS ORDERED: Magnesium Citrate Solution 296 ML Bottle PO ONE (03:19)
== END 2020-02-03 03:35 | disposition home or self-care (01) ==
LOC: DL.ED 01:56
DX: K59.09 Other constipation (principal); F17.210 Nicotine dependence, cigarettes, uncomplicated
CPT/HCPCS: 74019; 99284; A9270

== ENCOUNTER 2020-02-28 06:37 | Emergency (ER) | payer MEDICAID ==
--- NOTE | 2020-02-28 07:00 | EDM.PDOC ---
ED HPI GENERAL MEDICAL PROBLEM - General Chief Complaint: Abdominal Pain Stated Complaint: Left sided abdominal pain, possible constipation. Time Seen by Provider: 02/28/20 07:00 Source of Information: Reports: Patient, Old Records, RN, RN Notes Reviewed History Limitations: Reports: No Limitations - History of Present Illness INITIAL COMMENTS - FREE TEXT/NARRATIVE: Pt arrives to ER from home by [facility] with c/o sudden onset of LUQ abdominal pain yesterday afternoon. Pt thought he was constipated and took a half bottle of his laxative without result, so he took some more around midnight. He has not had a stool for a couple days. States he is not passing gas. The pain has been worse after taking all the laxatives. Denies problems with urination, does self catheterization when needed. Denies fever, chills, N/V, diarrhea, or abdominal distention. Onset: Gradual Onset Date: 02/27/20 Duration: Constant Location: Reports: Abdomen Quality: Reports: Pressure, Other (Cramping) Severity: Severe Improves with: Reports: None Worsens with: Reports: None Associated Symptoms: Reports: No Other Symptoms - Related Data Allergies Allergy/AdvReac Type Severity Reaction Status Date / Time No Known Allergies Allergy Verified 02/28/20 06:52 Home Meds: Home Meds Sennosides/Docusate Sodium [Stool Softener-Laxative Tablet] 1 each PO BID [History] Past Medical History HEENT History: Reports: None Cardiovascular History: Reports: None Other Cardiovascular History: states heart rate can vary Respiratory History: Reports: Intubation, Previous Gastrointestinal History: Reports: Chronic Constipation, GERD Other Gastrointestinal History: previous feeding tube, no longer present Genitourinary History: Reports: UTI, Recurrent Other Genitourinary History: self cath several times a day as needed. Musculoskeletal History: Reports: Neck Pain, Chronic Other Musculoskeletal History: fractured neck at C6-C7 Neurological History: Reports: Brain Injury, Other (See Below) Other Neuro History: Head injury with accident, paraplegia Psychiatric History: Reports: Anxiety, Depression Endocrine/Metabolic History: Reports: None Hematologic History: Reports: None Immunologic History: Reports: None Oncologic (Cancer) History: Reports: None Dermatologic History: Reports: Cellulitis - Infectious Disease History Infectious Disease History: Reports: Chicken Pox - Past Surgical History Head Surgeries/Procedures: Reports: None Cardiovascular Surgical History: Reports: None Respiratory Surgical History: Reports: Other (See Below) Other Respiratory Surgeries/Procedures: hx of tracheostomy from accident, healed GI Surgical History: Reports: None Male Surgical History: Reports: None Neurological Surgical History: Reports: Other (See Below) Other Neurological Surgeries/Procedures: spinal repair/stabilzation post- accident Musculoskeletal Surgical History: Reports: Other (See Below) Other Musculoskeletal Surgeries/Procedures:: neck repair post accident, paraplegia Social & Family History - Family History Family Medical History: Noncontributory - Caffeine Use Caffeine Use: Reports: Coffee, Energy Drinks, Soda, Tea Caffeine Use Comment: 2 cans pop a day - Living Situation & Occupation Living situation: Reports: with Significant Other Occupation: Disabled ED ROS GENERAL - Review of Systems Review Of Systems: Comprehensive ROS is negative, except as noted in HPI. ED EXAM, GI/ABD - Physical Exam Exam: See Below Exam Limited By: No Limitations General Appearance: Alert, WD/WN, No Apparent Distress Eyes: Bilateral: Normal Appearance (No scleral icterus) Throat/Mouth: Normal Voice, No Airway Compromise Head: Atraumatic, Normocephalic Neck: Normal Inspection Respiratory/Chest: No Respiratory Distress, Lungs Clear, Normal Breath Sounds, No Accessory Muscle Use, Chest Non-Tender Cardiovascular: Regular Rate, Rhythm GI/Abdominal Exam: Soft, No Organomegaly, No Distention, Tender (LUQ), Abnormal Bowel Sounds (Hypoactive bowel sounds). No: Guarding, Rigid, Rebound (Male) Exam: Deferred Rectal (Males) Exam: Deferred Neurological: Alert, Oriented, Other (Chronic paraplegia) Psychiatric: Normal Mood Skin Exam: Warm, Dry Course - Vital Signs Last Recorded V/S: Last Vital Signs Temp 97.4 F 02/28/20 06:48 Pulse 71 02/28/20 06:48 Resp 16 02/28/20 06:48 BP 137/86 02/28/20 06:48 Pulse Ox 98 02/28/20 06:48 - Orders/Labs/Meds Orders: Active Orders 24 hr Category Date Time Status Enema [RC] ASDIRECTED Care 02/28/20 07:27 Active Labs: Laboratory Tests 02/28/20 02/28/20 Range/Units 07:29 07:29 WBC 7.1 (5.0-10.0) 10^3/uL RBC 4.84 (4.6-6.2) 10^6/uL Hgb 14.5 D (14.0-18.0) g/dL Hct 44.0 (40.0-54.0) % MCV 90.9 (80-100) fL MCH 30.0 (27.0-34.0) pg MCHC 33.0 (33.0-35.0) g/dL Plt Count 305 (150-450) 10^3/uL Neut % (Auto) 56.5 (42.2-75.2) % Lymph % (Auto) 30.2 (20.5-50.1) % [place] % (Auto) 8.5 H (2-8) % Eos % (Auto) 4.4 H (1.0-3.0) % Baso % (Auto) 0.4 (0.0-1.0) % Sodium 135 L (136-145) mmol/L Potassium 4.0 (3.5-5.1) mmol/L Chloride 98 (98-107) mmol/L Carbon Dioxide 33 H (21-32) mmol/L Anion Gap 8.0 (7-13) mEq/L BUN 13 (7-18) mg/dL Creatinine 1.01 (0.70-1.30) mg/dL Est Cr Clr Drug Dosing 99.17 mL/min Estimated GFR (MDRD) > 60 BUN/Creatinine Ratio 12.9 (No establ ref range) Glucose 97 (74-99) mg/dL Calcium 9.0 (8.5-10.1) mg/dL Total Bilirubin 0.3 (0.2-1.0) mg/dL AST 25 (15-37) U/L ALT 47 (16-63) U/L Alkaline Phosphatase 98 (46-116) U/L Total Protein 7.7 (6.4-8.2) g/dL Albumin 3.7 (3.4-5.0) g/dL Globulin 4.0 Albumin/Globulin Ratio 0.9 Amylase 79 (25-115) U/L Lipase 136 (73-393) U/L Meds: Medications Discontinued Medications Generic Name Dose Route Start Last Admin Trade Name Freq PRN Reason Stop Dose Admin Al Hydroxide/Mg Hydroxide 30 ml 02/28/20 07:18 02/28/20 07:30 Gi Cocktail PO 02/28/20 07:19 30 ml ONETIME ONE Administration Lactulose 30 gm 02/28/20 07:18 02/28/20 07:30 Cephulac PO 02/28/20 07:19 30 gm ONETIME ONE Administration - Radiology Interpretation Free Text/Narrative:: [facility] [place] [facility] Final Radiology Report Call: [phone] assistance Online chat: [email or web address] Name: JORDEN MENDENHALL Age: 39Years M Date: 02/28/2020 SSN: -- : [id number] Study: XR ABDOMEN 1 VIEW Requesting Physician: STEPHANIE SMITH Images: 1 Addl Studies: Provided Clinical History: Contrast: Contrast Medium: Contrast Amount: Contrast Method: CONFIDENTIALITY STATEMENT This report is intended only for use by the referring physician, and only in accordance with law. If you received this in error, call [phone]. Page 1 of 1 PROCEDURE INFORMATION: Exam: XR Abdomen, 1 View Exam date and time: 02/28/2020 7:04 AM Age: 39 years old Clinical indication: Abdominal pain; Other: Constipation TECHNIQUE: Imaging protocol: XR of the abdomen. Views: Frontal supine view of the abdomen. 1 View. COMPARISON: CR Abdomen 2V AP Flat Upright 02/03/2020 2:25 AM FINDINGS: Gastrointestinal tract: The small bowel is not significantly air-distended. Air and stool are present within large bowel. This includes moderate left-sided colonic stool. Bones/joints: Degenerative changes again involve the spine and hips. IMPRESSION: Nonspecific bowel gas pattern, including moderate left-sided colonic stool. Thank you for allowing us to participate in the care of your patient. Dictated and Authenticated by: Arthur Garcia MD 02/28/2020 7:30 AM Central Time ([place] & [place]) - Re-Assessments/Exams Free Text/Narrative Re-Assessment/Exam: 02/28/20 09:13 Pt had large hard BM, followed by large loose BM. The nurses complain that following the BM the pt would not stop masturbating, and they requested that he be discharged. Departure - Departure Time of Disposition: 09:15 Disposition: Home, Self-Care 01 Condition: Good Clinical Impression: Constipation due to neurogenic bowel - Discharge Information *PRESCRIPTION DRUG MONITORING PROGRAM REVIEWED*: No *COPY OF PRESCRIPTION DRUG MONITORING REPORT IN PATIENT NATALIE: No Instructions: Constipation, Adult, High-Fiber Diet Forms: ED Department Discharge Additional Instructions: Follow up in clinic if any further problems. Sepsis Event Note - Focused Exam Vital Signs: Vital Signs Temp Pulse Resp BP Pulse Ox 02/28/20 06:48 97.4 F 71 16 137/86 98 Date Exam was Performed: 02/28/20 Time Exam was Performed: 09:13 - My Orders Last 24 Hours: My Active Orders 02/28/20 07:27 Enema [RC] ASDIRECTED - Assessment/Plan Last 24 Hours: My Active Orders 02/28/20 07:27 Enema [RC] ASDIRECTED
[2020-02-28 07:04] VITALS: BP 137/86; PULSE 71
[2020-02-28] MEDS ORDERED: GI Cocktail Oral Solution 30 ML PO ONE (07:18)
[2020-02-28] MEDS ORDERED: Lactulose Soln 10 GM/15 ML 30 ML UD Cup PO ONE (07:18)
[2020-02-28 07:55] LABS: CHLORIDE,CL 98 mmol/L (98-107); SODIUM,NA 135 mmol/L (136-145)
== END 2020-02-28 09:28 | disposition home or self-care (01) ==
LOC: DL.ED 06:37
DX: K59.00 Constipation, unspecified (principal)
CPT/HCPCS: 36415; 74018; 80053; 82150; 83690; 85025; 99284; A9270

== ENCOUNTER 2020-03-22 21:52 | Emergency (ER) | payer MEDICAID ==
[2020-03-22 22:25] VITALS: BP 148/98; PULSE 85
[2020-03-22] MEDS ORDERED: LORazepam 1 MG Tab PO ONE (22:27)
[2020-03-22] MEDS ORDERED: Magnesium Citrate Solution 296 ML Bottle PO ONE (22:27)
--- NOTE | 2020-03-22 22:29 | CR ---
PROCEDURE INFORMATION: Exam: XR Abdomen, 1 View Exam date and time: 03/22/2020 10:10 PM Age: 39 years old Clinical indication: Abdominal pain; Generalized TECHNIQUE: Imaging protocol: XR of the abdomen. Views: Frontal supine view of the abdomen. 1 View. COMPARISON: CR Abdomen 1V Flat 02/28/2020 7:04 AM FINDINGS: Gastrointestinal tract: The stomach is not distended. No pathologically dilated small bowel loops are identified. There is a moderate volume of stool in the colon, primarily in the ascending colon and transverse colon. Intraperitoneal space: There is no gross free air. 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 Soft tissues: No abnormal soft tissue calcifications are identified. IMPRESSION: No acute intra-abdominal pathology is identified.
--- NOTE | 2020-03-22 22:32 | EDM.PDOC ---
ED HPI GENERAL MEDICAL PROBLEM - General Chief Complaint: Gastrointestinal Problem Stated Complaint: CONSTIPATED Time Seen by Provider: 03/22/20 22:28 Source of Information: Reports: Patient History Limitations: Reports: No Limitations - History of Present Illness INITIAL COMMENTS - FREE TEXT/NARRATIVE: c/o constipation and anxiety attack. Abdomen Pain Score (Numeric/FACES): 6 - Related Data Allergies Allergy/AdvReac Type Severity Reaction Status Date / Time No Known Allergies Allergy Verified 02/28/20 06:52 Home Meds: Home Meds Sennosides/Docusate Sodium [Stool Softener-Laxative Tablet] 1 each PO BID [History] Past Medical History HEENT History: Reports: None Cardiovascular History: Reports: None Other Cardiovascular History: states heart rate can vary Respiratory History: Reports: Intubation, Previous Gastrointestinal History: Reports: Chronic Constipation, GERD Other Gastrointestinal History: previous feeding tube, no longer present Genitourinary History: Reports: UTI, Recurrent Other Genitourinary History: self cath several times a day as needed. Musculoskeletal History: Reports: Neck Pain, Chronic Other Musculoskeletal History: fractured neck at C6-C7 Neurological History: Reports: Brain Injury, Other (See Below) Other Neuro History: Head injury with accident, paraplegia Psychiatric History: Reports: Anxiety, Depression Endocrine/Metabolic History: Reports: None Hematologic History: Reports: None Immunologic History: Reports: None Oncologic (Cancer) History: Reports: None Dermatologic History: Reports: Cellulitis - Infectious Disease History Infectious Disease History: Reports: Chicken Pox - Past Surgical History Head Surgeries/Procedures: Reports: None Cardiovascular Surgical History: Reports: None Respiratory Surgical History: Reports: Other (See Below) Other Respiratory Surgeries/Procedures: hx of tracheostomy from accident, healed GI Surgical History: Reports: None Male Surgical History: Reports: None Neurological Surgical History: Reports: Other (See Below) Other Neurological Surgeries/Procedures: spinal repair/stabilzation post- accident Musculoskeletal Surgical History: Reports: Other (See Below) Other Musculoskeletal Surgeries/Procedures:: neck repair post accident, paraplegia Social & Family History - Family History Family Medical History: Noncontributory - Tobacco Use Smoking Status *Q: Current Every Day Smoker Years of Tobacco use: 18 Packs/Tins Daily: 0.2 - Caffeine Use Caffeine Use: Reports: None Caffeine Use Comment: 2 cans pop a day - Recreational Drug Use Recreational Drug Use: No - Living Situation & Occupation Living situation: Reports: with Significant Other Occupation: Disabled ED ROS GENERAL - Review of Systems Review Of Systems: Comprehensive ROS is negative, except as noted in HPI. ED EXAM, GI/ABD - Physical Exam Exam: See Below Exam Limited By: No Limitations General Appearance: Alert, WD/WN, Anxious. No: Active Emesis Ears: Hearing Grossly Normal Throat/Mouth: Normal Voice, No Airway Compromise Head: Atraumatic Neck: Non-Tender, Full Range of Motion Respiratory/Chest: No Respiratory Distress GI/Abdominal Exam: Soft, Tender, Other (generalized discomfort). No: Distended , Guarding, Rigid, Rebound Neurological: Alert, Oriented, Normal Cognition, Normal Gait, No Motor/Sensory Deficits Psychiatric: Anxious, Flat Affect, Tearful Skin Exam: Warm, Dry, Normal Color Lymphatic: No Adenopathy Course - Vital Signs Last Recorded V/S: Last Vital Signs Temp 36.1 C 03/22/20 22:17 Pulse 85 03/22/20 22:17 Resp 19 03/22/20 22:17 BP 148/98 H 03/22/20 22:17 Pulse Ox 98 03/22/20 22:17 - Orders/Labs/Meds Meds: Medications Discontinued Medications Generic Name Dose Route Start Last Admin Trade Name Freq PRN Reason Stop Dose Admin Lorazepam 1 mg 03/22/20 22:27 Ativan PO 03/22/20 22:28 ONETIME ONE Magnesium Citrate 296 ml 03/22/20 22:27 Citrate Of Magnesia PO 03/22/20 22:28 ONETIME ONE - Re-Assessments/Exams Free Text/Narrative Re-Assessment/Exam: 03/22/20 22:34 results discussed with pt. Departure - Departure Time of Disposition: 22:34 Disposition: Home, Self-Care 01 Condition: Good Clinical Impression: Anxiety disorder Constipation Qualifiers: Constipation type: slow transit constipation Qualified Code(s): K59.01 - Slow transit constipation - Discharge Information Instructions: Constipation, Adult, Doey-ol-Pnze Forms: ED Department Discharge Additional Instructions: 1) no solid foods next 48 hours 2) have jello, prune juice Sepsis Event Note - Evaluation Sepsis Screening Result: No Definite Risk - Focused Exam Vital Signs: Vital Signs Temp Pulse Resp BP Pulse Ox 03/22/20 22:17 36.1 C 85 19 148/98 H 98 Date Exam was Performed: 03/22/20 Time Exam was Performed: 22:33
== END 2020-03-22 22:40 | disposition home or self-care (01) ==
LOC: DL.ED 21:52
DX: F41.9 Anxiety disorder, unspecified (principal); K59.01 Slow transit constipation; F17.210 Nicotine dependence, cigarettes, uncomplicated
CPT/HCPCS: 74018; 99283; A9270-GY

== ENCOUNTER 2020-05-25 13:18 | Emergency (ER) | payer MEDICAID ==
--- NOTE | 2020-05-25 13:58 | CR ---
PROCEDURE INFORMATION: Exam: XR Chest, 1 View Exam date and time: 05/25/2020 1:42 PM Age: 39 years old Clinical indication: Other: Chest pain TECHNIQUE: Imaging protocol: XR of the chest Views: 1 view. COMPARISON: No relevant prior studies available. FINDINGS: Lungs: Lungs are hyperinflated but clear. Pleural space: Unremarkable. No pleural effusion. No pneumothorax. Heart/Mediastinum: Unremarkable. No cardiomegaly. Bones/joints: Patient has evidence lower cervical fusion. IMPRESSION: No evidence of acute pulmonary disease.
--- NOTE | 2020-05-25 13:59 | CR ---
PROCEDURE INFORMATION: Exam: XR Abdomen, 1 View Exam date and time: 05/25/2020 1:28 PM Age: 39 years old Clinical indication: Other: Abdominal pain TECHNIQUE: Imaging protocol: XR of the abdomen. Views: Frontal supine view of the abdomen. 1 View. COMPARISON: CR Abdomen 1V Flat 03/22/2020 10:10 PM FINDINGS: Gastrointestinal tract: Normal. No bowel dilation. Bones/joints: Degenerative changes seen in the lower lumbar spine at L5-S1. There is mild degenerative changes involving both hips as well. IMPRESSION: No acute findings. No change from prior exam.
[2020-05-25 14:17] VITALS: BP 139/91; PULSE 101
[2020-05-25 14:21] LABS: ANION GAP 11.4 mEq/L (7-13); CHLORIDE,CL 101 mmol/L (98-107); SODIUM,NA 137 mmol/L (136-145)
[2020-05-25] MEDS ORDERED: Dicyclomine 20 MG/2 ML SDV IM ONE (14:51)
[2020-05-25] MEDS ORDERED: Lactulose Soln 10 GM/15 ML 30 ML UD Cup PO ONE (14:52)
--- NOTE | 2020-05-25 15:10 | EDM.PDOC ---
Scribed by Cathy Gipson 05/25/20 1510 for Edna Casiano MD ED HPI GENERAL MEDICAL PROBLEM - General Chief Complaint: Abdominal Pain Stated Complaint: AMBULANCE Time Seen by Provider: 05/25/20 13:45 Source of Information: Reports: Patient, RN, RN Notes Reviewed History Limitations: Reports: No Limitations - History of Present Illness INITIAL COMMENTS - FREE TEXT/NARRATIVE: Patient presents to the ED with [facility] stating he took methamphetamine 3 days ago. He also has abdominal pain felt like something popped on his left side. This started 1 hour ago and radiates to back and burning. Patient had a bowel movement last night. Onset: Today Duration: Constant Location: Reports: Abdomen Quality: Reports: Ache Severity: Severe Improves with: Reports: None Worsens with: Reports: None Associated Symptoms: Reports: No Other Symptoms Bilateral Abdominal Pain Score (Numeric/FACES): 10 - Related Data Allergies Allergy/AdvReac Type Severity Reaction Status Date / Time No Known Allergies Allergy Verified 05/25/20 14:22 Home Meds: Home Meds Sennosides/Docusate Sodium [Stool Softener-Laxative Tablet] 1 each PO BID 10/29/19 [History] Past Medical History HEENT History: Reports: None Cardiovascular History: Reports: None Other Cardiovascular History: states heart rate can vary Respiratory History: Reports: Intubation, Previous Gastrointestinal History: Reports: Chronic Constipation, GERD Other Gastrointestinal History: previous feeding tube, no longer present Genitourinary History: Reports: UTI, Recurrent Other Genitourinary History: self cath several times a day as needed. Musculoskeletal History: Reports: Neck Pain, Chronic Other Musculoskeletal History: fractured neck at C6-C7 Neurological History: Reports: Brain Injury, Other (See Below) Other Neuro History: Head injury with accident, paraplegia Psychiatric History: Reports: Anxiety, Depression Endocrine/Metabolic History: Reports: None Hematologic History: Reports: None Immunologic History: Reports: None Oncologic (Cancer) History: Reports: None Dermatologic History: Reports: Cellulitis - Infectious Disease History Infectious Disease History: Reports: Chicken Pox - Past Surgical History Head Surgeries/Procedures: Reports: None Cardiovascular Surgical History: Reports: None Respiratory Surgical History: Reports: Other (See Below) Other Respiratory Surgeries/Procedures: hx of tracheostomy from accident, healed GI Surgical History: Reports: None Male Surgical History: Reports: None Neurological Surgical History: Reports: Other (See Below) Other Neurological Surgeries/Procedures: spinal repair/stabilzation post- accident Musculoskeletal Surgical History: Reports: Other (See Below) Other Musculoskeletal Surgeries/Procedures:: neck repair post accident, paraplegia Social & Family History - Family History Family Medical History: Noncontributory - Caffeine Use Caffeine Use: Reports: None Caffeine Use Comment: 2 cans pop a day - Living Situation & Occupation Living situation: Reports: with Significant Other Occupation: Disabled ED ROS GENERAL - Review of Systems Review Of Systems: Comprehensive ROS is negative, except as noted in HPI. ED EXAM, GI/ABD - Physical Exam Exam: See Below Exam Limited By: No Limitations General Appearance: Alert, WD/WN, No Apparent Distress Respiratory/Chest: No Respiratory Distress, Lungs Clear, Normal Breath Sounds, No Accessory Muscle Use, Chest Non-Tender Cardiovascular: Normal Peripheral Pulses, Regular Rate, Rhythm, No Edema, No Gallop, No JVD, No Murmur, No Rub GI/Abdominal Exam: Tender (left side/flank. ), Other (no masses). No: Guarding, Rebound (Male) Exam: Other (self cath) Psychiatric: Normal Affect Skin Exam: Warm, Dry Course - Vital Signs Last Recorded V/S: Last Vital Signs Temp 98.1 F 05/25/20 13:45 Pulse 101 H 05/25/20 13:45 Resp 20 05/25/20 13:45 BP 139/91 H 05/25/20 13:45 Pulse Ox 98 05/25/20 13:45 - Orders/Labs/Meds Orders: Active Orders 24 hr Category Date Time Status CULTURE URINE [RM] Stat Lab 05/25/20 14:24 Received Labs: Laboratory Tests 05/25/20 05/25/20 05/25/20 Range/Units 14:00 14:00 14:24 WBC 6.5 (5.0-10.0) 10^3/uL RBC 4.98 (4.6-6.2) 10^6/uL Hgb 14.9 (14.0-18.0) g/dL Hct 45.0 (40.0-54.0) % MCV 90.4 (80-100) fL MCH 29.9 (27.0-34.0) pg MCHC 33.1 (33.0-35.0) g/dL Plt Count 297 (150-450) 10^3/uL Neut % (Auto) 57.5 (42.2-75.2) % Lymph % (Auto) 32.5 (20.5-50.1) % [place] % (Auto) 7.3 (2-8) % Eos % (Auto) 2.2 (1.0-3.0) % Baso % (Auto) 0.5 (0.0-1.0) % Sodium 137 (136-145) mmol/L Potassium 4.4 (3.5-5.1) mmol/L Chloride 101 (98-107) mmol/L Carbon Dioxide 29 (21-32) mmol/L Anion Gap 11.4 (7-13) mEq/L BUN 16 (7-18) mg/dL Creatinine 0.86 (0.70-1.30) mg/dL Est Cr Clr Drug Dosing TNP Estimated GFR (MDRD) > 60 BUN/Creatinine Ratio 18.6 (No establ ref range) Glucose 95 (74-99) mg/dL Calcium 8.9 (8.5-10.1) mg/dL Total Bilirubin 0.5 (0.2-1.0) mg/dL AST 27 (15-37) U/L ALT 44 (16-63) U/L Alkaline Phosphatase 97 (46-116) U/L Total Protein 7.7 (6.4-8.2) g/dL Albumin 3.7 (3.4-5.0) g/dL Globulin 4.0 Albumin/Globulin Ratio 0.9 Urine Color Yellow (YELLOW) Urine Appearance Cloudy (CLEAR) Urine pH 7.0 (5.0-9.0) Ur Specific [place] 1.015 (1.005-1.030) Urine Protein Negative (NEGATIVE) Urine Glucose (UA) Negative (NEGATIVE) Urine Ketones Negative (NEGATIVE) Urine Occult Blood Negative (NEGATIVE) Urine Nitrite Positive H (NEGATIVE) Urine Bilirubin Negative (NEGATIVE) Urine Urobilinogen 1.0 (0.2-1.0) mg/dL Ur Leukocyte Esterase Small H (NEGATIVE) Urine RBC 0-5 /HPF Urine WBC 10-20 H (0-5/HPF) /HPF Ur Epithelial Cells Few (NOT SEEN) /HPF Amorphous Sediment Few (NOT SEEN) /HPF Urine Bacteria Many H (0-FEW/HPF) /HPF Urine Mucus Few H (NOT SEEN) /LPF Urine Opiates Screen (NEGATIVE) Ur Oxycodone Screen (NEGATIVE) Urine Methadone Screen (NEGATIVE) Ur Barbiturates Screen (NEGATIVE) U Tricyclic Antidepress (NEGATIVE) Ur Phencyclidine Scrn (NEGATIVE) Ur Amphetamine Screen (NEGATIVE) U Methamphetamines Scrn (NEGATIVE) Urine MDMA Screen (NEGATIVE) U Benzodiazepines Scrn (NEGATIVE) Urine Cocaine Screen (NEGATIVE) U Marijuana (THC) Screen (NEGATIVE) 05/25/20 Range/Units 14:24 WBC (5.0-10.0) 10^3/uL RBC (4.6-6.2) 10^6/uL Hgb (14.0-18.0) g/dL Hct (40.0-54.0) % MCV (80-100) fL MCH (27.0-34.0) pg MCHC (33.0-35.0) g/dL Plt Count (150-450) 10^3/uL Neut % (Auto) (42.2-75.2) % Lymph % (Auto) (20.5-50.1) % [place] % (Auto) (2-8) % Eos % (Auto) (1.0-3.0) % Baso % (Auto) (0.0-1.0) % Sodium (136-145) mmol/L Potassium (3.5-5.1) mmol/L Chloride (98-107) mmol/L Carbon Dioxide (21-32) mmol/L Anion Gap (7-13) mEq/L BUN (7-18) mg/dL Creatinine (0.70-1.30) mg/dL Est Cr Clr Drug Dosing Estimated GFR (MDRD) BUN/Creatinine Ratio (No establ ref range) Glucose (74-99) mg/dL Calcium (8.5-10.1) mg/dL Total Bilirubin (0.2-1.0) mg/dL AST (15-37) U/L ALT (16-63) U/L Alkaline Phosphatase (46-116) U/L Total Protein (6.4-8.2) g/dL Albumin (3.4-5.0) g/dL Globulin Albumin/Globulin Ratio Urine Color (YELLOW) Urine Appearance (CLEAR) Urine pH (5.0-9.0) Ur Specific [place] (1.005-1.030) Urine Protein (NEGATIVE) Urine Glucose (UA) (NEGATIVE) Urine Ketones (NEGATIVE) Urine Occult Blood (NEGATIVE) Urine Nitrite (NEGATIVE) Urine Bilirubin (NEGATIVE) Urine Urobilinogen (0.2-1.0) mg/dL Ur Leukocyte Esterase (NEGATIVE) Urine RBC /HPF Urine WBC (0-5/HPF) /HPF Ur Epithelial Cells (NOT SEEN) /HPF Amorphous Sediment (NOT SEEN) /HPF Urine Bacteria (0-FEW/HPF) /HPF Urine Mucus (NOT SEEN) /LPF Urine Opiates Screen Negative (NEGATIVE) Ur Oxycodone Screen Negative (NEGATIVE) Urine Methadone Screen Negative (NEGATIVE) Ur Barbiturates Screen Negative (NEGATIVE) U Tricyclic Antidepress Negative (NEGATIVE) Ur Phencyclidine Scrn Negative (NEGATIVE) Ur Amphetamine Screen Positive H (NEGATIVE) U Methamphetamines Scrn Positive H (NEGATIVE) Urine MDMA Screen Positive H (NEGATIVE) U Benzodiazepines Scrn Negative (NEGATIVE) Urine Cocaine Screen Negative (NEGATIVE) U Marijuana (THC) Screen Positive H (NEGATIVE) Meds: Medications Discontinued Medications Generic Name Dose Route Start Last Admin Trade Name Freq PRN Reason Stop Dose Admin Dicyclomine HCl 20 mg 05/25/20 14:51 05/25/20 15:09 Bentyl IM 05/25/20 14:52 20 mg ONETIME ONE Administration Lactulose 40 gm 05/25/20 14:52 05/25/20 15:09 Cephulac PO 05/25/20 14:53 40 gm ONETIME ONE Administration - Radiology Interpretation Free Text/Narrative:: Abdomen x-ray: No acute findings. No change from prior exam. See rad report. Chest x-ray: No evidence of acute pulmonary disease. See rad report. - Re-Assessments/Exams Free Text/Narrative Re-Assessment/Exam: Patient has no urinary symptoms and straight cath on a regular basis because of neurogenic bladder. This is mostly colonized. Departure - Departure Time of Disposition: 14:55 Disposition: Home, Self-Care 01 Condition: Good Clinical Impression: Drug induced constipation Abdominal pain Qualifiers: Abdominal location: left lower quadrant Qualified Code(s): R10.32 - Left lower quadrant pain - Discharge Information *PRESCRIPTION DRUG MONITORING PROGRAM REVIEWED*: Not Applicable *COPY OF PRESCRIPTION DRUG MONITORING REPORT IN PATIENT NATALIE: Not Applicable Instructions: Abdominal Pain, Adult, Constipation, Adult, [id number] Forms: ED Department Discharge Additional Instructions: Lactulose po. Bentyl IM before discharge. Advised not to do drugs. Sepsis Event Note (ED) - Focused Exam Vital Signs: Vital Signs Temp Pulse Resp BP Pulse Ox 05/25/20 13:45 98.1 F 101 H 20 139/91 H 98 - My Orders Last 24 Hours: My Active Orders 05/25/20 14:24 CULTURE URINE [RM] Stat - Assessment/Plan Last 24 Hours: My Active Orders 05/25/20 14:24 CULTURE URINE [RM] Stat I have read and agree with the documentation that has been completed regarding this visit. By signing this record, I attest that the documentation was completed in my physical presence and is an accurate record of the encounter.
== END 2020-05-25 15:17 | disposition home or self-care (01) ==
LOC: DL.ED 13:18
DX: K59.03 Drug induced constipation (principal); T43.625A Adverse effect of amphetamines, initial encounter
CPT/HCPCS: 36415; 71045; 74018; 80053; 80305; 81001; 85025; 87086; 96372; 99284; A9270; J0500

== ENCOUNTER 2020-06-17 22:25 | Emergency (ER) | payer MEDICAID ==
[2020-06-17] MEDS ORDERED: Lactulose Soln 10 GM/15 ML 30 ML UD Cup PO ONE ×2 (22:26)
[2020-06-17 22:44] VITALS: BP 133/95; PULSE 101
--- NOTE | 2020-06-17 22:46 | EDM.PDOC ---
ED HPI GENERAL MEDICAL PROBLEM - General Chief Complaint: Abdominal Pain Stated Complaint: STOMACH PAIN [id number] Time Seen by Provider: 06/17/20 22:46 Source of Information: Reports: Patient, RN, RN Notes Reviewed History Limitations: Reports: No Limitations - History of Present Illness INITIAL COMMENTS - FREE TEXT/NARRATIVE: Patient presents to ER with complaint of abdominal pain. Patient states he took MiraLAX at home, did have 1 bowel movement prior to coming to the ER. Patient states he was concerned that he possibly had a UTI as he straight caths himself due to neurogenic bladder. Patient states he does have difficulty with bowel movements as well. Patient states the last time he was here the green medicine they gave him for bowel movement helped quite a bit. Onset: Today Abdomen Pain Score (Numeric/FACES): 5 - Related Data Allergies Allergy/AdvReac Type Severity Reaction Status Date / Time No Known Allergies Allergy Verified 05/25/20 14:22 Home Meds: Home Meds Sennosides/Docusate Sodium [Stool Softener-Laxative Tablet] 1 each PO BID 10/29/19 [History] Past Medical History HEENT History: Reports: None Cardiovascular History: Reports: None Other Cardiovascular History: states heart rate can vary Respiratory History: Reports: Intubation, Previous Gastrointestinal History: Reports: Chronic Constipation, GERD Other Gastrointestinal History: previous feeding tube, no longer present Genitourinary History: Reports: UTI, Recurrent Other Genitourinary History: self cath several times a day as needed. Musculoskeletal History: Reports: Neck Pain, Chronic Other Musculoskeletal History: fractured neck at C6-C7 Neurological History: Reports: Brain Injury, Other (See Below) Other Neuro History: Head injury with accident, paraplegia Psychiatric History: Reports: Anxiety, Depression Endocrine/Metabolic History: Reports: None Hematologic History: Reports: None Immunologic History: Reports: None Oncologic (Cancer) History: Reports: None Dermatologic History: Reports: Cellulitis - Infectious Disease History Infectious Disease History: Reports: Chicken Pox - Past Surgical History Head Surgeries/Procedures: Reports: None Cardiovascular Surgical History: Reports: None Respiratory Surgical History: Reports: Other (See Below) Other Respiratory Surgeries/Procedures: hx of tracheostomy from accident, healed GI Surgical History: Reports: None Male Surgical History: Reports: None Neurological Surgical History: Reports: Other (See Below) Other Neurological Surgeries/Procedures: spinal repair/stabilzation post- accident Musculoskeletal Surgical History: Reports: Other (See Below) Other Musculoskeletal Surgeries/Procedures:: neck repair post accident, paraplegia Social & Family History - Family History Family Medical History: Noncontributory - Caffeine Use Caffeine Use: Reports: None Caffeine Use Comment: 2 cans pop a day - Living Situation & Occupation Living situation: Reports: with Significant Other Occupation: Disabled ED ROS GENERAL - Review of Systems Review Of Systems: Comprehensive ROS is negative, except as noted in HPI. ED EXAM, GI/ABD - Physical Exam Exam: See Below Exam Limited By: No Limitations General Appearance: Alert, WD/WN, No Apparent Distress, Anxious Eyes: Bilateral: Normal Appearance, EOMI Ears: Normal External Exam, Hearing Grossly Normal Nose: Normal Inspection Throat/Mouth: Normal Inspection, Normal Voice, No Airway Compromise Head: Atraumatic, Normocephalic Neck: Normal Inspection Respiratory/Chest: No Respiratory Distress, Lungs Clear, Normal Breath Sounds, No Accessory Muscle Use, Chest Non-Tender, Decreased Breath Sounds Cardiovascular: Normal Peripheral Pulses, Regular Rate, Rhythm, No Edema, No Gallop, No JVD, No Murmur, No Rub GI/Abdominal Exam: Normal Bowel Sounds, Soft, No Organomegaly, No Distention, No Abnormal Bruit, No Mass, Pelvis Stable, Tender (mildly tender to LLQ) (Male) Exam: Deferred Rectal (Males) Exam: Deferred Back Exam: Normal Inspection, Full Range of Motion, Other (Able to pull himself up with arms) Extremities: Normal Inspection, Other (Paralyzed from the waist down) Neurological: Alert, Oriented, CN II-XII Intact, Normal Cognition Psychiatric: Normal Affect, Normal Mood, Anxious Skin Exam: Warm, Dry, Intact, Normal Color, No Rash Lymphatic: No Adenopathy Course - Vital Signs Last Recorded V/S: Last Vital Signs Temp 97.8 F 06/17/20 22:43 Pulse 101 H 06/17/20 22:43 Resp 16 06/17/20 22:43 BP 133/95 H 06/17/20 22:43 Pulse Ox 99 06/17/20 22:43 - Orders/Labs/Meds Orders: Active Orders 24 hr Category Date Time Status CULTURE URINE [RM] Stat Lab 06/17/20 23:03 Received Labs: Laboratory Tests 06/17/20 06/17/20 Range/Units 23:03 23:03 Urine Color Yellow (YELLOW) Urine Appearance Clear (CLEAR) Urine pH 6.5 (5.0-9.0) Ur Specific [place] 1.025 (1.005-1.030) Urine Protein Negative (NEGATIVE) Urine Glucose (UA) Negative (NEGATIVE) Urine Ketones Negative (NEGATIVE) Urine Occult Blood Negative (NEGATIVE) Urine Nitrite Negative (NEGATIVE) Urine Bilirubin Negative (NEGATIVE) Urine Urobilinogen 0.2 (0.2-1.0) mg/dL Ur Leukocyte Esterase Trace H (NEGATIVE) Urine RBC Not seen /HPF Urine WBC 5-10 H (0-5/HPF) /HPF Ur Epithelial Cells Rare (NOT SEEN) /HPF Amorphous Sediment Few (NOT SEEN) /HPF Urine Bacteria Few (0-FEW/HPF) /HPF Urine Mucus Few H (NOT SEEN) /LPF Urine Opiates Screen Negative (NEGATIVE) Ur Oxycodone Screen Negative (NEGATIVE) Urine Methadone Screen Negative (NEGATIVE) Ur Barbiturates Screen Negative (NEGATIVE) U Tricyclic Antidepress Negative (NEGATIVE) Ur Phencyclidine Scrn Negative (NEGATIVE) Ur Amphetamine Screen Positive H (NEGATIVE) U Methamphetamines Scrn Positive H (NEGATIVE) Urine MDMA Screen Positive H (NEGATIVE) U Benzodiazepines Scrn Negative (NEGATIVE) Urine Cocaine Screen Negative (NEGATIVE) U Marijuana (THC) Screen Positive H (NEGATIVE) - Radiology Interpretation Free Text/Narrative:: Abdominal flat and upright xray: PROCEDURE INFORMATION: Exam: XR Abdomen, 2 Views Exam date and time: 06/17/2020 10:51 PM Age: 39 years old Clinical indication: Constipation; Abdominal pain; Additional info: Abdominal pain, HX constipation TECHNIQUE: Imaging protocol: XR of the abdomen. Views: 2 Views. COMPARISON: CR Abdomen 1V Flat 05/25/2020 1:28 PM FINDINGS: Gastrointestinal tract: Gas and stool are present in the colon. No dilated bowel loops. Intraperitoneal space: Normal. No free air. Bones/joints: Unremarkable for age. IMPRESSION: 1. Nonobstructive bowel gas pattern. 2. No significant interval change when compared to the CR Abdomen 1V Flat 05/25/2020 1:28 PM. Thank you for allowing us to participate in the care of your patient. Dictated and Authenticated by: Lamin Florez MD 06/17/2020 11:22 PM Central Time ([place] & [place]) See rad report Departure - Departure Time of Disposition: 23:44 Disposition: Home, Self-Care 01 Condition: Good Clinical Impression: Bladder dysfunction Constipation Qualifiers: Constipation type: slow transit constipation Qualified Code(s): K59.01 - Slow transit constipation - Discharge Information *PRESCRIPTION DRUG MONITORING PROGRAM REVIEWED*: No *COPY OF PRESCRIPTION DRUG MONITORING REPORT IN PATIENT NATALIE: No Instructions: Abdominal Pain, Adult, [id number], Constipation, Adult, [id number] Forms: ED Department Discharge Additional Instructions: Continue to use MiraLAX at home for constipation as directed Follow-up with your primary care provider Sepsis Event Note (ED) - Evaluation Sepsis Screening Result: No Definite Risk - Focused Exam Vital Signs: Vital Signs Temp Pulse Resp BP Pulse Ox 06/17/20 22:43 97.8 F 101 H 16 133/95 H 99 - My Orders Last 24 Hours: My Active Orders 06/17/20 23:03 CULTURE URINE [RM] Stat - Assessment/Plan Last 24 Hours: My Active Orders 06/17/20 23:03 CULTURE URINE [RM] Stat
--- NOTE | 2020-06-17 23:23 | CR ---
PROCEDURE INFORMATION: Exam: XR Abdomen, 2 Views Exam date and time: 06/17/2020 10:51 PM Age: 39 years old Clinical indication: Constipation; Abdominal pain; Additional info: Abdominal pain, HX constipation TECHNIQUE: Imaging protocol: XR of the abdomen. Views: 2 Views. COMPARISON: CR Abdomen 1V Flat 05/25/2020 1:28 PM FINDINGS: Gastrointestinal tract: Gas and stool are present in the colon. No dilated bowel loops. Intraperitoneal space: Normal. No free air. Bones/joints: Unremarkable for age. IMPRESSION: 1. Nonobstructive bowel gas pattern. 2. No significant interval change when compared to the CR Abdomen 1V Flat 05/25/2020 1:28 PM.
[2020-06-17] MEDS ORDERED: Lactulose Soln 10 GM/15 ML 30 ML UD Cup ONE (23:46)
== END 2020-06-17 23:49 | disposition home or self-care (01) ==
LOC: DL.ED 22:25
DX: N31.9 Neuromuscular dysfunction of bladder, unspecified (principal); K59.01 Slow transit constipation; G82.20 Paraplegia, unspecified
CPT/HCPCS: 74019; 80305-QW; 81001; 87086; 87088; 87186; 99284-25; A9270-GY

== ENCOUNTER 2020-06-25 06:35 | Emergency (ER) | payer MEDICAID ==
[2020-06-25 06:43] VITALS: BP 135/98; PULSE 104
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
[2020-06-25 07:15] LABS: ANION GAP 11.9 mEq/L (7-13); CHLORIDE,CL 103 mmol/L (98-107); SODIUM,NA 140 mmol/L (136-145)
[2020-06-25] MEDS ORDERED: Lactulose Soln 10 GM/15 ML 30 ML UD Cup PO ONE (07:17)
--- NOTE | 2020-06-25 07:22 | CR ---
PROCEDURE INFORMATION: Exam: XR Abdomen, 2 Views Exam date and time: 06/25/2020 6:53 AM Age: 40 years old Clinical indication: Abdominal pain TECHNIQUE: Imaging protocol: XR of the abdomen. Views: 2 Views. COMPARISON: 1. CR Abdomen 2V AP Flat Upright 06/17/2020 10:51 PM 2. CR Abdomen 1V Flat 05/25/2020 1:28 PM 3[address] Report from CT abdomen pelvis 11/04/2019 (images not available) FINDINGS: Gastrointestinal tract: A moderate amount of well-formed stool is present within the colon. There is no evidence obstruction. An appendicolith described on the 11/04/2019 CT scan cannot be appreciated on radiographs. Intraperitoneal space: Normal. No free air. Bones/joints: Increased density at L5-S1 suggests facet degenerative change. The hip joint are mildly narrowed. IMPRESSION: Moderate amount of well-formed stool in the colon.
[2020-06-25] MEDS ORDERED: Magnesium Citrate Solution 296 ML Bottle PO ONE (08:57)
[2020-06-25] MEDS ORDERED: Bisacodyl 10 MG Supp RECTAL ONE (08:57)
== END 2020-06-25 10:43 | disposition left against medical advice (07) ==
LOC: DL.ED 06:35
DX: K59.00 Constipation, unspecified (principal); K59.2 Neurogenic bowel, not elsewhere classified; F15.10 Other stimulant abuse, uncomplicated; F17.210 Nicotine dependence, cigarettes, uncomplicated; R00.0 Tachycardia, unspecified; G82.20 Paraplegia, unspecified
CPT/HCPCS: 36415; 74019; 80053; 80305-QW; 81003; 82150; 83690; 85025; 99284-25; A9270-GY

== ENCOUNTER 2020-06-29 17:13 | Emergency (ER) | payer MEDICAID ==
[2020-06-29 18:02] VITALS: BP 142/96; PULSE 75
--- NOTE | 2020-06-29 18:39 | CR ---
PROCEDURE INFORMATION: Exam: XR Abdomen, 1 View Exam date and time: 06/29/2020 6:29 PM Age: 40 years old Clinical indication: Other: Pain; Additional info: Constipated TECHNIQUE: Imaging protocol: XR of the abdomen. Views: Frontal supine view of the abdomen. 1 View. COMPARISON: CR Abdomen 2V AP Flat Upright 06/25/2020 6:53 AM FINDINGS: Gastrointestinal tract: Moderate amount of stool is present within the colon. Mild constipation is possible. No obstruction is present. Bones/joints: Unremarkable. IMPRESSION: Mild constipation without obstruction.
[2020-06-29] MEDS ORDERED: Magnesium Citrate Solution 296 ML Bottle PO ONE (18:47)
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
== END 2020-06-29 21:00 | disposition home or self-care (01) ==
LOC: DL.ED 17:13
DX: K59.00 Constipation, unspecified (principal)
CPT/HCPCS: 74018; 80305; 81001; 99283; A9270

== ENCOUNTER 2021-01-04 01:38 | Emergency (ER) | payer MEDICAID ==
--- NOTE | 2021-01-04 02:54 | CR ---
PROCEDURE INFORMATION: Exam: XR Abdomen Exam date and time: 01/04/2021 2:18 AM Age: 40 years old Clinical indication: Other: Pain; Additional info: Abdominal pain ? constipation TECHNIQUE: Imaging protocol: XR of the abdomen. Views: Frontal supine view of the abdomen. 1 View. COMPARISON: CR Abdomen 1V Flat 06/29/2020 6:29 PM FINDINGS: Gastrointestinal tract: Normal. No bowel dilation. Bones/joints: Unremarkable. IMPRESSION: No acute findings.
--- NOTE | 2021-01-04 02:55 | EDM.PDOC ---
ED HPI GENERAL MEDICAL PROBLEM - General Chief Complaint: Genitourinary Problem Stated Complaint: AMBULANCE Time Seen by Provider: 01/04/21 02:40 Source of Information: Reports: Patient History Limitations: Reports: No Limitations - History of Present Illness INITIAL COMMENTS - FREE TEXT/NARRATIVE: This 40 yo male patient reports to the ED with abdominal pain. The patient repor ts his abdominal pain started last evening (after eating) and has continued to get worse. The patient reports his pain has been getting worse. The patient is a paraplegic and thought it was initially urinary problems. Upon arrival in the ED, nursing staff placed a catheter with a small amount of urine. The patient continued to report increased pain. Onset Date: 01/03/21 Duration: Constant, Getting Worse Location: Reports: Abdomen (diffuse) Quality: Reports: Ache Severity: Moderate Improves with: Reports: None Worsens with: Reports: None Context: Reports: Other Associated Symptoms: Reports: No Other Symptoms - Related Data Allergies Allergy/AdvReac Type Severity Reaction Status Date / Time No Known Allergies Allergy Verified 06/25/20 06:39 Home Meds: Home Meds Sennosides/Docusate Sodium [Stool Softener-Laxative Tablet] 1 each PO BID 10/29/19 [History] Past Medical History HEENT History: Reports: None Cardiovascular History: Reports: None Other Cardiovascular History: states heart rate can vary Respiratory History: Reports: Intubation, Previous Gastrointestinal History: Reports: Chronic Constipation, GERD Other Gastrointestinal History: previous feeding tube, no longer present Genitourinary History: Reports: UTI, Recurrent Other Genitourinary History: self cath several times a day as needed. Musculoskeletal History: Reports: Neck Pain, Chronic Other Musculoskeletal History: fractured neck at C6-C7 Neurological History: Reports: Brain Injury, Other (See Below) Other Neuro History: Head injury with accident, paraplegia Psychiatric History: Reports: Anxiety, Depression Endocrine/Metabolic History: Reports: None Hematologic History: Reports: None Immunologic History: Reports: None Oncologic (Cancer) History: Reports: None Dermatologic History: Reports: Cellulitis - Infectious Disease History Infectious Disease History: Reports: Chicken Pox - Past Surgical History Head Surgeries/Procedures: Reports: None Cardiovascular Surgical History: Reports: None Respiratory Surgical History: Reports: Other (See Below) Other Respiratory Surgeries/Procedures: hx of tracheostomy from accident, healed GI Surgical History: Reports: None Male Surgical History: Reports: None Neurological Surgical History: Reports: Other (See Below) Other Neurological Surgeries/Procedures: spinal repair/stabilzation post- accident Musculoskeletal Surgical History: Reports: Other (See Below) Other Musculoskeletal Surgeries/Procedures:: neck repair post accident, paraplegia Social & Family History - Family History Family Medical History: No Pertinent Family History - Caffeine Use Caffeine Use: Reports: None Caffeine Use Comment: 2 cans pop a day - Living Situation & Occupation Living situation: Reports: with Significant Other Occupation: Disabled ED ROS GENERAL - Review of Systems Review Of Systems: Comprehensive ROS is negative, except as noted in HPI. ED EXAM, GI/ABD - Physical Exam Exam: See Below Exam Limited By: No Limitations General Appearance: Alert, WD/WN, Moderate Distress Eyes: Bilateral: Normal Appearance, EOMI Ears: Normal External Exam, Normal Canal, Hearing Grossly Normal, Normal TMs Nose: Normal Inspection, Normal Mucosa, No Blood Throat/Mouth: Normal Inspection, Normal Lips, Normal Teeth, Normal Gums, Normal Oropharynx, Normal Voice, No Airway Compromise Head: Atraumatic, Normocephalic Neck: Normal Inspection, Supple, Non-Tender, Full Range of Motion Respiratory/Chest: No Respiratory Distress, Lungs Clear, Normal Breath Sounds, No Accessory Muscle Use, Chest Non-Tender Cardiovascular: Normal Peripheral Pulses GI/Abdominal Exam: Soft, Tender (diffuse) (Male) Exam: Deferred Rectal (Males) Exam: Deferred Back Exam: Normal Inspection, Full Range of Motion, NT Extremities: Normal Inspection, Normal Range of Motion, Non-Tender, Normal Capillary Refill, No Pedal Edema Neurological: Alert, Oriented, CN II-XII Intact, Normal Cognition, Normal Gait, Normal Reflexes, No Motor/Sensory Deficits Psychiatric: Normal Affect, Normal Mood Skin Exam: Warm, Dry, Intact, Normal Color, No Rash Lymphatic: No Adenopathy Course - Vital Signs Last Recorded V/S: Last Vital Signs Temp 36.7 C 01/04/21 01:48 Pulse 78 01/04/21 01:48 Resp 18 01/04/21 01:48 BP 142/85 H 01/04/21 01:48 Pulse Ox 99 01/04/21 01:48 - Orders/Labs/Meds Orders: Active Orders 24 hr Category Date Time Status CULTURE BLOOD [BC] Stat Lab 01/04/21 02:50 Ordered CULTURE URINE [RM] Stat Lab 01/04/21 01:45 Received Labs: Laboratory Tests 01/04/21 01/04/21 01/04/21 Range/Units 01:45 03:02 03:02 WBC 12.2 H (5.0-10.0) 10^3/uL RBC 4.69 (4.6-6.2) 10^6/uL Hgb 14.2 (14.0-18.0) g/dL Hct 43.0 (40.0-54.0) % MCV 91.7 (80-100) fL MCH 30.3 (27.0-34.0) pg MCHC 33.0 (33.0-35.0) g/dL Plt Count 282 (150-450) 10^3/uL Neut % (Auto) 77.7 H (42.2-75.2) % Lymph % (Auto) 12.3 L (20.5-50.1) % [place] % (Auto) 8.2 H (2-8) % Eos % (Auto) 1.6 (1.0-3.0) % Baso % (Auto) 0.2 (0.0-1.0) % Sodium 139 (136-145) mmol/L Potassium 4.1 (3.5-5.1) mmol/L Chloride 103 (98-107) mmol/L Carbon Dioxide 26 (21-32) mmol/L Anion Gap 14.1 H (7-13) mEq/L BUN 17 (7-18) mg/dL Creatinine 0.74 (0.70-1.30) mg/dL Est Cr Clr Drug Dosing 134.31 mL/min Estimated GFR (MDRD) > 60 BUN/Creatinine Ratio 23.0 (No establ ref range) Glucose 110 H (74-99) mg/dL Lactic Acid (0.4-2.0) mmol/L Calcium 8.1 L (8.5-10.1) mg/dL Total Bilirubin 0.2 (0.2-1.0) mg/dL AST 25 (15-37) U/L ALT 60 (16-63) U/L Alkaline Phosphatase 89 (46-116) U/L Total Protein 7.1 (6.4-8.2) g/dL Albumin 3.2 L (3.4-5.0) g/dL Globulin 3.9 Albumin/Globulin Ratio 0.82 Urine Color Yellow (YELLOW) Urine Appearance Cloudy (CLEAR) Urine pH 7.0 (5.0-9.0) Ur Specific [place] >= 1.030 (1.005-1.030) Urine Protein 100 H (NEGATIVE) Urine Glucose (UA) Negative (NEGATIVE) Urine Ketones Negative (NEGATIVE) Urine Occult Blood Moderate H (NEGATIVE) Urine Nitrite Negative (NEGATIVE) Urine Bilirubin Negative (NEGATIVE) Urine Urobilinogen 0.2 (0.2-1.0) mg/dL Ur Leukocyte Esterase Small H (NEGATIVE) Urine RBC 40-50 H /HPF Urine WBC 50-75 H (0-5/HPF) /HPF Ur Epithelial Cells Rare (NOT SEEN) /HPF Amorphous Sediment Few (NOT SEEN) /HPF Urine Bacteria Few (0-FEW/HPF) /HPF Urine Mucus Few H (NOT SEEN) /LPF 01/04/21 Range/Units 03:02 WBC (5.0-10.0) 10^3/uL RBC (4.6-6.2) 10^6/uL Hgb (14.0-18.0) g/dL Hct (40.0-54.0) % MCV (80-100) fL MCH (27.0-34.0) pg MCHC (33.0-35.0) g/dL Plt Count (150-450) 10^3/uL Neut % (Auto) (42.2-75.2) % Lymph % (Auto) (20.5-50.1) % [place] % (Auto) (2-8) % Eos % (Auto) (1.0-3.0) % Baso % (Auto) (0.0-1.0) % Sodium (136-145) mmol/L Potassium (3.5-5.1) mmol/L Chloride (98-107) mmol/L Carbon Dioxide (21-32) mmol/L Anion Gap (7-13) mEq/L BUN (7-18) mg/dL Creatinine (0.70-1.30) mg/dL Est Cr Clr Drug Dosing mL/min Estimated GFR (MDRD) BUN/Creatinine Ratio (No establ ref range) Glucose (74-99) mg/dL Lactic Acid 1.3 (0.4-2.0) mmol/L Calcium (8.5-10.1) mg/dL Total Bilirubin (0.2-1.0) mg/dL AST (15-37) U/L ALT (16-63) U/L Alkaline Phosphatase (46-116) U/L Total Protein (6.4-8.2) g/dL Albumin (3.4-5.0) g/dL Globulin Albumin/Globulin Ratio Urine Color (YELLOW) Urine Appearance (CLEAR) Urine pH (5.0-9.0) Ur Specific [place] (1.005-1.030) Urine Protein (NEGATIVE) Urine Glucose (UA) (NEGATIVE) Urine Ketones (NEGATIVE) Urine Occult Blood (NEGATIVE) Urine Nitrite (NEGATIVE) Urine Bilirubin (NEGATIVE) Urine Urobilinogen (0.2-1.0) mg/dL Ur Leukocyte Esterase (NEGATIVE) Urine RBC /HPF Urine WBC (0-5/HPF) /HPF Ur Epithelial Cells (NOT SEEN) /HPF Amorphous Sediment (NOT SEEN) /HPF Urine Bacteria (0-FEW/HPF) /HPF Urine Mucus (NOT SEEN) /LPF Meds: Medications Discontinued Medications Generic Name Dose Route Start Last Admin Trade Name Freq PRN Reason Stop Dose Admin Hydromorphone HCl 0.5 mg 01/04/21 03:57 01/04/21 04:11 Hydromorphone 0.5 Mg/0.5 Ml Syringe IVPUSH 01/04/21 03:58 0.5 mg ONETIME ONE Administration Iopamidol 100 ml 01/04/21 03:53 01/04/21 05:04 Iopamidol 612 Mg/Ml 100 Ml Bottle IVPUSH 01/04/21 03:54 Not Given ONETIME ONE Departure - Departure Time of Disposition: 05:19 Disposition: Home, Self-Care 01 Condition: Fair Clinical Impression: Cystitis - Discharge Information *PRESCRIPTION DRUG MONITORING PROGRAM REVIEWED*: Not Applicable *COPY OF PRESCRIPTION DRUG MONITORING REPORT IN PATIENT NATALIE: Not Applicable Forms: ED Department Discharge Care Plan Goals: The patient was advised of the examination, lab and CT results during the visit. The patient was given IV pain medication during the visit. The patient was encouraged to increase his oral fluid intake. The patient should take all medications as prescribed. If the patient has any additional symptoms or concerns, the patient should either return to the emergency department or visit her primary care facility. Sepsis Event Note (ED) - Focused Exam Vital Signs: Vital Signs Temp Pulse Resp BP Pulse Ox 03/13/21 01:48 36.7 C 78 18 142/85 H 99 - My Orders Last 24 Hours: My Active Orders 01/04/21 01:45 CULTURE URINE [RM] Stat 01/04/21 02:50 CULTURE BLOOD [BC] Stat - Assessment/Plan Last 24 Hours: My Active Orders 01/04/21 01:45 CULTURE URINE [RM] Stat 01/04/21 02:50 CULTURE BLOOD [BC] Stat
[2021-01-04 02:57] VITALS: BP 142/85; PULSE 78
[2021-01-04 03:52] LABS: ANION GAP 14.1 mEq/L (7-13); CHLORIDE,CL 103 mmol/L (98-107); SODIUM,NA 139 mmol/L (136-145)
[2021-01-04] MEDS: Iopamidol 612 MG/ML 100 ML Bottle IVPUSH ONE ×2 (03:57→05:04)
[2021-01-04] MEDS ORDERED: HYDROmorphone 0.5 MG/0.5 ML Syringe IVPUSH ONE (03:57)
--- NOTE | 2021-01-04 05:13 | CT ---
PROCEDURE INFORMATION: Exam: CT Abdomen And Pelvis Without Contrast Exam date and time: 01/04/2021 4:02 AM Age: 40 years old Clinical indication: Other: Wbc 12,200; Patient HX: Unable to get iv in 7 attempts with 2 blown veins; Additional info: Abdominal pain TECHNIQUE: Imaging protocol: Computed tomography of the abdomen and pelvis without contrast. Radiation optimization: All CT scans at this facility use at least one of these dose optimization techniques: automated exposure control; mA and/or kV adjustment per patient size (includes targeted exams where dose is matched to clinical indication); or iterative reconstruction. COMPARISON: CT Abdomen Pelvis w Cont 11/04/2019 3:05 AM FINDINGS: Lungs: The lung bases are clear. No effusion Liver: Normal. No mass. Gallbladder and bile ducts: No wall thickening, pericholecystic fluid or stones. Pancreas: Normal. No ductal dilation. Spleen: Normal. No splenomegaly. Adrenal glands: Normal. No mass. Kidneys and ureters: Normal. No hydronephrosis. Stomach and bowel: Unremarkable. No obstruction. No mucosal thickening. Appendix: No evidence of appendicitis. Intraperitoneal space: Unremarkable. No free air. No significant fluid collection. Vasculature: Unremarkable. No abdominal aortic aneurysm. Lymph nodes: Unremarkable. No enlarged lymph nodes. Urinary bladder: Fritz catheter is present in the urinary bladder. Urinary bladder wall is thickened. High attenuation material is present in the urinary bladder. Reproductive: Unremarkable as visualized. Bones/joints: Unremarkable. No acute fracture. Soft tissues: Unremarkable. IMPRESSION: Cystitis with small amounts of hemorrhage in the urinary bladder.
== END 2021-01-04 05:50 | disposition home or self-care (01) ==
LOC: DL.ED 01:38
DX: N30.90 Cystitis, unspecified without hematuria (principal)
CPT/HCPCS: 36415; 74018; 74176; 80053; 81001; 83605; 85025; 87040; 87086; 87088; 87186; 96374; 99283; 99284-25; J1170; Q9967

== ENCOUNTER 2021-02-21 08:40 | Emergency (ER) | payer MEDICAID ==
[2021-02-21 08:58] VITALS: BP 129/81; PULSE 88
--- NOTE | 2021-02-21 09:11 | EDM.PDOC ---
ED HPI GENERAL MEDICAL PROBLEM - General Chief Complaint: Behavioral/Psych Stated Complaint: [id number] STOMACH HURTS Time Seen by Provider: 02/21/21 09:11 Source of Information: Reports: Patient, Old Records, RN, RN Notes Reviewed History Limitations: Reports: No Limitations - History of Present Illness INITIAL COMMENTS - FREE TEXT/NARRATIVE: Pt presents to ER with c/o anxiety, abdominal discomfort with chronic constipation, and Hx of neurogenic bowel due to paraplegia. Pt states he had a very large BM yesterday, so large that is scared him. He admits that he has been smoking a lot of marijuana recently, and last did methamphetamine 3 days ago. He thinks maybe he is just anxious from all the drug use, but his "baby mama" checked in her son for an ear infection, so he decided since he was here he would sign in to be checked also. He denies any fever, cough, pain, or any other medical emergency concerns. Onset: Gradual Duration: Day(s): (1) Location: Reports: Abdomen, Generalized Quality: Reports: Pressure Severity: Mild Improves with: Reports: None Worsens with: Reports: None Upper Abdomen Pain Score (Numeric/FACES): 4 - Related Data Allergies Allergy/AdvReac Type Severity Reaction Status Date / Time No Known Allergies Allergy Verified 02/21/21 08:58 Home Meds: Home Meds Sennosides/Docusate Sodium [Stool Softener-Laxative Tablet] 1 each PO BID 10/29/19 [History] Multivitamin with Minerals [Multiple Vitamin] 1 tab PO DAILY 02/21/21 [History] Past Medical History HEENT History: Reports: None Cardiovascular History: Reports: None Other Cardiovascular History: states heart rate can vary Respiratory History: Reports: Intubation, Previous Gastrointestinal History: Reports: Chronic Constipation, GERD Other Gastrointestinal History: previous feeding tube, no longer present Genitourinary History: Reports: UTI, Recurrent Other Genitourinary History: self cath several times a day as needed. Musculoskeletal History: Reports: Neck Pain, Chronic Other Musculoskeletal History: fractured neck at C6-C7 Neurological History: Reports: Brain Injury, Other (See Below) Other Neuro History: Head injury with accident, paraplegia Psychiatric History: Reports: Anxiety, Depression Endocrine/Metabolic History: Reports: None Hematologic History: Reports: None Immunologic History: Reports: None Oncologic (Cancer) History: Reports: None Dermatologic History: Reports: Cellulitis - Infectious Disease History Infectious Disease History: Reports: Chicken Pox - Past Surgical History Head Surgeries/Procedures: Reports: None HEENT Surgical History: Reports: Other (See Below) Other HEENT Surgeries/Procedures: history of trach after accident Cardiovascular Surgical History: Reports: None Respiratory Surgical History: Reports: Other (See Below) Other Respiratory Surgeries/Procedures: hx of tracheostomy from accident, healed GI Surgical History: Reports: None Male Surgical History: Reports: None Neurological Surgical History: Reports: Other (See Below) Other Neurological Surgeries/Procedures: spinal repair/stabilzation post- accident Musculoskeletal Surgical History: Reports: Other (See Below) Other Musculoskeletal Surgeries/Procedures:: neck repair post accident, paraplegia Social & Family History - Family History Family Medical History: No Pertinent Family History - Tobacco Use Tobacco Use Status *Q: Current Every Day Tobacco User Years of Tobacco use: 15 Packs/Tins Daily: 0.5 Second Hand Smoke Exposure: No - Caffeine Use Caffeine Use: Reports: Soda Caffeine Use Comment: 2 cans pop a day - Alcohol Use Alcohol Use History: Yes Alcohol Use in Last Twelve Months: Yes Alcohol Use Frequency: Rarely - Recreational Drug Use Recreational Drug Use: Yes Drug Use in Last 12 Months: Yes Recreational Drug Type: Reports: Marijuana/Hashish, Methamphetamine Other Recreational Drug Type: smoking marijuana a lot lately and did the meth 2 days ago Recreational Drug Use Frequency: Weekly - Living Situation & Occupation Living situation: Reports: with Significant Other Occupation: Disabled ED ROS GENERAL - Review of Systems Review Of Systems: Comprehensive ROS is negative, except as noted in HPI. ED EXAM, GENERAL - Physical Exam Exam: See Below Exam Limited By: No Limitations General Appearance: Alert, WD/WN, No Apparent Distress Eye Exam: Bilateral Eye: Normal Inspection (No scleral icterus) Nose: Normal Inspection Throat/Mouth: Normal Voice, No Airway Compromise Head: Atraumatic, Normocephalic Neck: Normal Inspection Respiratory/Chest: No Respiratory Distress, Lungs Clear, Normal Breath Sounds, No Accessory Muscle Use, Chest Non-Tender Cardiovascular: Regular Rate, Rhythm, No Edema GI/Abdominal: Soft, No Organomegaly, No Distention, Abnormal Bowel Sounds (Hypoactive bowel sounds). No: Guarding, Rigid, Rebound (Male) Exam: Deferred Rectal (Males) Exam: Deferred Extremities: Other (Chronic paraplegia) Neurological: Alert, Oriented, Other (Chronic paraplegia) Psychiatric: Anxious, Depressed Mood, Flat Affect Skin Exam: Warm, Dry, Normal Color Course - Vital Signs Last Recorded V/S: Last Vital Signs Temp 97.6 F 02/21/21 08:52 Pulse 88 02/21/21 08:52 Resp 16 02/21/21 08:52 BP 129/81 02/21/21 08:52 Pulse Ox 100 02/21/21 08:52 - Orders/Labs/Meds Orders: Active Orders 24 hr Category Date Time Status Lactulose [Cephulac] Med 02/21/21 10:31 Once 20 gm PO ONETIME ONE bisacodyL [Dulcolax] Med 02/21/21 10:31 Once 10 mg RECTAL ONETIME ONE Labs: Laboratory Tests 02/21/21 02/21/21 Range/Units 09:38 09:38 WBC 5.3 (5.0-10.0) 10^3/uL RBC 4.81 (4.6-6.2) 10^6/uL Hgb 14.5 (14.0-18.0) g/dL Hct 44.1 (40.0-54.0) % MCV 91.7 (80-100) fL MCH 30.1 (27.0-34.0) pg MCHC 32.9 L (33.0-35.0) g/dL Plt Count 307 (150-450) 10^3/uL Neut % (Auto) 52.2 (42.2-75.2) % Lymph % (Auto) 32.2 (20.5-50.1) % [place] % (Auto) 12.2 H (2-8) % Eos % (Auto) 3.0 (1.0-3.0) % Baso % (Auto) 0.4 (0.0-1.0) % Sodium 138 (136-145) mmol/L Potassium 4.0 (3.5-5.1) mmol/L Chloride 100 (98-107) mmol/L Carbon Dioxide 30 (21-32) mmol/L Anion Gap 12.0 (7-13) mEq/L BUN 14 (7-18) mg/dL Creatinine 0.89 (0.70-1.30) mg/dL Est Cr Clr Drug Dosing 105.09 mL/min Estimated GFR (MDRD) > 60 BUN/Creatinine Ratio 15.7 (No establ ref range) Glucose 90 (70-99) mg/dL Calcium 8.3 L (8.5-10.1) mg/dL Total Bilirubin 0.4 (0.2-1.0) mg/dL AST 30 (15-37) U/L ALT 59 (16-63) U/L Alkaline Phosphatase 84 (46-116) U/L Total Protein 7.3 (6.4-8.2) g/dL Albumin 3.4 (3.4-5.0) g/dL Globulin 3.9 Albumin/Globulin Ratio 0.9 - Radiology Interpretation Free Text/Narrative:: [facility] [place] [facility] Final Radiology Report Call: [phone] assistance Online chat: [email or web address] Name: JORDEN MENDENHALL Age: 40Years M Date: 02/21/2021 SSN: -- : [id number] Study: CR ABDOMEN 1V FLAT Requesting Physician: STEPHANIE SMITH Images: 2 Addl Studies: Provided Clinical History: abdominal pain, chronic constipation Contrast: Contrast Medium: Contrast Amount: Contrast Method: CONFIDENTIALITY STATEMENT This report is intended only for use by the referring physician, and only in accordance with law. If you received this in error, call [phone]. Page 1 of 1 PROCEDURE INFORMATION: Exam: XR Abdomen Exam date and time: 02/21/2021 9:46 AM Age: 40 years old Clinical indication: Abdominal pain; Additional info: Abdominal pain, chronic constipation TECHNIQUE: Imaging protocol: XR of the abdomen. Views: Frontal supine view of the abdomen. 1 View. COMPARISON: CR Abdomen 2V AP Flat Upright 06/25/2020 6:53 AM FINDINGS: Gastrointestinal tract: Normal. No bowel dilation. Moderate stool in the colon. 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 IMPRESSION: No acute findings. Moderate stool in the colon. Thank you for allowing us to participate in the care of your patient. Dictated and Authenticated by: Carla Hurley MD 02/21/2021 10:15 AM Central Time ([place] & [place]) Departure - Departure Time of Disposition: 10:33 Disposition: Home, Self-Care 01 Condition: Good Clinical Impression: Anxiety Constipation Qualifiers: Constipation type: unspecified constipation type Qualified Code(s): K59.00 - Constipation, unspecified - Discharge Information *PRESCRIPTION DRUG MONITORING PROGRAM REVIEWED*: Not Applicable *COPY OF PRESCRIPTION DRUG MONITORING REPORT IN PATIENT NATALIE: Not Applicable Instructions: Constipation, Adult, Managing Anxiety, Adult Forms: ED Department Discharge Additional Instructions: Abstain from drug use. Go to a detox or treatment facility if you are unable to quit on your own. Follow up in clinic if any further concerns. Sepsis Event Note (ED) - Evaluation Sepsis Screening Result: No Definite Risk - Focused Exam Vital Signs: Vital Signs Temp Pulse Resp BP Pulse Ox 02/21/21 08:52 97.6 F 88 16 129/81 100 - My Orders Last 24 Hours: My Active Orders 02/21/21 10:31 Lactulose [Cephulac] 20 gm PO ONETIME ONE bisacodyL [Dulcolax] 10 mg RECTAL ONETIME ONE - Assessment/Plan Last 24 Hours: My Active Orders 02/21/21 10:31 Lactulose [Cephulac] 20 gm PO ONETIME ONE bisacodyL [Dulcolax] 10 mg RECTAL ONETIME ONE
[2021-02-21 10:04] LABS: CHLORIDE,CL 100 mmol/L (98-107); SODIUM,NA 138 mmol/L (136-145)
--- NOTE | 2021-02-21 10:15 | CR ---
PROCEDURE INFORMATION: Exam: XR Abdomen Exam date and time: 02/21/2021 9:46 AM Age: 40 years old Clinical indication: Abdominal pain; Additional info: Abdominal pain, chronic constipation TECHNIQUE: Imaging protocol: XR of the abdomen. Views: Frontal supine view of the abdomen. 1 View. COMPARISON: CR Abdomen 2V AP Flat Upright 06/25/2020 6:53 AM FINDINGS: Gastrointestinal tract: Normal. No bowel dilation. Moderate stool in the colon. 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 IMPRESSION: No acute findings. Moderate stool in the colon.
[2021-02-21] MEDS ORDERED: Lactulose Soln 10 GM/15 ML 30 ML UD Cup PO ONE (10:31)
[2021-02-21] MEDS ORDERED: Bisacodyl 10 MG Supp RECTAL ONE (10:31)
== END 2021-02-21 10:44 | disposition home or self-care (01) ==
LOC: DL.ED 08:40
DX: K59.00 Constipation, unspecified (principal); F41.9 Anxiety disorder, unspecified; Z72.0 Tobacco use
CPT/HCPCS: 36415; 74018; 80053; 85025; 99283; A9270

== ENCOUNTER 2021-06-29 19:13 | Emergency (ER) | payer MEDICAID ==
[2021-06-29 19:41] VITALS: BP 142/93; PULSE 88
[2021-06-29 20:00] LABS: ANION GAP 13.1 mEq/L (7-13); CHLORIDE,CL 106 mmol/L (98-107); SODIUM,NA 142 mmol/L (136-145)
--- NOTE | 2021-06-29 20:05 | EDM.PDOC ---
ED HPI GENERAL MEDICAL PROBLEM - General Chief Complaint: Lower Extremity Injury/Pain Stated Complaint: LEFT LEGNUMB AND SWOLLEN Time Seen by Provider: 06/29/21 19:45 Source of Information: Reports: Patient, Family History Limitations: Reports: No Limitations - History of Present Illness INITIAL COMMENTS - FREE TEXT/NARRATIVE: c/o change in sensation to left lower leg after sleeping funny on it. No injury. normal sensation above knee, foot ankle look swollen. Remote c-6c7 injury. - Related Data Allergies Allergy/AdvReac Type Severity Reaction Status Date / Time No Known Allergies Allergy Verified 02/21/21 08:58 Home Meds: Home Meds Sennosides/Docusate Sodium [Stool Softener-Laxative Tablet] 1 each PO BID 10/29/19 [History] Multivitamin with Minerals [Multiple Vitamin] 1 tab PO DAILY 02/21/21 [History] Past Medical History HEENT History: Reports: None Cardiovascular History: Reports: None Other Cardiovascular History: states heart rate can vary Respiratory History: Reports: Intubation, Previous Gastrointestinal History: Reports: Chronic Constipation, GERD Other Gastrointestinal History: previous feeding tube, no longer present Genitourinary History: Reports: UTI, Recurrent Other Genitourinary History: self cath several times a day as needed. Musculoskeletal History: Reports: Neck Pain, Chronic Other Musculoskeletal History: fractured neck at C6-C7 Neurological History: Reports: Brain Injury, Other (See Below) Other Neuro History: Head injury with accident, paraplegia Psychiatric History: Reports: Anxiety, Depression Endocrine/Metabolic History: Reports: None Hematologic History: Reports: None Immunologic History: Reports: None Oncologic (Cancer) History: Reports: None Dermatologic History: Reports: Cellulitis - Infectious Disease History Infectious Disease History: Reports: Chicken Pox - Past Surgical History Head Surgeries/Procedures: Reports: None HEENT Surgical History: Reports: Other (See Below) Other HEENT Surgeries/Procedures: history of trach after accident Cardiovascular Surgical History: Reports: None Respiratory Surgical History: Reports: Other (See Below) Other Respiratory Surgeries/Procedures: hx of tracheostomy from accident, healed GI Surgical History: Reports: None Male Surgical History: Reports: None Neurological Surgical History: Reports: Other (See Below) Other Neurological Surgeries/Procedures: spinal repair/stabilzation post- accident Musculoskeletal Surgical History: Reports: Other (See Below) Other Musculoskeletal Surgeries/Procedures:: neck repair post accident, paraplegia Social & Family History - Family History Family Medical History: No Pertinent Family History - Tobacco Use Tobacco Use Status *Q: Current Every Day Tobacco User Years of Tobacco use: 22 Packs/Tins Daily: 0.2 - Caffeine Use Caffeine Use: Reports: Coffee, Soda Caffeine Use Comment: 2 cans pop a day - Recreational Drug Use Recreational Drug Use: Yes Recreational Drug Type: Reports: Marijuana/Hashish - Living Situation & Occupation Living situation: Reports: with Significant Other Occupation: Disabled Review of Systems - Review of Systems Review Of Systems: Comprehensive ROS is negative, except as noted in HPI. ED EXAM, GENERAL - Physical Exam Exam: See Below Exam Limited By: No Limitations General Appearance: Alert, Anxious Eye Exam: Bilateral Eye: EOMI Ears: Normal External Exam Nose: Normal Inspection Throat/Mouth: Normal Inspection Head: Atraumatic, Normocephalic Neck: Normal Inspection Respiratory/Chest: No Respiratory Distress, Lungs Clear, Normal Breath Sounds Cardiovascular: Normal Peripheral Pulses, Regular Rate, Rhythm GI/Abdominal: Normal Bowel Sounds, Soft, Non-Tender Extremities: Pedal Edema (2+ left). No: Normal Range of Motion, Linda's Sign Neurological: Alert, Oriented, Normal Cognition, Other (base line lower extremity motor defecit r/t remote spinal cord injury flaccid estremities. sensation intact, hypersensitivity left lateral drew and upper blackburn.) Psychiatric: Anxious Skin Exam: Warm, Dry, Intact, Normal Color, No Rash. No: Erythema Course - Vital Signs Last Recorded V/S: Last Vital Signs Temp 98.9 F 06/29/21 19:30 Pulse 88 06/29/21 19:30 Resp 16 06/29/21 19:30 BP 142/93 H 06/29/21 19:30 Pulse Ox 96 06/29/21 19:30 - Orders/Labs/Meds Labs: Laboratory Tests 06/29/21 06/29/21 06/29/21 Range/Units 19:35 19:35 19:35 WBC 5.7 (5.0-10.0) 10^3/uL RBC 4.75 (4.6-6.2) 10^6/uL Hgb 14.5 (14.0-18.0) g/dL Hct 43.1 (40.0-54.0) % MCV 90.7 (80-100) fL MCH 30.5 (27.0-34.0) pg MCHC 33.6 (33.0-35.0) g/dL Plt Count 252 (150-450) 10^3/uL Neut % (Auto) 57.3 (42.2-75.2) % Lymph % (Auto) 29.2 (20.5-50.1) % [place] % (Auto) 10.0 H (2-8) % Eos % (Auto) 3.0 (1.0-3.0) % Baso % (Auto) 0.5 (0.0-1.0) % D-Dimer, Quantitative 138 (0-400) ng/mL Sodium 142 (136-145) mmol/L Potassium 4.1 (3.5-5.1) mmol/L Chloride 106 (98-107) mmol/L Carbon Dioxide 27 (21-32) mmol/L Anion Gap 13.1 H (7-13) mEq/L BUN 15 (7-18) mg/dL Creatinine 0.86 (0.70-1.30) mg/dL Est Cr Clr Drug Dosing 106.22 mL/min Estimated GFR (MDRD) > 60 BUN/Creatinine Ratio 17.4 (No establ ref range) Glucose 90 (70-99) mg/dL Calcium 8.4 L (8.5-10.1) mg/dL Total Bilirubin 0.4 (0.2-1.0) mg/dL AST 30 (15-37) U/L ALT 47 (16-63) U/L Alkaline Phosphatase 98 (46-116) U/L Total Protein 6.9 (6.4-8.2) g/dL Albumin 3.3 L (3.4-5.0) g/dL Globulin 3.6 Albumin/Globulin Ratio 0.92 Departure - Departure Time of Disposition: 21:48 Disposition: Home, Self-Care 01 Condition: Fair Clinical Impression: Numbness in left leg - Discharge Information *PRESCRIPTION DRUG MONITORING PROGRAM REVIEWED*: No Referrals: PCP,None [Primary Care Provider] - Forms: ED Department Discharge Additional Instructions: elevate extremity clinic follow up Wednesday, Follow up sooneri jemmany change in color, or not improving.- May need MRI Sepsis Event Note (ED) - Evaluation Sepsis Screening Result: No Definite Risk
== END 2021-06-29 22:01 | disposition home or self-care (01) ==
LOC: DL.ED 19:13
DX: R20.0 Anesthesia of skin (principal); Z72.0 Tobacco use
CPT/HCPCS: 36415; 80053; 85025; 85379; 99284

== ENCOUNTER 2021-10-21 23:00 | Emergency (ER) | payer MEDICAID ==
[2021-10-21 23:58] LABS: ANION GAP 14.8 mEq/L (7-13); CHLORIDE,CL 99 mmol/L (98-107); SODIUM,NA 136 mmol/L (136-145)
[2021-10-22] MEDS ORDERED: Iopamidol 612 MG/ML 100 ML Bottle IVPUSH ONE (00:44)
--- NOTE | 2021-10-22 00:50 | EDM.PDOC ---
ED HPI GENERAL MEDICAL PROBLEM - General Chief Complaint: Abdominal Pain Stated Complaint: AMBULANCE Time Seen by Provider: 10/21/21 23:10 Source of Information: Reports: Patient History Limitations: Reports: No Limitations - History of Present Illness INITIAL COMMENTS - FREE TEXT/NARRATIVE: 41 y/o M c/o episode of dizziness fatigue, weakness abd pain and nausea while at home this evening. Occurred about an hour before he came to the ER. Pt states he has never felt these symptoms and had his call 911. EMS arrived and pt had the urge to defecate. After he did defecate he experienced complete resolution in symptoms. Hx of paraplegia after c5-c6 fracture. Pt has some sensation below the nipple line but no motor control. He self caths for urination and has expressed some cloudiness in urination. During his symptoms pt reports the abd pain as sharp over the upper quad and non radiating. Denies sampson, vision prob, cp, db, neck pain, back pain, drugs, etoh. Bilateral Abdomen Pain Score (Numeric/FACES): 6 - Related Data Allergies Allergy/AdvReac Type Severity Reaction Status Date / Time No Known Allergies Allergy Verified 10/21/21 23:06 Home Meds: Home Meds Sennosides/Docusate Sodium [Stool Softener-Laxative Tablet] 1 each PO ASDIRECTED 10/29/19 [History] Multivitamin with Minerals [Multiple Vitamin] 1 tab PO DAILY 02/21/21 [History] Past Medical History HEENT History: Reports: None Cardiovascular History: Reports: None Other Cardiovascular History: states heart rate can vary Respiratory History: Reports: Intubation, Previous Gastrointestinal History: Reports: Chronic Constipation, GERD Other Gastrointestinal History: previous feeding tube, no longer present Genitourinary History: Reports: UTI, Recurrent Other Genitourinary History: self cath several times a day as needed. Musculoskeletal History: Reports: Neck Pain, Chronic Other Musculoskeletal History: fractured neck at C6-C7 Neurological History: Reports: Brain Injury, Other (See Below) Other Neuro History: Head injury with accident, paraplegia Psychiatric History: Reports: Anxiety, Depression Endocrine/Metabolic History: Reports: None Hematologic History: Reports: None Immunologic History: Reports: None Oncologic (Cancer) History: Reports: None Dermatologic History: Reports: Cellulitis - Infectious Disease History Infectious Disease History: Reports: Chicken Pox - Past Surgical History Head Surgeries/Procedures: Reports: None HEENT Surgical History: Reports: Other (See Below) Other HEENT Surgeries/Procedures: history of trach after accident Cardiovascular Surgical History: Reports: None Respiratory Surgical History: Reports: Other (See Below) Other Respiratory Surgeries/Procedures: hx of tracheostomy from accident, healed GI Surgical History: Reports: None Male Surgical History: Reports: None Neurological Surgical History: Reports: Other (See Below) Other Neurological Surgeries/Procedures: spinal repair/stabilzation post- accident Musculoskeletal Surgical History: Reports: Other (See Below) Other Musculoskeletal Surgeries/Procedures:: neck repair post accident, paraplegia Social & Family History - Family History Family Medical History: No Pertinent Family History - Tobacco Use Tobacco Use Status *Q: Current Some Day Tobacco User Years of Tobacco use: 17 Packs/Tins Daily: 0.1 - Caffeine Use Caffeine Use: Reports: Coffee Caffeine Use Comment: 2 cans pop a day - Recreational Drug Use Recreational Drug Type: Reports: Marijuana/Hashish - Living Situation & Occupation Living situation: Reports: with Significant Other Occupation: Disabled ED ROS GENERAL - Review of Systems Review Of Systems: Comprehensive ROS is negative, except as noted in HPI. ED EXAM, GI/ABD - Physical Exam Exam: See Below Exam Limited By: No Limitations General Appearance: Alert, No Apparent Distress Ears: Normal External Exam, Normal Canal, Hearing Grossly Normal, Normal TMs Nose: Normal Inspection, Normal Mucosa, No Blood Throat/Mouth: Normal Inspection, Normal Lips, Normal Teeth, Normal Gums, Normal Oropharynx, Normal Voice, No Airway Compromise Head: Atraumatic, Normocephalic Neck: Normal Inspection, Supple, Non-Tender, Full Range of Motion Respiratory/Chest: No Respiratory Distress, Lungs Clear, Normal Breath Sounds, No Accessory Muscle Use, Chest Non-Tender Cardiovascular: Normal Peripheral Pulses, Regular Rate, Rhythm, No Edema, No Gallop, No JVD, No Murmur, No Rub GI/Abdominal Exam: Soft, Tender (tender upper left and R quad) (Male) Exam: Deferred Rectal (Males) Exam: Deferred Extremities: Non-Tender, No Pedal Edema Neurological: Alert, Oriented, CN II-XII Intact, Other (no lower motor function. ) Psychiatric: Normal Affect, Normal Mood Skin Exam: Warm, Dry, Intact Course - Vital Signs Last Recorded V/S: Last Vital Signs Temp 98.3 F 10/22/21 02:22 Pulse 70 10/22/21 02:22 Resp 19 10/22/21 02:22 BP 143/92 H 10/22/21 02:22 Pulse Ox 97 10/22/21 02:22 - Orders/Labs/Meds Labs: Laboratory Tests 10/21/21 10/21/21 10/21/21 Range/Units 23:20 23:30 23:30 WBC 15.1 H (5.0-10.0) 10^3/uL RBC 4.63 (4.6-6.2) 10^6/uL Hgb 14.1 (14.0-18.0) g/dL Hct 43.2 (40.0-54.0) % MCV 93.3 (80-100) fL MCH 30.5 (27.0-34.0) pg MCHC 32.6 L (33.0-35.0) g/dL Plt Count 402 D (150-450) 10^3/uL Neut % (Auto) 80.7 H (42.2-75.2) % Lymph % (Auto) 10.9 L (20.5-50.1) % [place] % (Auto) 7.1 (2-8) % Eos % (Auto) 1.1 (1.0-3.0) % Baso % (Auto) 0.2 (0.0-1.0) % Sodium 136 (136-145) mmol/L Potassium 3.8 (3.5-5.1) mmol/L Chloride 99 (98-107) mmol/L Carbon Dioxide 26 (21-32) mmol/L Anion Gap 14.8 H (7-13) mEq/L BUN 17 (7-18) mg/dL Creatinine 0.69 L (0.70-1.30) mg/dL Est Cr Clr Drug Dosing 146.94 mL/min Estimated GFR (MDRD) > 60 BUN/Creatinine Ratio 24.6 (No establ ref range) Glucose 106 H (70-99) mg/dL Lactic Acid (0.4-2.0) mmol/L Calcium 8.7 (8.5-10.1) mg/dL Total Bilirubin 0.4 (0.2-1.0) mg/dL AST 32 (15-37) U/L ALT 50 (16-63) U/L Alkaline Phosphatase 100 (46-116) U/L Total Protein 7.4 (6.4-8.2) g/dL Albumin 3.4 (3.4-5.0) g/dL Globulin 4.0 Albumin/Globulin Ratio 0.9 Urine Color (YELLOW) Urine Appearance (CLEAR) Urine pH (5.0-9.0) Ur Specific [place] (1.005-1.030) Urine Protein (NEGATIVE) Urine Glucose (UA) (NEGATIVE) Urine Ketones (NEGATIVE) Urine Occult Blood (NEGATIVE) Urine Nitrite (NEGATIVE) Urine Bilirubin (NEGATIVE) Urine Urobilinogen (0.2-1.0) mg/dL Ur Leukocyte Esterase (NEGATIVE) Influenza Type A RNA Negative (NEGATIVE) Influenza Type B RNA Negative (NEGATIVE) SARS-CoV-2 RNA (ERIC) Negative (NEGATIVE) 10/21/21 10/21/21 Range/Units 23:30 23:33 WBC (5.0-10.0) 10^3/uL RBC (4.6-6.2) 10^6/uL Hgb (14.0-18.0) g/dL Hct (40.0-54.0) % MCV (80-100) fL MCH (27.0-34.0) pg MCHC (33.0-35.0) g/dL Plt Count (150-450) 10^3/uL Neut % (Auto) (42.2-75.2) % Lymph % (Auto) (20.5-50.1) % [place] % (Auto) (2-8) % Eos % (Auto) (1.0-3.0) % Baso % (Auto) (0.0-1.0) % Sodium (136-145) mmol/L Potassium (3.5-5.1) mmol/L Chloride (98-107) mmol/L Carbon Dioxide (21-32) mmol/L Anion Gap (7-13) mEq/L BUN (7-18) mg/dL Creatinine (0.70-1.30) mg/dL Est Cr Clr Drug Dosing mL/min Estimated GFR (MDRD) BUN/Creatinine Ratio (No establ ref range) Glucose (70-99) mg/dL Lactic Acid 0.8 (0.4-2.0) mmol/L Calcium (8.5-10.1) mg/dL Total Bilirubin (0.2-1.0) mg/dL AST (15-37) U/L ALT (16-63) U/L Alkaline Phosphatase (46-116) U/L Total Protein (6.4-8.2) g/dL Albumin (3.4-5.0) g/dL Globulin Albumin/Globulin Ratio Urine Color Yellow (YELLOW) Urine Appearance Slightly cloudy (CLEAR) Urine pH 6.0 (5.0-9.0) Ur Specific [place] >= 1.030 (1.005-1.030) Urine Protein Negative (NEGATIVE) Urine Glucose (UA) Negative (NEGATIVE) Urine Ketones Trace H (NEGATIVE) Urine Occult Blood Negative (NEGATIVE) Urine Nitrite Negative (NEGATIVE) Urine Bilirubin Negative (NEGATIVE) Urine Urobilinogen 0.2 (0.2-1.0) mg/dL Ur Leukocyte Esterase Negative (NEGATIVE) Influenza Type A RNA (NEGATIVE) Influenza Type B RNA (NEGATIVE) SARS-CoV-2 RNA (ERIC) (NEGATIVE) Meds: Medications Discontinued Medications Generic Name Dose Route Start Last Admin Trade Name Sho PRN Reason Stop Dose Admin Iopamidol 100 ml 10/22/21 00:44 10/22/21 00:59 Iopamidol 612 Mg/Ml 100 Ml Bottle IVPUSH 10/22/21 00:45 75 ml ONETIME ONE Administration - Re-Assessments/Exams Free Text/Narrative Re-Assessment/Exam: 10/22/21 02:50 I have discussed the labs, ct and exam with the pt and explained the findings. The pt appears to have a nonspecific leukocytosis. No infection could be identified. As the pt stated his symptoms resolved after defecating. As the pt is a paraplegic and has decreased sensation below the nipple line it is likely that the stimulation from the urge to defecate precipitated his symptoms. He has remained symptom free during his visit and feels safe to go home. I will ave him follow up with his PCP if symptoms return. Departure - Departure Time of Disposition: 02:54 Disposition: Home, Self-Care 01 Condition: Good Clinical Impression: Nonspecific abdominal pain Leukocytosis, unspecified Qualifiers: Leukocytosis type: other Qualified Code(s): D72.828 - Other elevated white blood cell count - Discharge Information *PRESCRIPTION DRUG MONITORING PROGRAM REVIEWED*: Not Applicable *COPY OF PRESCRIPTION DRUG MONITORING REPORT IN PATIENT NATALIE: Not Applicable Forms: ED Department Discharge Additional Instructions: Follow up with your primary care facility or return to the ER if symptoms return Sepsis Event Note (ED) - Focused Exam Vital Signs: Vital Signs Temp Pulse Resp BP Pulse Ox 10/22/21 02:22 98.3 F 70 19 143/92 H 97 10/21/21 23:30 62 20 138/92 H 98 10/21/21 23:02 97.0 F 62 18 141/93 H 98
[2021-10-22 00:59] LABS: CORONAVIRUS COVID-19 NAA NEGATIVE (NEGATIVE)
--- NOTE | 2021-10-22 02:21 | CT ---
PROCEDURE INFORMATION: Exam: CT Abdomen And Pelvis With Contrast Exam date and time: 10/22/2021 12:50 AM Age: 41 years old Clinical indication: Abdominal tenderness, right and left upper quadrants. TECHNIQUE: Imaging protocol: Computed tomography of the abdomen and pelvis with contrast. Radiation optimization: All CT scans at this facility use at least one of these dose optimization techniques: automated exposure control; mA and/or kV adjustment per patient size (includes targeted exams where dose is matched to clinical indication); or iterative reconstruction. Contrast material: ISOVUE 300; Contrast volume: 75 ml; Contrast route: INTRAVENOUS (IV); COMPARISON: CT Abdomen Pelvis 01/04/2021 4:02 AM FINDINGS: Lung bases are clear. Solid abdominal organs are unremarkable. The gallbladder is fluid filled. No radiopaque gallstones or biliary ductal dilatation. The stomach is largely collapsed and is otherwise unremarkable. Liquefied stool in the colon. Bowel is otherwise unremarkable. Normal appendix is identified. Mild abdominal aortic atherosclerotic calcification. No abdominal aortic aneurysm or dissection. No abdominal or pelvic lymphadenopathy. The urinary bladder is fluid filled and unremarkable. No free intraperitoneal air or fluid. Osseous structures are intact. IMPRESSION: No acute abdominal findings.
[2021-10-22 02:23] VITALS: BP 143/92; PULSE 70
== END 2021-10-22 03:07 | disposition home or self-care (01) ==
LOC: DL.ED 23:00
DX: R10.12 Left upper quadrant pain (principal); R10.11 Right upper quadrant pain; D72.828 Other elevated white blood cell count; Z72.0 Tobacco use; Z20.822 Contact with and (suspected) exposure to COVID-19
CPT/HCPCS: 0240U; 36415; 74177; 80053; 81003; 83605; 85025; 99285; Q9967

== ENCOUNTER 2022-05-14 05:22 | Emergency (ER) | payer MEDICAID ==
[2022-05-14 06:12] VITALS: BP 144/98; PULSE 92
[2022-05-18 07:46] LABS: C.TRACHOMATIS BY TMA Negative (Negative); N.GONORRHOEAE BY TMA Negative (Negative)
== END 2022-05-14 06:43 ==
LOC: DL.ED 05:22
DX: N50.811 Right testicular pain (principal); N50.89 Other specified disorders of the male genital organs; Z79.899 Other long term (current) drug therapy
CPT/HCPCS: 81001; 87086; 87491; 87591; 99285

== ENCOUNTER 2022-07-07 07:37 | Emergency (ER) | payer MEDICAID ==
[2022-07-07 09:03] VITALS: BP 174/113; PULSE 65
[2022-07-07] MEDS ORDERED: Metoclopramide 10 MG/2 ML SDV IVPUSH ONE (10:41)
[2022-07-07] MEDS ORDERED: Sodium Chloride 0.9% 1,000 ML IV ONE (10:41)
== END 2022-07-07 12:24 | disposition home or self-care (01) ==
LOC: DL.ED 07:37
DX: K59.01 Slow transit constipation (principal); F17.210 Nicotine dependence, cigarettes, uncomplicated
CPT/HCPCS: 74019; 81001; 87086; 96361; 96374; 99283-25; 99284; J2765; J7030

== ENCOUNTER 2022-08-20 20:30 | Emergency (ER) | payer MEDICAID ==
[2022-08-20 20:38] VITALS: BP 120/91; PULSE 96
[2022-08-20] MEDS ORDERED: Sodium Chloride 0.9% 10 ML Syringe FLUSH PRN (20:45)
[2022-08-20] MEDS ORDERED: HYDROmorphone 1 MG/ML Syringe IVPUSH ONE ×2 (20:45→21:57)
[2022-08-20] MEDS ORDERED: Ondansetron 4 MG/2 ML SDV IVPUSH ONE (20:45)
[2022-08-20] MEDS ORDERED: Sodium Chloride 0.9% 1,000 ML IV ONE (20:45)
[2022-08-20 21:23] LABS: ANION GAP 14.7 mEq/L (7-13); CHLORIDE,CL 105 mmol/L (98-107); SODIUM,NA 142 mmol/L (136-145)
[2022-08-20 21:28] LABS: AMPHETAMINES,URINE POSITIVE (NEGATIVE); BARBITURATES,URINE NEGATIVE (NEGATIVE); BENZODIAZEPINE,URINE NEGATIVE (NEGATIVE); MDMA (ECSTASY), URINE NEGATIVE (NEGATIVE); METHADONE,URINE NEGATIVE (NEGATIVE); METHAMPHETAMINES,URINE POSITIVE (NEGATIVE); OPIATES,URINE NEGATIVE (NEGATIVE); OXYCODONE,URINE NEGATIVE (NEGATIVE); PHENCYCLIDINE,URINE NEGATIVE (NEGATIVE); TCA,URINE NEGATIVE (NEGATIVE)
[2022-08-20 21:28] LABS: PTT,PARTIAL THROMBOPLSTIN TIME 24.6 SEC (22.0-34.0)
[2022-08-20 21:40] LABS: ESTIMATED GFR 120 mL/min (>=60)
[2022-08-20] MEDS ORDERED: Iopamidol 612 MG/ML 100 ML Bottle IVPUSH ONE (21:56)
[2022-08-21] MEDS ORDERED: Magnesium Citrate Solution 296 ML Bottle PO ONE (00:06)
[2022-08-21] MEDS ORDERED: Methylnaltrexone 12 MG/0.6 ML SDV SUBCUT ONE (00:07)
== END 2022-08-21 00:39 | disposition home or self-care (01) ==
LOC: DL.ED 20:30
DX: K59.00 Constipation, unspecified (principal); Z72.0 Tobacco use
CPT/HCPCS: 36415; 74177; 80053; 80305; 80307; 81001; 82150; 83605; 83690; 84145; 85025; 85610; 85730; 86140; 87040; 96361; 96372; 96374; 96375; 96376; 99283; 99284; A9270; J1170; J2212; J2405; J7030; Q9967

== ENCOUNTER 2022-11-02 13:22 | Emergency (ER) | payer MEDICAID ==
[~2022-11-02 13:22] MED LIST: Ketorolac 30 MG/ML SDV IVPUSH ONE; Ondansetron 4 MG/2 ML SDV IVPUSH ONE; Sodium Chloride 0.9% 1,000 ML IV ONE; Sodium Chloride 0.9% 10 ML Syringe FLUSH PRN
[2022-11-02 13:32] LABS: ANION GAP 13.1 mEq/L (7-13); CHLORIDE,CL 99 mmol/L (98-107); ESTIMATED GFR 115 mL/min (>=60); SODIUM,NA 136 mmol/L (136-145)
[2022-11-02 13:53] VITALS: BP 149/96; PULSE 120
[2022-11-02 15:00] LABS: AMPHETAMINES,URINE POSITIVE (NEGATIVE); BARBITURATES,URINE NEGATIVE (NEGATIVE); BENZODIAZEPINE,URINE NEGATIVE (NEGATIVE); MDMA (ECSTASY), URINE NEGATIVE (NEGATIVE); METHADONE,URINE NEGATIVE (NEGATIVE); METHAMPHETAMINES,URINE POSITIVE (NEGATIVE); OPIATES,URINE NEGATIVE (NEGATIVE); OXYCODONE,URINE NEGATIVE (NEGATIVE); PHENCYCLIDINE,URINE NEGATIVE (NEGATIVE); TCA,URINE NEGATIVE (NEGATIVE)
== END 2022-11-02 15:07 | disposition home or self-care (01) ==
LOC: DL.ED 13:22
DX: U07.1 COVID-19 (principal)
CPT/HCPCS: 36415; 80053; 80305; 81001; 83605; 83735; 84145; 85025; 86140; 87081; 87430; 87635; 87804; 96361; 96374; 96375; 99284; C1758; J1885; J2405; J3490; J7030; U0002

== ENCOUNTER 2023-06-19 08:43 | Emergency (ER) | payer MEDICAID ==
[2023-06-19] MEDS: Sodium Chloride 0.9% 10 ML Syringe FLUSH PRN ×3 (08:55→11:06)
[2023-06-19 08:59] LABS: BASOPHILS PERCENT AUTO 0.2 % (0.0-1.0); EOSINOPHILS PERCENT AUTO 2.4 % (1.0-3.0); HEMATOCRIT 42.7 % (40.0-54.0); HEMOGLOBIN 14.5 g/dL (14.0-18.0); LYMPHOCYTES PERCENT AUTO 21.5 % (20.5-50.1); MEAN CORPUSCULAR HEMOGLOBIN 30.8 pg (27.0-34.0); MEAN CORPUSCULAR VOLUME 90.7 fL (80-100); MONOCYTES PERCENT AUTO 10.2 % (2-8); NEUTROPHILS PERCENT AUTO 65.7 % (42.2-75.2); PLATELET COUNT,PLT 332 10^3/uL (150-450); RED BLOOD CELL COUNT 4.71 10^6/uL (4.6-6.2)
[2023-06-19 09:01] VITALS: BP 116/86; PULSE 107
[2023-06-19] MEDS ORDERED: Morphine 4 MG/ML Syringe IVPUSH ONE (09:20)
[2023-06-19] MEDS ORDERED: Ondansetron 8 MG in Sodium Chloride 0.9% 50 ML IV ONE (09:20)
[2023-06-19 09:23] LABS: A/G RATIO 0.8; ALBUMIN 3.5 g/dL (3.4-5.0); ANION GAP 11.6 mEq/L (7-13); BILIRUBIN TOTAL 0.6 mg/dL (0.2-1.0); BUN/CREATININE RATIO 22.4 (No establ ref range); CALCIUM 8.7 mg/dL (8.5-10.1); CREATININE 0.98 mg/dL (0.70-1.30); EST CRCL DRUG DOSING (CG) 101.39 mL/min; POTASSIUM,K 3.6 mmol/L (3.5-5.1); PROTEIN TOTAL,TP 7.7 g/dL (6.4-8.2)
[2023-06-19] MEDS ORDERED: Iopamidol 612 MG/ML 100 ML Bottle IVPUSH STA (09:54)
[2023-06-19] MEDS ORDERED: Ondansetron 4 MG/2 ML SDV IVPUSH ONE (10:15)
[2023-06-19 10:28] LABS: APPEARANCE,URINE CLEAR (CLEAR); BILIRUBIN,URINE NEGATIVE (NEGATIVE); COLOR,URINE YELLOW (YELLOW); GLUCOSE,URINE NEGATIVE (NEGATIVE); KETONES,URINE 15 (NEGATIVE); LEUKOCYTE ESTERASE,URINE SMALL (NEGATIVE); NITRITE,URINE NEGATIVE (NEGATIVE); OCCULT BLOOD,URINE TRACE-INTACT (NEGATIVE); PH,URINE 6.5 (5.0-9.0); PROTEIN,URINE NEGATIVE (NEGATIVE); UROBILINOGEN,URINE 0.2 mg/dL (0.2-1.0)
[2023-06-19 10:36] LABS: BACTERIA,URINE MODERATE /HPF (0-FEW/HPF); EPITHELIAL CELLS,URINE FEW /HPF (NOT SEEN); MUCUS,URINE FEW /LPF (NOT SEEN); RBC,URINE 0-5 /HPF (0-5); WBC,URINE 40-50 /HPF (0-5/HPF)
[2023-06-19] MEDS ORDERED: cefTRIAXone 1 GM Vial IVPUSH ONE (10:41)
[2023-06-19] MEDS ORDERED: Ketorolac 30 MG/ML SDV IVPUSH ONE (10:47)
== END 2023-06-19 11:51 | disposition home or self-care (01) ==
LOC: DL.ED 08:43
DX: N30.01 Acute cystitis with hematuria (principal); F17.210 Nicotine dependence, cigarettes, uncomplicated
CPT/HCPCS: 36415; 74177; 80053; 81001; 83690; 84484; 85025; 93005; 96374; 96375; 99285; J0696; J1885; J2270; J2405; Q9967; 93010; 99284; J3490

== ENCOUNTER 2023-06-21 19:32 | Emergency (ER) | payer MEDICAID ==
[2023-06-21] MEDS ORDERED: Ketorolac 30 MG/ML SDV IVPUSH ONE (21:20)
[2023-06-21] MEDS ORDERED: Ciprofloxacin 500 MG Tab PO ONE (21:36)
[2023-06-21 22:56] VITALS: BP 104/70; PULSE 87
[2023-06-21 23:11] LABS: APPEARANCE,URINE CLOUDY (CLEAR); BILIRUBIN,URINE NEGATIVE (NEGATIVE); COLOR,URINE YELLOW (YELLOW); GLUCOSE,URINE NEGATIVE (NEGATIVE); KETONES,URINE TRACE (NEGATIVE); LEUKOCYTE ESTERASE,URINE NEGATIVE (NEGATIVE); NITRITE,URINE NEGATIVE (NEGATIVE); OCCULT BLOOD,URINE NEGATIVE (NEGATIVE); PH,URINE 6.5 (5.0-9.0); PROTEIN,URINE NEGATIVE (NEGATIVE); UROBILINOGEN,URINE 0.2 mg/dL (0.2-1.0)
[2023-07-01 06:14] LABS: SOURCE URINE
== END 2023-06-21 23:10 | disposition home or self-care (01) ==
LOC: DL.ED 19:32
DX: N45.1 Epididymitis (principal); F17.210 Nicotine dependence, cigarettes, uncomplicated
CPT/HCPCS: 76870; 81003; 87491; 87563; 87591; 96374; 99284; A9270; J1885

== ENCOUNTER 2024-06-07 18:15 | Emergency (ER) | payer MEDICAID ==
[2024-06-07 18:41] VITALS: BP 132/75; PULSE 111
[2024-06-07] MEDS: Acetaminophen 500 MG Tab PO ONE (19:08)
[2024-06-07] MEDS: Lidocaine/Prilocaine 2.5-2.5% Crm 5 GM Tube TOP ONE (19:09)
[2024-06-07] MEDS: Ketorolac 30 MG/ML SDV IM ONE (19:09)
== END 2024-06-07 20:02 | disposition home or self-care (01) ==
LOC: DL.ED 18:15
DX: L98.499 Non-pressure chronic ulcer of skin of other sites with unspecified severity (principal); F17.210 Nicotine dependence, cigarettes, uncomplicated
CPT/HCPCS: 96372; 99283; A9270; J1885

== ENCOUNTER 2025-03-04 18:28 | Emergency (ER) | payer MEDICAID ==
[2025-03-04] MEDS: Sodium Chloride 0.9% 1,000 ML IV ONE (18:55)
[2025-03-04 19:20] LABS: APPEARANCE,URINE SLIGHTLY CLOUDY (CLEAR); BASOPHILS PERCENT AUTO 0.1 % (0.0-1.0); BILIRUBIN,URINE MODERATE (NEGATIVE); COLOR,URINE YELLOW (YELLOW); EOSINOPHILS PERCENT AUTO 0.4 % (1.0-3.0); GLUCOSE,URINE NEGATIVE (NEGATIVE); HEMATOCRIT 46.2 % (40.0-54.0); HEMOGLOBIN 14.3 g/dL (14.0-18.0); KETONES,URINE TRACE (NEGATIVE); LEUKOCYTE ESTERASE,URINE LARGE (NEGATIVE); LYMPHOCYTES PERCENT AUTO 24.7 % (20.5-50.1); MEAN CORPUSCULAR HEMOGLOBIN 28.7 pg (27.0-34.0); MEAN CORPUSCULAR VOLUME 92.8 fL (80-100); MONOCYTES PERCENT AUTO 5.7 % (2-8); NEUTROPHILS PERCENT AUTO 69.1 % (42.2-75.2); NITRITE,URINE NEGATIVE (NEGATIVE); OCCULT BLOOD,URINE MODERATE (NEGATIVE); PH,URINE 6.5 (5.0-9.0); PLATELET COUNT,PLT 264 10^3/uL (150-450); PROTEIN,URINE 100 (NEGATIVE); RED BLOOD CELL COUNT 4.98 10^6/uL (4.6-6.2); UROBILINOGEN,URINE 0.2 mg/dL (0.2-1.0); WHITE BLOOD CELL COUNT,WBC 8.4 10^3/uL (5.0-10.0)
[2025-03-04] MEDS: Ketorolac 30 MG/ML SDV IVPUSH ONE (19:35)
[2025-03-04] MEDS: Ondansetron 4 MG/2 ML SDV IVPUSH ONE (19:35)
[2025-03-04 19:38] LABS: BACTERIA,URINE MODERATE /HPF (0-FEW/HPF); EPITHELIAL CELLS,URINE FEW /HPF (NOT SEEN); HYALINE CASTS,URINE FEW; MUCUS,URINE FEW /LPF (NOT SEEN); WBC,URINE SEMI-PACKED /HPF (0-5/HPF)
[2025-03-04 19:41] LABS: ALANINE AMINOTRANSFERASE,ALT 40 U/L (16-63); ALBUMIN 3.1 g/dL (3.4-5.0); ALKALINE PHOSPHATASE 106 U/L (46-116); ANION GAP 12.6 mEq/L (7-13); ASPARTATE AMNIOTRANSFERASE,AST 30 U/L (15-37); BILIRUBIN TOTAL 0.3 mg/dL (0.2-1.0); BLOOD UREA NITROGEN,BUN 24 mg/dL (7-18); BUN/CREATININE RATIO 18.5 (No establ ref range); C-REACTIVE PROTEIN 12.48 ng/dL (<=0.50); CALCIUM 8.7 mg/dL (8.5-10.1); CARBON DIOXIDE,CO2 25 mmol/L (21-32); CHLORIDE,CL 101 mmol/L (98-107); GLUCOSE RANDOM 158 mg/dL (70-99); POTASSIUM,K 3.6 mmol/L (3.5-5.1); PROTEIN TOTAL,TP 7.9 g/dL (6.4-8.2); SODIUM,NA 135 mmol/L (136-145)
[2025-03-04] MEDS: cefTRIAXone 2 GM Vial IVPUSH ONE (19:41)
[2025-03-04 19:45] LABS: A/G RATIO 0.65; ESTIMATED GFR 70 mL/min (>=60); LACTIC ACID 3.3 mmol/L (0.4-2.0)
[2025-03-04 20:49] VITALS: BP 84/67; PULSE 84
== END 2025-03-04 20:22 | disposition home or self-care (01) ==
LOC: DL.ED 18:28
DX: N30.01 Acute cystitis with hematuria (principal); Z79.899 Other long term (current) drug therapy
CPT/HCPCS: 36415; 80053; 81001; 83605; 83735; 85025; 86140; 87040; 87086; 87088; 87186; 96361; 96374; 96375; 99283; 99284; C1758; J0696; J1885; J2405; J7030; 87077

== ENCOUNTER 2025-06-24 08:18 | Emergency (ER) | payer MEDICAID ==
[2025-06-24] MEDS: Sodium Chloride 0.9% 10 ML Syringe FLUSH PRN (08:45)
[2025-06-24 09:02] LABS: PLATELET COUNT,PLT 397 10^3/uL (150-450); RED BLOOD CELL COUNT 3.89 10^6/uL (4.6-6.2); WHITE BLOOD CELL COUNT,WBC 14.3 10^3/uL (5.0-10.0)
[2025-06-24 09:08] LABS: BASOPHILS PERCENT AUTO 0.1 % (0.0-1.0); EOSINOPHILS PERCENT AUTO 0.6 % (1.0-3.0); LYMPHOCYTES PERCENT AUTO 12.3 % (20.5-50.1); MONOCYTES PERCENT AUTO 10.6 % (2-8); NEUTROPHILS PERCENT AUTO 76.4 % (42.2-75.2)
[2025-06-24 09:23] LABS: APPEARANCE,URINE CLEAR (CLEAR); GLUCOSE,URINE NEGATIVE (NEGATIVE); OCCULT BLOOD,URINE NEGATIVE (NEGATIVE)
[2025-06-24 09:31] LABS: ALANINE AMINOTRANSFERASE,ALT 22.0 U/L (16-63); ASPARTATE AMNIOTRANSFERASE,AST 16.0 U/L (15-37); BILIRUBIN TOTAL 0.6 mg/dL (0.2-1.0); BLOOD UREA NITROGEN,BUN 14.0 mg/dL (7-18); CARBON DIOXIDE,CO2 24.0 mmol/L (21-32); CHLORIDE,CL 100.0 mmol/L (98-107); CREATININE 0.65 mg/dL (0.70-1.30); EST CRCL DRUG DOSING (CG) 141.43 mL/min; GLUCOSE RANDOM 112.0 mg/dL (70-99); POTASSIUM,K 3.7 mmol/L (3.5-5.1); PROTEIN TOTAL,TP 6.8 g/dL (6.4-8.2); SODIUM,NA 134.0 mmol/L (136-145)
[2025-06-24 09:32] LABS: A/G RATIO 0.58; ESTIMATED GFR 119.0 mL/min (>=60)
[2025-06-24 09:37] LABS: LACTIC ACID 1.0 mmol/L (0.4-2.0)
[2025-06-24 09:50] LABS: BAND PERCENT MAN 6 %; LYMPHOCYTES PERCENT MAN 14 % (20-50); MONOCYTES PERCENT MAN 8 % (2-8); SEG NEUTROPHILS PERCENT MAN 72 % (42-75)
[2025-06-24 10:09] VITALS: BP 116/81; PULSE 96
== END 2025-06-24 10:33 ==
LOC: EEVIPCON 08:18 → DL.ED 08:18
DX: J18.9 Pneumonia, unspecified organism (principal); Z79.899 Other long term (current) drug therapy
CPT/HCPCS: 36415; 71045; 80053; 81003; 83605; 84145; 85025; 86140; 87040; 96361; 96374; 99285; C1758; J0696; J7030

== ENCOUNTER 2025-08-31 08:23 | Emergency (ER) | payer MEDICAID ==
[2025-08-31 08:46] LABS: APPEARANCE,URINE SLIGHTLY CLOUDY (CLEAR); GLUCOSE,URINE NEGATIVE (NEGATIVE); OCCULT BLOOD,URINE NEGATIVE (NEGATIVE)
[2025-08-31 08:55] LABS: EPITHELIAL CELLS,URINE FEW /HPF (NOT SEEN)
[2025-08-31 09:30] VITALS: BP 114/67; PULSE 89
== END 2025-08-31 09:28 ==
LOC: DL.ED 08:23
DX: N30.01 Acute cystitis with hematuria (principal); R20.2 Paresthesia of skin; Z79.899 Other long term (current) drug therapy
CPT/HCPCS: 81001; 87086; 87088; 87186; 99283; A9270; C1758